=== PATIENT | female | born 1960 | race Caucasian/White ===

== ENCOUNTER 2020-01-28 08:38 | Outpatient (REF) | payer OTHER, SELFPAY ==
[2020-01-28 11:34] LABS: Estimated Average Glucose 163 mg/dL; Hemoglobin A1c % 7.3 %
[2020-01-28 11:58] LABS: Alanine Aminotransferase 36 U/L (0-31); Albumin Level 4.3 g/dL (3.5-5.0); Alkaline Phosphatase 91 U/L (39-117); Anion Gap 15 (12-20); Aspartate Amino Transferase 21 U/L (5-31); Bilirubin Total 0.4 mg/dL (0.0-1.0); Blood Urea Nitrogen 13 mg/dL (9-16); Calcium 8.7 mg/dL (8.4-10.2); Carbon Dioxide 21 mmol/L (22-29); Chloride 105 mmol/L (96-108); Cholesterol 203 mg/dL; Estimated Glomerular Filt Rate > 60; Glucose Fasting 163 mg/dL (60-99); HDL Cholesterol 50 mg/dL; LDL Cholesterol Calculated 116 mg/dl; Potassium 4.2 mmol/l (3.3-5.1); Sodium 137 mmol/L (135-145); Total Protein 6.8 g/dL (6.5-8.0); Triglycerides 187 mg/dL
== END 2020-01-28 08:39 | disposition home or self-care (01) ==
LOC: HO.MANLR 08:38
PROVIDERS: PCP Physician Assistant; Visit Provider Physician Assistant
DX: E78.00 Pure hypercholesterolemia, unspecified (principal); E11.9 Type 2 diabetes mellitus without complications
CPT/HCPCS: 80053; 80061; 83036

== ENCOUNTER 2020-07-23 07:30 | Outpatient (REF) | payer OTHER, SELFPAY ==
[2020-07-23 11:51] LABS: Estimated Average Glucose 192 mg/dL; Hemoglobin A1c % 8.3 %
[2020-07-23 12:05] LABS: Alanine Aminotransferase 55 U/L (0-31); Albumin Level 4.6 g/dL (3.5-5.0); Alkaline Phosphatase 97 U/L (39-117); Anion Gap 16 (12-20); Aspartate Amino Transferase 36 U/L (5-31); Bilirubin Total 0.7 mg/dL (0.0-1.0); Blood Urea Nitrogen 13 mg/dL (9-16); Calcium 9.3 mg/dL (8.4-10.2); Carbon Dioxide 23 mmol/L (22-29); Chloride 101 mmol/L (96-108); Cholesterol 212 mg/dL; Estimated Glomerular Filt Rate > 60; Glucose Fasting 165 mg/dL (60-99); HDL Cholesterol 53 mg/dL; LDL Cholesterol Calculated 111 mg/dl; Potassium 4.4 mmol/L (3.3-5.1); Sodium 136 mmol/L (135-145); Total Protein 7.3 g/dL (6.5-8.0); Triglycerides 241 mg/dL
[2020-07-23 13:31] LABS: Creatinine Urine 42.06 mg/dL; Microalbum/Creatinine Ratio Ur 11.8 ug/mg cr
== END 2020-07-23 07:31 | disposition home or self-care (01) ==
LOC: HO.MANLDS 07:30
PROVIDERS: PCP Internal Medicine; Visit Provider Physician Assistant
DX: E78.00 Pure hypercholesterolemia, unspecified (principal); E11.9 Type 2 diabetes mellitus without complications
CPT/HCPCS: 36415; 80053; 80061; 82043; 83036

== ENCOUNTER 2020-11-02 08:29 | Outpatient (REF) | payer OTHER, SELFPAY ==
[2020-11-02 11:53] LABS: Estimated Average Glucose 177 mg/dL; Hemoglobin A1c % 7.8 %
== END 2020-11-02 08:30 | disposition home or self-care (01) ==
LOC: HO.MANLDS 08:29
PROVIDERS: PCP Physician Assistant; Visit Provider Physician Assistant
DX: E78.00 Pure hypercholesterolemia, unspecified (principal); E11.9 Type 2 diabetes mellitus without complications
CPT/HCPCS: 36415; 83036

== ENCOUNTER 2020-11-29 10:47 | Outpatient (REF) | payer OTHER, SELFPAY ==
--- NOTE | ~2020-11-29 | MM_ITS ---
EXAMINATION: MM SCREENING DIGITAL BREAST TOMOSYNTHESIS, BILATERAL CLINICAL INFORMATION: Screening. Asymptomatic. The lifetime risk of breast cancer based on the Tyrer-Cuzick Model is 7%. COMPARISON: Mammography: 09/04/2019, 08/23/2018, 08/09/2017. TECHNIQUE: Digital breast tomosynthesis is performed in both the craniocaudal and mediolateral oblique views along with computer-aided detection (CAD). Synthesized 2D images are generated from the tomosynthesis. FINDINGS: The breasts are almost entirely fatty (ACR BI-RADS breast composition Category a). Background stromal densities are similar to prior exams. No developing density. There are no significant masses, abnormal calcifications, or other abnormalities. The axilla and skin contours are unremarkable. MM/MM tomosynthesis screening BI IMPRESSION: No mammographic evidence of malignancy. ASSESSMENT: BI-RADS 1: Negative RECOMMENDATION: Routine annual mammography screening. This patient's information was entered into a reminder system with a target due date for their next mammogram.
== END 2020-11-29 10:48 | disposition home or self-care (01) ==
LOC: HO.MAMMO 10:47
PROVIDERS: Visit Provider Internal Medicine
DX: Z12.31 Encounter for screening mammogram for malignant neoplasm of breast (principal)
CPT/HCPCS: 77063; 77067

== ENCOUNTER 2021-01-26 08:28 | Outpatient (REF) | payer OTHER, SELFPAY ==
[2021-01-26 11:13] LABS: Estimated Average Glucose 154 mg/dL
[2021-01-26 11:51] LABS: Creatinine Urine 117.81 mg/dL; Microalbum/Creatinine Ratio Ur 7.6 ug/mg cr
[2021-01-26 11:58] LABS: Alanine Aminotransferase 24 U/L (0-31); Albumin Level 4.5 g/dL (3.5-5.0); Alkaline Phosphatase 83 U/L (39-117); Anion Gap 13 (12-20); Aspartate Amino Transferase 19 U/L (5-31); Bilirubin Total 0.8 mg/dL (0.0-1.0); Blood Urea Nitrogen 11 mg/dL (9-16); Calcium 9.7 mg/dL (8.4-10.2); Carbon Dioxide 24 mmol/L (22-29); Chloride 105 mmol/L (96-108); Cholesterol 179 mg/dL; Estimated Glomerular Filt Rate > 60; Glucose Fasting 146 mg/dL (60-99); HDL Cholesterol 48 mg/dL; LDL Cholesterol Calculated 101 mg/dl; Potassium 4.2 mmol/L (3.3-5.1); Sodium 138 mmol/L (135-145); Triglycerides 151 mg/dL
== END 2021-01-26 08:29 | disposition home or self-care (01) ==
LOC: HO.MANLDS 08:28
PROVIDERS: PCP Physician Assistant; Visit Provider Physician Assistant
DX: E78.00 Pure hypercholesterolemia, unspecified (principal); E11.9 Type 2 diabetes mellitus without complications
CPT/HCPCS: 36415; 80053; 80061; 82043; 83036

== ENCOUNTER 2021-04-22 11:05 | Outpatient (REF) | payer OTHER, SELFPAY ==
[2021-04-22 13:54] LABS: Estimated Average Glucose 160 mg/dL; Hemoglobin A1c % 7.2 %
== END 2021-04-22 11:06 | disposition home or self-care (01) ==
LOC: HO.MANLDS 11:05
PROVIDERS: PCP Physician Assistant; Visit Provider Physician Assistant
DX: E11.9 Type 2 diabetes mellitus without complications (principal)
CPT/HCPCS: 36415; 83036

== ENCOUNTER 2021-07-29 09:03 | Outpatient (REF) | payer OTHER, SELFPAY ==
[2021-07-29 11:41] LABS: Creatinine Urine 114.74 mg/dL; Microalbum/Creatinine Ratio Ur 17.4 ug/mg cr
[2021-07-29 11:42] LABS: Estimated Average Glucose 157 mg/dL; Hemoglobin A1c % 7.1 %
[2021-07-29 12:30] LABS: Alanine Aminotransferase 18 U/L (0-31); Albumin Level 4.2 g/dL (3.5-5.0); Alkaline Phosphatase 80 U/L (39-117); Anion Gap 14 (12-20); Aspartate Amino Transferase 14 U/L (5-31); Bilirubin Total 0.4 mg/dL (0.0-1.0); Blood Urea Nitrogen 13 mg/dL (9-16); Carbon Dioxide 23 mmol/L (22-29); Chloride 103 mmol/L (96-108); Cholesterol 191 mg/dL; Estimated Glomerular Filt Rate > 60; Glucose Random 146 mg/dL (60-115); HDL Cholesterol 47 mg/dL; LDL Cholesterol Calculated 114 mg/dl; Potassium 4.4 mmol/L (3.3-5.1); Sodium 136 mmol/L (135-145); Total Protein 6.7 g/dL (6.5-8.0); Triglycerides 152 mg/dL
== END 2021-07-29 09:04 | disposition home or self-care (01) ==
LOC: HO.MANLDS 09:03
PROVIDERS: Visit Provider Physician Assistant
DX: E11.9 Type 2 diabetes mellitus without complications (principal)
CPT/HCPCS: 36415; 80053; 80061; 82043; 83036

== ENCOUNTER 2021-10-25 13:36 | Outpatient (REF) | payer OTHER, SELFPAY ==
[2021-10-25 19:00] LABS: Estimated Average Glucose 154 mg/dL
== END 2021-10-25 13:37 | disposition home or self-care (01) ==
LOC: HO.MANLDS 13:36
PROVIDERS: Visit Provider Physician Assistant
DX: E11.9 Type 2 diabetes mellitus without complications (principal)
CPT/HCPCS: 36415; 83036

== ENCOUNTER 2021-11-11 09:59 | Emergency (ER) | payer OTHER, SELFPAY ==
--- NOTE | ~2021-11-11 | CT_ITS ---
EXAMINATION: CT ABDOMEN AND PELVIS WITH CONTRAST CLINICAL INFORMATION: Lower abdominal pain COMPARISON: CT abdomen and pelvis 08/11/2011 TECHNIQUE: Multidetector volumetric images were obtained from the superior aspect of the liver through the pubic symphysis following administration 85 mL of Omnipaque 350 intravenous contrast. Sagittal and coronal reformatted images were obtained on the technologist's workstation. Oral contrast: No This CT examination was performed using dose optimization techniques as appropriate, variously including the following: *Automated exposure control *Adjustment of mA and/or kV according to patient size (this includes techniques or standardized protocols for targeted exams where dose is matched to indication/reason for exam; i.e. extremities or head) *Use of iterative reconstruction technique DLP: 606 mGy-cm FINDINGS: LUNG BASES: The visualized lung bases are unremarkable. LIVER, GALLBLADDER, AND BILIARY TREE: Slight hepatic hypoattenuation suggesting mild steatosis. No liver lesion. No biliary ductal dilation. Status post cholecystectomy. PANCREAS: Unremarkable. SPLEEN: Unremarkable. ADRENAL GLANDS: Unremarkable. KIDNEYS AND URETERS: The kidneys are normal in size, shape, and attenuation. No hydronephrosis, hydroureter, or calculi seen. No perinephric stranding. BLADDER: Unremarkable. GASTROINTESTINAL TRACT: Sigmoid diverticulosis with segmental mural thickening of the sigmoid colon with extensive pericolonic inflammatory change consistent with acute diverticulitis. No intramural or pericolonic abscess. No extraluminal gas to suggest perforation. No additional bowel wall thickening. No dilated bowel loops. Appendix is not discretely visualized. No inflammatory change the base of the cecum. No ascites or free air. ABDOMINAL WALL: Small fat-containing umbilical hernia. LYMPH NODES: No lymphadenopathy. VASCULAR: Normal caliber abdominal aorta. Moderate atherosclerotic vascular calcifications and noncalcified plaque. PELVIC VISCERA: Unremarkable. OSSEOUS STRUCTURES: No acute fracture or suspicious osseous lesion. CT/CT abdomen pelvis w IV con IMPRESSION: 1. Findings compatible with acute sigmoid diverticulosis. No abscess or perforation identified. 2. Mild hepatic steatosis.
[2021-11-11 10:32] VITALS: BP 163/77; PULSE 100; RESP 18; TEMP 36.8; O2SAT 97; BMI 28.1
[2021-11-11 11:47] LABS: MANUAL DIFF FLAG NO
[2021-11-11 11:50] LABS: Basophils Percent Auto 0.3 % (0-2); Eosinophils Absolute Auto 0.1 X10*3/uL (0.0-0.4); Eosinophils Percent Auto 0.9 % (0-4); Hematocrit 40.7 % (37.0-47.0); Hemoglobin 13.4 g/dl (12.0-16.0); Imm Gran Abs Auto 0.03 X10*3/uL (0.00-0.03); Imm Gran Pct Auto 0.2 % (0.0-0.4); Lymphocytes Absolute Auto 1.9 X10*3/uL (1.2-4.9); Lymphocytes Percent Auto 14.8 % (20-40); Mean Corpuscular HGB Conc 32.9 g/dl (31.0-35.0); Mean Corpuscular Hemoglobin 30.8 pg (27.0-33.0); Mean Corpuscular Volume 93.6 fL (80.0-98.0); Mean Platelet Volume 8.8 fL (9.4-12.3); Monocytes Absolute Auto 0.9 X10*3/uL (0.1-1.2); Monocytes Percent Auto 7.2 % (2-11); Neutrophils Absolute Auto 9.8 x10*3/uL (2.0-8.3); Neutrophils Percent Auto 76.6 % (45-73); Platelet Count 392 X10*3/uL (160-400); Red Blood Count 4.35 X10*6/uL (4.20-5.50); Red Cell Distribution Width 12.2 % (11.0-16.0); White Blood Count 12.8 X10*3/uL (4.8-10.8)
[2021-11-11 12:10] LABS: Alanine Aminotransferase 24 U/L (0-31); Albumin Level 4.6 g/dL (3.5-5.0); Alkaline Phosphatase 115 U/L (39-117); Anion Gap 19 (12-20); Aspartate Amino Transferase 17 U/L (5-31); Bilirubin Direct 0.3 mg/dL (0.0-0.5); Bilirubin Total 0.8 mg/dL (0.0-1.0); Blood Urea Nitrogen 9 mg/dL (9-16); Calcium 9.8 mg/dL (8.4-10.2); Carbon Dioxide 23 mmol/L (22-29); Chloride 103 mmol/L (96-108); Creatinine Clr Calc Pharmacy 71.1; Estimated Glomerular Filt Rate > 60; Glucose Random 186 mg/dL (60-115); Lipase 14 U/L (8-78); Potassium 4.4 mmol/L (3.3-5.1); Sodium 141 mmol/L (135-145); Total Protein 7.5 g/dL (6.5-8.0)
[2021-11-11 15:11] VITALS: BP 153/78; PULSE 93; RESP 18; TEMP 36.7; O2SAT 98
[2021-11-11 16:24] LABS: Appearance Urine Clear; Color Urine Yellow; Glucose Urine UA Negative (Negative); Leukocyte Esterase Urine Trace (Negative); Nitrite Urine Negative (Negative); Specific Gravity - Urine <= 1.005 (1.005-1.025); UMIC TRIGGER UACC YES; Urine Blood Negative (Negative); Urine Ketones Trace mg/dL (Negative); Urine Protein Negative (Neg-Trace)
[2021-11-11 16:51] VITALS: BP 148/70; PULSE 85; RESP 18; TEMP 36.9; O2SAT 98
--- NOTE | 2021-11-11 16:56 | ED_ITS ---
HPI - Abdominal Pain General Chief Complaint: Abdominal Pain Stated Complaint: lower abd pain Time Seen by Provider: 11/11/21 16:47 Source: patient Mode of arrival: ambulatory Limitations: no limitations History of Present Illness HPI narrative: 60-year-old female with no pertinent PMHx presenting to the ED for evaluation of lower abdominal pain x 5 days. The patient tells me that since last Sunday she has been having intermittent lower abdominal pain, worse on the right side, that comes in waves. She tells me that the pain feels somewhat similar to a past incident when she had an abscess on her appendix. She was treated conservatively at that time with antibiotics and still has her appendix. She also reports associated nausea and states that she has been eating but somewhat less than usual. She has been sure to stay hydrated. She denies any changes in bowel habits including diarrhea or constipation. She has had a cholecystectomy in the past. Patient has been able to tollerate PO at home. Has had a normal colonoscopy a few years ago. Denies any vomiting, chest pain, shortness of breath, headache, dizziness, dysuria, vaginal discharge, vaginal bleeding. Related Data Previous Rx's Medication Instructions Recorded levofloxacin 750 mg tablet 750 mg PO DAILY 7 days #7 tabs 11/11/21 metronidazole 500 mg tablet 500 mg PO BID 7 days #14 tabs 11/11/21 ondansetron 4 mg disintegrating 4 mg PO Q6H PRN nausea and 11/11/21 tablet vomiting #14 tabs Allergies Allergy/AdvReac Type Severity Reaction Status Date / Time No Known Allergies Allergy Unverified 11/06/19 14:44 Review of Systems Review of Systems Constitutional : No Weight loss, No Fever, No Chills, + Fatigue, No Malaise ENT/Mouth : No sore throat, No Rhinorrhea Eyes: No Eye Pain, No Swelling, No Redness Cardiovascular : No Chest Pain, No SOB, No Dyspnea on Exertion, No Orthopnea, No Edema, No Palpitations Respiratory : No Cough, No Sputum, No Wheezing Gastrointestinal : + Nausea, No Vomiting, No Diarrhea, No Constipation, + abdominal Pain, No Hematochezia, No Melena Genitourinary : No Dysuria, No Urinary Frequency, No Hematuria, Musculoskeletal : No joint pain, No Myalgias, No Joint Swelling Skin : No Skin Lesions, No rash Neuro : No Weakness, No Numbness, No Dizziness, No Headache All other systems reviewed and are negative Yes all other systems are reviewed and are negative [facility] Past Medical History Attestation statement: The following information was validated with the patient. Source: old records reviewed and nursing notes reviewed Social History Social History Alcohol intake: former Patient Tobacco Use Status: Former Tobacco user Smoked in Last 30 Days: No Use of substances other than those prescribed or required for medical reasons: No Advance Directives: No Advance Directives Information Provided: Yes Physical Exam ED Vital Signs: Vital Signs - 24 hr 11/11/21 10:32 11/11/21 15:11 11/11/21 16:51 Temperature 98.3 F 98.0 F 98.5 F Pulse Rate 100 93 85 Respiratory Rate 18 18 18 Blood Pressure 163/77 H 153/78 H 148/70 H Pulse Oximetry 97 98 98 Oxygen Delivery Method Room Air Room Air Room Air 11/11/21 18:18 Temperature 98.2 F Pulse Rate 77 Respiratory Rate 16 Blood Pressure 140/55 H Pulse Oximetry 98 Oxygen Delivery Method Room Air BMI result Body Mass Index 28.1 vss Appearance: Alert.? Oriented X3.? No acute distress.? Head: Normocephalic, atraumatic, no step-offs or deformities Eyes: Pupils equal, round and reactive to light.? Neck: Normal inspection.? Neck supple.? CVS: Normal heart rate and rhythm.? Pulses normal.? Respiratory: No respiratory distress.? Breath sounds normal.? Abdomen: Soft. Non-distended. Mild tenderness to the lower abdomen, worse on the right side. +BS. No CVA tenderness. Negative [place], [place], [place] sign. Skin: Skin warm and dry.? Normal skin color.? Normal skin turgor.? Extremities: No lower extremity edema.? No calf ttp. 5/5 strength to bilateral upper and lower extremities Neuro: Oriented X 3.? No motor deficit.? No sensory deficit. CN 2-12 intact Course Reevaluation(s) Reevaluation #1: CBC with leukocytosis to 12.8. Chemistry within normal limits. Urine with trace leukcoyte esterase, remainder negative. CT abd/pelvis pending. Time: 17:14 Reevaluation #2: Patient's CT scan concerning for diverticulitis, patient will be given Levaquin and metronidazole. Patient complaining of some nausea after eating. Will continue to monitor. Disposition pending re-evaluation. No need for blood cu ltures and a lactic as this time as patient is not meeting criteria for sepsis, patient appears well, and there is very low suspicion. Time: 18:55 Reevaluation #3: Upon re-evaluation patient is tolerating p.o. well, able to tolerate food and liquids, I did have a discussion with patient about staying in the hospital for observation and antibiotics however patient tells me she would prefer to go home, I educated her on worrisome signs and symptoms and when to return. Will discharge patient home on Levaquin and metronidazole. This time I feel comfortable discharge home with prompt PCP and GI follow-up and patient is to return with any new or worsening symptoms. Time: 19:36 MDM - Abdominal Pain MDM Narrative Medical decision making narrative: [id number] 60 year old female presents with coplaints of right lower abdominal pain and nausea x 1 week. History of appendiceal abscess, similar pain at that time. No fevers, chills. PE remarkable for mild lower abdominal tenderness, worse on the right. No peritoneal signs. Possibly recurrent appendiceal abscess vs. appendicits, viral gastroenteritis. Other differentials include diverticulitis, gastritis. Unlikely ovarian torsion. No signs of acute abdomen. Plan labs, urine, imaging, Zofran. Medical Records Attestation: I reviewed the patient's medical records. Lab Data Attestation: I reviewed the patient's lab results. Result diagrams: 11/11/21 11:43 11/11/21 11:43 Labs: Lab Results 11/11/21 11/11/21 11/11/21 Range/Units 11:43 11:43 16:18 WBC 12.8 H (4.8-10.8) X10*3/uL RBC 4.35 (4.20-5.50) X10*6/uL Hgb 13.4 (12.0-16.0) g/dl Hct 40.7 (37.0-47.0) % MCV 93.6 (80.0-98.0) fL MCH 30.8 (27.0-33.0) pg MCHC 32.9 (31.0-35.0) g/dl RDW 12.2 (11.0-16.0) % Plt Count 392 (160-400) X10*3/uL MPV 8.8 L (9.4-12.3) fL Immature Gran % (Auto) 0.2 (0.0-0.4) % Neut % (Auto) 76.6 H (45-73) % Lymph % (Auto) 14.8 L (20-40) % [place] % (Auto) 7.2 (2-11) % Eos % (Auto) 0.9 (0-4) % Baso % (Auto) 0.3 (0-2) % Lymph # (Auto) 1.9 (1.2-4.9) X10*3/uL [place] # (Auto) 0.9 (0.1-1.2) X10*3/uL Eos # (Auto) 0.1 (0.0-0.4) X10*3/uL Baso # (Auto) 0.0 (0.0-0.2) X10*3/uL Abs Immat Gran (auto) 0.03 (0.00-0.03) X10*3/uL Absolute Neuts (auto) 9.8 H (2.0-8.3) x10*3/uL Absolute Nucleated RBC 0.000 (0.0-0.012) X10*3/uL Nucleated RBC % (auto) 0.0 (0.0-0.2) /100WBC Sodium 141 (135-145) mmol/L Potassium 4.4 (3.3-5.1) mmol/L Chloride 103 (96-108) mmol/L Carbon Dioxide 23 (22-29) mmol/L Anion Gap 19 (12-20) BUN 9 (9-16) mg/dL Creatinine 0.81 (0.5-1.4) mg/dL Estim Creat Clear Calc 71.1 Estimated GFR > 60 Random Glucose 186 H (60-115) mg/dL Calcium 9.8 D (8.4-10.2) mg/dL Total Bilirubin 0.8 (0.0-1.0) mg/dL Direct Bilirubin 0.3 (0.0-0.5) mg/dL AST 17 (5-31) U/L ALT 24 (0-31) U/L Alkaline Phosphatase 115 D (39-117) U/L Total Protein 7.5 (6.5-8.0) g/dL Albumin 4.6 (3.5-5.0) g/dL Lipase 14 (8-78) U/L Urine Color Yellow Urine Appearance Clear Urine pH 6.0 (5.0-9.0) Ur Specific Catherine <= 1.005 (1.005-1.025) Urine Protein Negative (Neg-Trace) mg/dL Urine Glucose (UA) Negative (Negative) mg/dL Urine Ketones Trace (Negative) mg/dL Urine Blood Negative (Negative) Urine Nitrite Negative (Negative) Ur Leukocyte Esterase Trace H (Negative) Urine RBC 0-2 (0-2) /HPF Urine WBC 0-5 (0-5) /HPF Ur Squamous Epith Cells 0-2 (0-2) /HPF Urine Bacteria None Seen (None Seen) Hyaline Casts 0-2 (0-2) /LPF Critical Care Time Critical Care Time Critical Care Time: No Discharge Plan Discharge Clinical Impression: Diverticulitis, Nausea Patient Disposition: Home, Self-Care Instructions: Diverticulitis (ED), Acute Nausea and Vomiting (ED), Diverticulitis Diet (ED), Acute Abdominal Pain (ED) Additional Instructions: Take your medications as prescribed. If you were prescribed antibiotics today, it is important that you take your medication to their entirety, do not skip any doses, do not finish them early. Follow-up with your primary care provider this week. Follow-up with GI Return to the emergency department with new or worsening symptoms. Such as fevers, chills, chest pain, shortness of breath, nausea, vomiting, dizziness, headache, vision changes, lethargy, worsening pain In case of emergency call 911 Zofran is medication that has been sent to your pharmacy for nausea and vomiting, please take this as prescribed, taking more than the prescribed dose can lead to adverse cardiac events. Antibiotics have been sent to your pharmacy, Levaquin is an antibiotic that but lungs to the fluoroquinolone drug class, this class has a black box warning or warning of tendon rupture, of you experience any pain to joints, it is important that you seek medical attention immediately. Return with new or worsening symptoms. Prescriptions: New metronidazole 500 mg tablet 500 mg PO BID 7 Days Qty: 14 0RF levofloxacin 750 mg tablet 750 mg PO DAILY 7 Days Qty: 7 0RF ondansetron 4 mg tablet,disintegrating 4 mg PO Q6H PRN (Reason: nausea and vomiting) Qty: 14 0RF Referrals: [facility] [place] [facility] [Provider Group] - 3 days Diego Alex MD [Primary Care Provider] - 2 days Stand Alone Forms: Work/School Release
[2021-11-11] MEDS: ondansetron HCL 4 MG/2 ML VIAL IVPUSH (17:21)
[2021-11-11] MEDS: iohexoL 350 MG/ML 100 ML INFUS..BTL IV (17:54)
[2021-11-11 18:18] VITALS: BP 140/55; PULSE 77; RESP 16; TEMP 36.8; O2SAT 98
[2021-11-11 18:50] LABS: Bacteria Urine None Seen (None Seen); Hyaline Casts Urine 0-2 /LPF (0-2); RBC Urine 0-2 /HPF (0-2); Squamous Epithelial Cell Urine 0-2 /HPF (0-2); WBC Urine 0-5 /HPF (0-5)
--- NOTE | 2021-11-11 19:05 | PC.NURSE ---
Spoke to [place], provider-no lactic acid, blood cultures draw needed.
[2021-11-11] MEDS: Ketorolac Tromethamine 15 MG/ML VIAL IVPUSH (19:09)
[2021-11-11] MEDS: levoFLOXacin/D5W 750 MG/150 ML PIGGYBACK 100 MG IV (19:10)
--- NOTE | 2021-11-11 19:20 | PC.NURSE ---
Patient is alert and oriented x5, pleasant and cooperative. VSS. Patient reports pain is right lower quadrant 2/10 at present, patient describes pain as achy, cramping. Patient assisted to the restroom. Patient ambulates independently. Gait is steady. Meds administered per APR.
[2021-11-11] MEDS: metroNIDAZOLE/NS 500 MG/100 ML PIGGYBACK 100 MG IV (20:52)
--- NOTE | 2021-11-11 22:14 | PC.NURSE ---
Patient denies nausea at this time. Patient tolerated eating peanut butter sandwich with jean shari well.
[2021-11-11 22:15] VITALS: BP 128/74; PULSE 68; RESP 18; TEMP 36.8; O2SAT 99
== END 2021-11-11 22:17 | disposition home or self-care (01) ==
PROVIDERS: Emergency Provider Student in an Organized Health Care Education/Training Program; PCP Internal Medicine
DX: K57.32 Diverticulitis of large intestine without perforation or abscess without bleeding (principal); R11.0 Nausea
CPT/HCPCS: 36415; 74177; 80053; 81001; 82248; 83690; 85025; 96365; 96375; 99284; 99285; J1885; J1956; J2405; Q9967

== ENCOUNTER 2021-11-14 11:22 | Outpatient (REF) | payer OTHER, SELFPAY ==
[2021-11-14 14:19] LABS: Anion Gap 18 (12-20); Blood Urea Nitrogen 9 mg/dL (9-16); Calcium 9.8 mg/dL (8.4-10.2); Carbon Dioxide 24 mmol/L (22-29); Chloride 102 mmol/L (96-108); Estimated Glomerular Filt Rate > 60; Glucose Random 160 mg/dL (60-115); Potassium 4.8 mmol/L (3.3-5.1); Sodium 139 mmol/L (135-145)
== END 2021-11-14 11:23 | disposition home or self-care (01) ==
LOC: HO.MANLDS 11:22
PROVIDERS: Visit Provider Physician Assistant
DX: K57.92 Diverticulitis of intestine, part unspecified, without perforation or abscess without bleeding (principal)
CPT/HCPCS: 36415; 80048

== ENCOUNTER 2021-12-05 11:19 | Outpatient (REF) | payer OTHER, SELFPAY ==
--- NOTE | ~2021-12-05 | MM_ITS ---
EXAMINATION: MM SCREENING DIGITAL BREAST TOMOSYNTHESIS, BILATERAL CLINICAL INFORMATION: Screening. Asymptomatic. The lifetime risk of breast cancer based on the Tyrer-Cuzick Model is 8%. COMPARISON: Mammography: 11/29/2020, 09/04/2019, 08/23/2018 TECHNIQUE: Digital breast tomosynthesis is performed in both the craniocaudal and mediolateral oblique views along with computer-aided detection (CAD). Synthesized 2D images are generated from the tomosynthesis. FINDINGS: The breasts are almost entirely fatty (ACR BI-RADS breast composition Category a). Stromal markings are normal. No architectural abnormality. There are no significant masses, abnormal calcifications, or other abnormalities. The axilla and skin contours are unremarkable. No significant changes. MM/MM tomosynthesis screening BI IMPRESSION: No mammographic evidence of malignancy. ASSESSMENT: BI-RADS 1: Negative RECOMMENDATION: Routine annual mammography screening. This patient's information was entered into a reminder system with a target due date for their next mammogram.
== END 2021-12-05 11:20 | disposition home or self-care (01) ==
LOC: HO.MAMMO 11:19
PROVIDERS: Visit Provider Physician Assistant
DX: Z12.31 Encounter for screening mammogram for malignant neoplasm of breast (principal)
CPT/HCPCS: 77063; 77067

== ENCOUNTER 2022-01-24 08:59 | Outpatient (REF) | payer OTHER, SELFPAY ==
[2022-01-24 12:11] LABS: Estimated Average Glucose 174 mg/dL; Hemoglobin A1c % 7.7 %
[2022-01-24 12:43] LABS: Alanine Aminotransferase 19 U/L (0-31); Albumin Level 4.3 g/dL (3.5-5.0); Alkaline Phosphatase 91 U/L (39-117); Anion Gap 15 (12-20); Aspartate Amino Transferase 17 U/L (5-31); Bilirubin Total 0.4 mg/dL (0.0-1.0); Blood Urea Nitrogen 13 mg/dL (9-16); Calcium 9.4 mg/dL (8.4-10.2); Carbon Dioxide 23 mmol/L (22-29); Chloride 106 mmol/L (96-108); Cholesterol 210 mg/dL; Estimated Glomerular Filt Rate > 60; Glucose Random 157 mg/dL (60-115); HDL Cholesterol 49 mg/dL; LDL Cholesterol Calculated 121 mg/dl; Potassium 4.5 mmol/L (3.3-5.1); Sodium 139 mmol/L (135-145); Total Protein 6.8 g/dL (6.5-8.0); Triglycerides 201 mg/dL
== END 2022-01-24 09:00 | disposition home or self-care (01) ==
LOC: HO.MANLDS 08:59
PROVIDERS: Visit Provider Physician Assistant
DX: E11.9 Type 2 diabetes mellitus without complications (principal)
CPT/HCPCS: 36415; 80053; 80061; 83036

== ENCOUNTER 2022-02-06 08:54 | Day surgery (SDC) | payer OTHER, SELFPAY ==
[2022-02-01 12:30] VITALS: BMI 28.7
--- NOTE | 2022-02-03 10:28 | HO.ANESPROP2 ---
Documented by User: Josy Dukes NP 02/03/22 10:29 HPI - Anesthesia Eval Consult details Narrative: 61yo F for Colonoscopy [facility] Past Medical History Medical History (Updated 02/06/22 @ 09:05 by Pam Aviles RN) Diabetes History of gallbladder disease Social History Social History Alcohol intake: former Patient Tobacco Use Status: Former Tobacco user Meds Allergies Allergy/AdvReac Type Severity Reaction Status Date / Time amoxicillin Allergy Rash Verified 02/06/22 09:02 levofloxacin Allergy Rash Verified 02/06/22 09:03 metronidazole [From Flagyl] Allergy Rash Verified 02/06/22 09:02 Exam Exam Date and Time: February 03, 2022 1028 Height,Weight and Vital Signs: Height 5 ft 2 in Weight 71.214 kg Pertinent Lab Results Pertinent Lab Results: Laboratory Tests 11/11/21 01/24/22 11:43 09:07 WBC 12.8 H Hgb 13.4 Hct 40.7 Plt Count 392 Sodium 139 Potassium 4.5 Chloride 106 Carbon Dioxide 23 BUN 13 Creatinine 0.77 Assessment and Plan Assessment Anesthesia Assessment: Chart Reviewed Documented by User: Mazin Sexton MD 02/06/22 12:53 HPI - Anesthesia Eval Consult details Narrative: 61yo F for Colonoscopy subclavian steal syndrome . [facility] Past Medical History Medical History (Updated 02/06/22 @ 09:05 by Pam Aviles RN) Diabetes History of gallbladder disease Functional capacity: independent ambulation Family History Family history of problems with anesthesia: No Surgical History History of Problems with Anesthesia: No Social History Social History Alcohol intake: former Patient Tobacco Use Status: Former Tobacco user Meds Allergies Allergy/AdvReac Type Severity Reaction Status Date / Time amoxicillin Allergy Rash Verified 02/06/22 09:02 levofloxacin Allergy Rash Verified 02/06/22 09:03 metronidazole [From Flagyl] Allergy Rash Verified 02/06/22 09:02 Exam Airway Mallampati Class: III TM Dist: >3cm Neck ROM: Full Loose/Missing/Broken Teeth: Yes Heart: S1,S2 Lungs: b/l breath sounds Assessment and Plan Assessment Anesthesia Assessment: Anesthesia Plan Discussed Final Anesthetic Review Family History of Problems with Anesthesia: No History of Problems with Anesthesia: No NPO: Yes ASA Class: II Patient Risk: Intermediate Procedure Risk: Intermediate Anesthetic Plan Anesthetic Plan: MAC: Disposition: Standard PACU
--- NOTE | 2022-02-06 09:05 | MHC.SHP ---
Pre-Procedural Eval Section A Date of Service: 02/06/22 Section B Chief Complaint: History of diverticulitis Details of Present Illness: 61 y.o F with hx of uncomplicated sigmoid diverticulitis Oct 2021. Previous colo 2016 (Dr. Hayes) normal mucosa to terminal ileum. Two rectal polyps-hyperplastic. Good prep. Here for follow up colonoscopy. Relevant Family History (Specify if Yes): No Relevant Social History: None Present Medications: see Short Stay Collaborative assessment Medical History: No relevant PMH History of Previous Operations: No relevant previous surgery Allergies: Allergies Allergy/AdvReac Type Severity Reaction Status Date / Time amoxicillin Allergy Rash Verified 02/06/22 09:02 levofloxacin Allergy Rash Verified 02/06/22 09:03 metronidazole [From Flagyl] Allergy Rash Verified 02/06/22 09:02 Review of Systems Review of Systems Comment: 10 point ROS negative except as above Exam Exam Comment: Gen appear: No acute distress, well nourished HEENT: no icterus Chest: No overt resp distress Abd: soft, nontender, nondistended Psych: Stable affect, answering questions appropriately Neuro: A/Ox3 noted to move all extremities spontaneously Plan Diagnosis/Plan: Unchanged I have reviewed the history and physical and performed a pertinent physical examination on my patient. No changes have occurred unless specified. Time Spent With Patient Time: Total time managing care of this patient today ____ minutes.
--- NOTE | 2022-02-06 09:10 | P.OP_ITS ---
Operative Note Operative Note Date of Service: 02/06/22 Narrative: Procedure: Colonoscopy Indication: Diverticulitis Endoscopist: Rima Beal MD Anesthesia Provider: Robyn Fry CRNA Anesthesia type: MAC Instrument: Olympus [id number]-H190L Consent: Indication, risks vs benefits, and alternatives were discussed with the patient who gave written informed consent to proceed. EKG, pulse, pulse oximetry and blood pressure were monitored throughout the procedure. Please see anesthesia flowsheet. Procedure: The patient was brought to the procedure room and placed in the left lateral decubitus position. IV medications were administered by the anesthesia provider in attendance. A digital rectal exam was performed which was abnormal due to finding of hemorrhoids. The colonoscope was then inserted through the anus and advanced through the colon to the cecum at 90 cm,and terminal ileum. A wide open appendiceal orifice and ileocecal valve were identified. Mucosa was carefully examined under high definition white light as the instrument was slowly withdrawn in a retrograde panoramic fashion. Retroflexion was performed in rectum. The procedure was not difficult. There were no immediate obvious complications. The quality of the prep was BBPS: 3+3+2 = adequate Withdrawal time 16 minutes. Limitations: No limitations. Findings: Mucosa: Normal to cecum and terminal ileum. Protruding lesions: * 4 pearlescent appearing sessile polyp of size 2-8 mm in sigmoid colon. Cold snare polypectomy was performed. The polyps were completely removed and retrieved. * Medium internal hemorrhoids without stigmata of recent bleeding. Excavated lesions: * Small and large mouthed diverticula in sigmoid colon. Impression: 1. Normal colon and terminal ileum mucosa 2. Total of 4 polyps removed from sigmoid colon. 3. Internal hemorrhoids Recommendations: - Follow path results. - Repeat colonoscopy in 7-10 years if polyps are hyperplastic, otherwise 5 years if adenomas.
[2022-02-06 09:15] VITALS: BP 125/85; PULSE 81; RESP 16; TEMP 36.2; O2SAT 95; BMI 29.2
[2022-02-06 09:29] LABS: Glucose, Whole Blood 155 mg/dL (60-115)
[2022-02-06 10:23] VITALS: BP 102/65; PULSE 86; RESP 16; TEMP 36.1; O2SAT 96
[2022-02-06 10:38] VITALS: BP 107/57; PULSE 64; RESP 14; TEMP 36.4; O2SAT 95
== END 2022-02-06 11:21 ==
PROVIDERS: PCP Internal Medicine; Visit Provider Internal Medicine
PROC: 0DJD8ZZ Inspection of Lower Intestinal Tract, Via Natural or Artificial Opening Endoscopic (ICD-10-PCS; CPT 45378; principal; 2022-02-06 10:00)
DX: Z12.11 Encounter for screening for malignant neoplasm of colon (principal); Z87.19 Personal history of other diseases of the digestive system; K63.5 Polyp of colon; K57.30 Diverticulosis of large intestine without perforation or abscess without bleeding; K64.8 Other hemorrhoids; E11.9 Type 2 diabetes mellitus without complications; Z90.49 Acquired absence of other specified parts of digestive tract; Z87.891 Personal history of nicotine dependence; Z88.0 Allergy status to penicillin; Z88.1 Allergy status to other antibiotic agents
CPT/HCPCS: 45385; 82947; 88305

== ENCOUNTER 2022-04-26 08:52 | Outpatient (REF) | payer OTHER, SELFPAY ==
[2022-04-26 11:57] LABS: Creatinine Urine 120.33 mg/dL; Microalbum/Creatinine Ratio Ur 7.4 ug/mg cr
[2022-04-26 13:20] LABS: Estimated Average Glucose 180 mg/dL; Hemoglobin A1c % 7.9 %
[2022-04-26 13:34] LABS: Alanine Aminotransferase 29 U/L (0-31); Albumin Level 4.3 g/dL (3.5-5.0); Alkaline Phosphatase 83 U/L (39-117); Anion Gap 14 (12-20); Aspartate Amino Transferase 21 U/L (5-31); Bilirubin Total 0.5 mg/dL (0.0-1.0); Blood Urea Nitrogen 10 mg/dL (9-16); Calcium 9.4 mg/dL (8.4-10.2); Carbon Dioxide 26 mmol/L (22-29); Chloride 104 mmol/L (96-108); Cholesterol 195 mg/dL; Estimated Glomerular Filt Rate > 60; Glucose Random 160 mg/dL (60-115); HDL Cholesterol 49 mg/dL; LDL Cholesterol Calculated 111 mg/dl; Potassium 4.7 mmol/L (3.3-5.1); Sodium 139 mmol/L (135-145); Total Protein 6.6 g/dL (6.5-8.0); Triglycerides 175 mg/dL
== END 2022-04-26 08:53 | disposition home or self-care (01) ==
LOC: HO.MANLDS 08:52
PROVIDERS: Visit Provider Physician Assistant
DX: E11.9 Type 2 diabetes mellitus without complications (principal)
CPT/HCPCS: 36415; 80053; 80061; 82043; 83036

== ENCOUNTER 2022-05-08 09:51 | Outpatient (REF) | payer OTHER, SELFPAY ==
[2022-05-08 11:54] LABS: Iron 66 mcg/dL (30-160); Percent Iron Saturation 22 % (15-50); Total Iron Binding Capacity 302 mcg/dL (228-428); Unsaturated Iron Binding 236 ug/dL
[2022-05-08 12:03] LABS: Erythrocyte Sedimentation Rate 16 MM/HR (0-20)
[2022-05-08 12:21] LABS: Free T4 (Free Thyroxine) 1.01 ng/dL (0.71-1.85); Thyroid Stimulating Hormone 0.99 uIU/mL (0.32-4.0); Vitamin B12 458 pg/mL (200-900); Vitamin D 25-OH Total 35.6 ng/mL (>30)
== END 2022-05-08 09:52 | disposition home or self-care (01) ==
LOC: HO.MANLDS 09:51
PROVIDERS: Visit Provider Physician Assistant
DX: R53.83 Other fatigue (principal); G93.32 Myalgic encephalomyelitis/chronic fatigue syndrome
CPT/HCPCS: 36415; 82306; 82607; 83540; 84439; 84443; 85652; 86140

== ENCOUNTER 2022-08-07 10:36 | Outpatient (REF) | payer OTHER, SELFPAY ==
[2022-08-07 14:10] LABS: Estimated Average Glucose 163 mg/dL; Hemoglobin A1c % 7.3 %
== END 2022-08-07 10:37 | disposition home or self-care (01) ==
LOC: HO.MANLDS 10:36
PROVIDERS: Visit Provider Physician Assistant
DX: E11.9 Type 2 diabetes mellitus without complications (principal)
CPT/HCPCS: 36415; 83036

== ENCOUNTER 2022-12-01 08:38 | Outpatient (REF) | payer OTHER, SELFPAY ==
[2022-12-01 14:21] LABS: Alanine Aminotransferase 26 U/L (0-31); Albumin Level 4.3 g/dL (3.5-5.0); Alkaline Phosphatase 86 U/L (39-117); Anion Gap 12 (12-20); Aspartate Amino Transferase 23 U/L (5-31); Bilirubin Total 0.5 mg/dL (0.0-1.0); Blood Urea Nitrogen 9 mg/dL (9-16); Calcium 9.3 mg/dL (8.4-10.2); Carbon Dioxide 23 mmol/L (22-29); Chloride 107 mmol/L (96-108); Cholesterol 156 mg/dL (<200); Estimated Glomerular Filt Rate > 60; Glucose Random 161 mg/dL (60-115); HDL Cholesterol 47 mg/dL (>40); LDL Cholesterol Calculated 82 mg/dL (<100); Potassium 4.4 mmol/L (3.3-5.1); Sodium 138 mmol/L (135-145); Total Protein 7.1 g/dL (6.5-8.0); Triglycerides 136 mg/dL (<150)
[2022-12-01 14:28] LABS: Estimated Average Glucose 174 mg/dL; Hemoglobin A1c % 7.7 % (<6.0)
[2022-12-01 14:48] LABS: Creatinine Urine 15.48 mg/dL; Microalbumin Urine < 5.0 mg/L
== END 2022-12-01 08:39 | disposition home or self-care (01) ==
LOC: HO.MANLDS 08:38
PROVIDERS: Visit Provider Physician Assistant
DX: E11.9 Type 2 diabetes mellitus without complications (principal)
CPT/HCPCS: 36415; 80053; 80061; 82043; 82570; 83036

== ENCOUNTER 2022-12-12 10:43 | Outpatient (REF) | payer OTHER, SELFPAY | END 2022-12-12 10:44 | disposition home or self-care (01) | LOC: HO.MAMMO 10:43 | PROVIDERS: Visit Provider Internal Medicine | DX: Z12.31 Encounter for screening mammogram for malignant neoplasm of breast (principal) | CPT/HCPCS: 77063; 77067 ==

== ENCOUNTER → 2022-12-12 11:00 | Outpatient (BNV) | payer OTHER, SELFPAY | PROVIDERS: Visit Provider Radiology Diagnostic Radiology | DX: Z12.31 Encounter for screening mammogram for malignant neoplasm of breast (principal) | CPT/HCPCS: 77063; 77067 ==

== ENCOUNTER 2023-03-06 10:06 | Outpatient (REF) | payer OTHER, SELFPAY ==
[2023-03-06 13:43] LABS: Estimated Average Glucose 174 mg/dL; Hemoglobin A1c % 7.7 % (<6.0)
[2023-03-06 14:11] LABS: Alanine Aminotransferase 25 U/L (0-31); Albumin Level 4.3 g/dL (3.5-5.0); Alkaline Phosphatase 91 U/L (39-117); Anion Gap 14 (12-20); Aspartate Amino Transferase 20 U/L (5-31); Bilirubin Total 0.4 mg/dL (0.0-1.0); Blood Urea Nitrogen 12 mg/dL (9-16); Calcium 9.6 mg/dL (8.4-10.2); Carbon Dioxide 22 mmol/L (22-29); Chloride 104 mmol/L (96-108); Estimated Glomerular Filt Rate > 60; Glucose Random 202 mg/dL (60-115); Potassium 3.9 mmol/L (3.3-5.1); Sodium 136 mmol/L (135-145); Total Protein 7.2 g/dL (6.5-8.0)
[2023-03-06 14:12] LABS: Creatinine Urine 23.55 mg/dL; Microalbumin Urine < 5.0 mg/L
== END 2023-03-06 10:07 | disposition home or self-care (01) ==
LOC: HO.MANLDS 10:06
PROVIDERS: Visit Provider Physician Assistant
DX: E11.9 Type 2 diabetes mellitus without complications (principal)
CPT/HCPCS: 36415; 80053; 82043; 82570; 83036

== ENCOUNTER 2023-03-16 11:14 | Outpatient (REF) | payer OTHER, SELFPAY ==
--- NOTE | ~2023-03-16 | XR_ITS ---
EXAMINATION: XR LUMBOSACRAL SPINE CLINICAL INFORMATION: Lumbar back pain COMPARISON: None available. TECHNIQUE: Three views of the lumbosacral spine. FINDINGS: The visualized lumbar vertebrae are intact with mild L2-L3 dextroscoliosis. Intervertebral disc spaces are markedly reduced at L4-L5 and L5-S1 level. Surgical clips are seen in medial right upper abdomen. XR/XR lumbar spine 2-3V IMPRESSION: 1. Advanced degenerative lumbar disc disease at L4-L5 and L5-S1 level. 2. Mild L2-L3 dextroscoliosis.
== END 2023-03-16 11:15 | disposition home or self-care (01) ==
LOC: HO.XRAY 11:14
PROVIDERS: PCP Internal Medicine; Visit Provider Physician Assistant
DX: M51.36 Other intervertebral disc degeneration, lumbar region (principal)
CPT/HCPCS: 72100

== ENCOUNTER 2023-04-04 18:08 | Outpatient (REF) | payer OTHER, SELFPAY ==
--- NOTE | ~2023-04-04 | MR_ITS ---
EXAMINATION: MR LUMBAR SPINE WITHOUT CONTRAST CLINICAL INFORMATION: Low back pain for one month, pain radiating to left hip COMPARISON: None available. TECHNIQUE: MRI of the lumbar spine was obtained using routine sequences without contrast. FINDINGS: The visualized lumbar vertebrae are intact with normal alignment. No focal bone lesion with abnormal signal can be seen. Evaluation of the intervertebral discs show: T12/L1: Intervertebral disc height is normal, with normal T2 signal. No focal disc herniation is seen. Bilateral T12/L1 neuroforamina are patent. Bilateral apophyseal joints are intact with normal alignment. L-1/L-2: Intervertebral disc height is normal, with normal T2 signal. No focal disc herniation is seen. Bilateral L1-L2 neuroforamina are patent. Bilateral apophyseal joints are intact with normal alignment. L2/L3: Intervertebral disc height is markedly decreased, with mild loss of T2 signal. Moderate asymmetric left posterior and left foraminal disc protrusion is seen. There are resulting marked effacement of left lateral recess and asymmetric marked left L2-L3 neuroforaminal stenosis. There is mild spinal stenosis due to additional impingement by hypertrophic ligamentum flavum. Bilateral apophyseal joints are intact with normal alignment. L3/L4: Intervertebral disc height is normal, with mild loss of T2 signal. Mild posterior disc protrusion is seen. Bilateral L3-L4 neuroforamina are patent. Bilateral apophyseal joints are intact with normal alignment. L4/L5: Intervertebral disc height is markedly decreased, with mild loss of T2 signal. Moderate asymmetric right posterior disc protrusion is seen. There is moderate spinal stenosis due to additional impingement by hypertrophic ligamentum flavum. Bilateral L4-L5 neuroforamina are patent. Bilateral apophyseal joints are intact with normal alignment. Bilateral apophyseal joints show loss of joint space, sclerosis, facet hypertrophy and osteophytosis. L5/S1: Intervertebral disc height is markedly decreased, with moderate loss of T2 signal. Mild posterior disc protrusion is seen. Bilateral L5-S1 neuroforamina are patent. Bilateral apophyseal joints are intact with normal alignment. Bilateral apophyseal joints show loss of joint space, sclerosis, facet hypertrophy and osteophytosis. Conus medullaris is seen normally at L1 level. MR/MR lumbar spine wo con IMPRESSION: 1. Moderate asymmetric left posterior L2-L3 disc protrusion effacing the left lateral recess, causing marked left L2-L3 neural foramen stenosis. 2. Mild L2-L3 and moderate L4-L5 spinal stenosis are seen due to combination of posterior disc protrusion and impingement by hypertrophic ligamentum flavum. 3. Multilevel degenerative lumbar disc disease, most severe at L4-L5 and L5-S1 level. 4. Marked bilateral L4-L5 apophyseal joint osteoarthritis.
== END 2023-04-04 18:09 | disposition home or self-care (01) ==
LOC: HO.MRI 18:08
PROVIDERS: PCP Internal Medicine; Visit Provider Physician Assistant
DX: M51.36 Other intervertebral disc degeneration, lumbar region (principal)
CPT/HCPCS: 72148

== ENCOUNTER 2023-06-06 09:31 | Outpatient (REF) | payer OTHER, SELFPAY ==
[2023-06-06 13:42] LABS: Estimated Average Glucose 148 mg/dL; Hemoglobin A1c % 6.8 % (<6.0)
[2023-06-06 14:12] LABS: Alanine Aminotransferase 18 U/L (0-31); Albumin Level 4.3 g/dL (3.5-5.0); Alkaline Phosphatase 96 U/L (39-117); Anion Gap 13 (12-20); Aspartate Amino Transferase 18 U/L (5-31); Bilirubin Total 0.5 mg/dL (0.0-1.0); Blood Urea Nitrogen 14 mg/dL (9-16); Calcium 9.7 mg/dL (8.4-10.2); Carbon Dioxide 24 mmol/L (22-29); Chloride 105 mmol/L (96-108); Cholesterol 171 mg/dL (<200); Estimated Glomerular Filt Rate > 60; Glucose Random 134 mg/dL (60-115); HDL Cholesterol 50 mg/dL (>40); LDL Cholesterol Calculated 98 mg/dL (<100); Sodium 138 mmol/L (135-145); Total Protein 7.1 g/dL (6.5-8.0); Triglycerides 116 mg/dL (<150)
== END 2023-06-06 09:32 | disposition home or self-care (01) ==
LOC: HO.MANLDS 09:31
PROVIDERS: Visit Provider Physician Assistant
DX: E11.9 Type 2 diabetes mellitus without complications (principal)
CPT/HCPCS: 36415; 80053; 80061; 83036

== ENCOUNTER 2023-09-04 09:53 | Outpatient (REF) | payer OTHER, SELFPAY ==
[2023-09-04 13:30] LABS: Estimated Average Glucose 137 mg/dL; Hemoglobin A1c % 6.4 % (<6.0)
[2023-09-04 14:02] LABS: Alanine Aminotransferase 16 U/L (0-31); Albumin Level 4.3 g/dL (3.5-5.0); Alkaline Phosphatase 98 U/L (39-117); Anion Gap 18 (12-20); Aspartate Amino Transferase 19 U/L (5-31); Bilirubin Total 0.4 mg/dL (0.0-1.0); Blood Urea Nitrogen 11 mg/dL (9-16); Calcium 9.8 mg/dL (8.4-10.2); Carbon Dioxide 21 mmol/L (22-29); Chloride 105 mmol/L (96-108); Estimated Glomerular Filt Rate > 60; Glucose Random 141 mg/dL (60-115); Potassium 4.7 mmol/L (3.3-5.1); Sodium 139 mmol/L (135-145); Total Protein 7.4 g/dL (6.5-8.0)
== END 2023-09-04 09:54 | disposition home or self-care (01) ==
LOC: HO.MANLDS 09:53
PROVIDERS: Visit Provider Physician Assistant
DX: E11.9 Type 2 diabetes mellitus without complications (principal)
CPT/HCPCS: 36415; 80053; 83036

== ENCOUNTER 2023-12-12 09:14 | Outpatient (REF) | payer OTHER, SELFPAY ==
[2023-12-12 13:45] LABS: Estimated Average Glucose 140 mg/dL; Hemoglobin A1C 158.9924 umol/L; Hemoglobin A1c % 6.5 % (<6.0); Total Hemoglobin (HGBA1C) 3337.3951 umol/L
[2023-12-12 13:50] LABS: Alanine Aminotransferase 19 U/L (0-31); Albumin Level 4.1 g/dL (3.5-5.0); Alkaline Phosphatase 101 U/L (39-117); Anion Gap 14 (12-20); Aspartate Amino Transferase 24 U/L (5-31); Bilirubin Total 0.4 mg/dL (0.0-1.0); Blood Urea Nitrogen 13 mg/dL (9-16); Calcium 9.5 mg/dL (8.4-10.2); Carbon Dioxide 24 mmol/L (22-29); Chloride 106 mmol/L (96-108); Cholesterol 166 mg/dL (<200); Estimated Glomerular Filt Rate > 60; Glucose Random 118 mg/dL (60-115); HDL Cholesterol 53 mg/dL (>40); LDL Cholesterol Calculated 91 mg/dL (<100); Potassium 3.9 mmol/L (3.3-5.1); Sodium 140 mmol/L (135-145); Triglycerides 111 mg/dL (<150)
[2023-12-12 14:13] LABS: Creatinine Urine 53.42 mg/dL; Microalbum/Creatinine Ratio Ur 9.3 ug/mg cr (<30)
== END 2023-12-12 09:15 | disposition home or self-care (01) ==
LOC: HO.MANLDS 09:14
PROVIDERS: Visit Provider Physician Assistant
DX: E11.9 Type 2 diabetes mellitus without complications (principal)
CPT/HCPCS: 36415; 80053; 80061; 82043; 82570; 83036

== ENCOUNTER 2023-12-17 10:47 | Outpatient (REF) | payer OTHER, SELFPAY ==
--- NOTE | ~2023-12-17 | MM_ITS ---
EXAMINATION: MM SCREENING DIGITAL BREAST TOMOSYNTHESIS, BILATERAL CLINICAL INFORMATION: Screening. Asymptomatic. COMPARISON: Mammography: Comparison is made with available priors TECHNIQUE: Digital breast mammography with tomosynthesis is performed in both the craniocaudal and mediolateral oblique views along with computer-aided detection (CAD). FINDINGS: There are scattered areas of fibroglandular density (ACR BI-RADS breast composition Category b). There are no significant masses, abnormal calcifications, or other abnormalities. MM/MM tomosynthesis screening BI IMPRESSION: No mammographic evidence of malignancy. ASSESSMENT: BI-RADS BI-RADS 1 - Negative RECOMMENDATION: Routine annual mammography screening. 1 year F/U This examination should not preclude the clinical evaluation of a suspicious palpable abnormality. This patient's information was entered into a reminder system with a target due date for their next mammogram. Electronically signed by: Cass Chapa DO 12/25/2023 11:23 AM MICHELINE
== END 2023-12-17 10:48 | disposition home or self-care (01) ==
LOC: HO.MAMMO 10:47
PROVIDERS: PCP Internal Medicine; Visit Provider Internal Medicine
DX: Z12.31 Encounter for screening mammogram for malignant neoplasm of breast (principal)
CPT/HCPCS: 77063; 77067

== ENCOUNTER → 2023-12-17 11:00 | Outpatient (BNV) | payer OTHER, SELFPAY | PROVIDERS: PCP Internal Medicine; Visit Provider Internal Medicine | DX: Z12.31 Encounter for screening mammogram for malignant neoplasm of breast (principal) | CPT/HCPCS: 77063; 77067 ==

== ENCOUNTER 2024-03-14 11:55 | Outpatient (REF) | payer OTHER, SELFPAY ==
[2024-03-14 13:40] LABS: Estimated Average Glucose 143 mg/dL; Hemoglobin A1C 183.8009 umol/L; Hemoglobin A1c % 6.6 % (<6.0); Total Hemoglobin (HGBA1C) 3745.1191 umol/L
--- OUTSIDE RECORDS SUMMARY | 2024-03-14 14:06 | XMS_ITS | Data Portability ---
Author Organization [facility] (formerly [facility])[3][facility] Home Service Address [address] [place] [address] Assessment Encounter Date Assessment Date Assessment LastModified by Organization Details LastModified Time 03/13/2023 03/13/2023 Patient agreed and verbally consents to this audio and video Telehealth appt via a secure platform The patient denies little pleasure in activities they find enjoyable, feeling depressed, difficulties sleeping, feeling tired or having little energy, change in appetite, feeling guilty, overwhelmed or unmotivated. The patient denies suicidal ideation, thoughts of hurting themselves or others. Their mood is appropriate, they show good judgement and clear understanding of the conversation. They are orientated to time, place and person. They are not expressing any concerning thoughts or actions that would need further investigation and treatment for mental health. [email or web address] Not available 03/13/2023 14:31:24 Plan of Treatment Reminders Order Date Submit Date Provider Last Modified By Organization Details Last Modified Time Details Appointments FOLLOW UP 15 2024 01:30P DESHAUN BOYCE Not available Not available Not available Lab CMP, serum or plasma 2023 024 [facility], [address] [place] [address], [place], [address], 06/07/2023 11:26:38 lipid panel, blood 2023 024 [facility], [address] [place] [address], [place], [address], 03/13/2023 14:31:15 hemoglobi n A1c, QN, blood 2023 024 [facility], [address] [place] [address], [address], 03/13/2023 14:31:14 microalbu min, urine 2023 [facility], [address] [place] [address], [address], 03/13/2023 14:31:14 CBC w/ auto diff 2023 024 [facility], [address] [place] [address], [address], 03/13/2023 14:31:15 CMP, serum or plasma 2023 024 [facility], [address] [place] [address], [address], 06/07/2023 11:26:38 HbA1c (hemoglob in A1c), blood 2023 024 [facility], [address] [place] [address], [address], 09/05/2023 11:22:32 CMP, serum or plasma 2023 024 [facility], [address] [place] [address], [address], 09/05/2023 11:22:33 lipid panel, blood 2023 024 [facility], [address] [place] [address], [address], 06/15/2023 14:54:59 CBC w/ auto diff 2023 024 [facility], [address] [place] [address], [address], 06/15/2023 14:54:59 HbA1c (hemoglob in A1c), blood 2023 024 [facility], [address] [place] [address], [address], 12/13/2023 11:32:17 CMP, serum or plasma 2023 024 [facility], [address] [place] [address], [address], 12/13/2023 11:32:17 CMP, serum or plasma 2023 024 [facility], [address] [place] [address], [address], 12/13/2023 11:32:17 HbA1c (hemoglob in A1c), blood 2023 024 [facility], [address] [place] [address], [address], 12/13/2023 11:32:17 Referral None recorded. Procedures None recorded. Surgeries None recorded. Imaging XR, lumbosacr al spine, 2 or 3 view 2023 024 [facility], [address] [place] [address], [address], 03/19/2023 17:04:12 Medication Orders tramadol 50 mg tablet 2022 023 [facility]/Pharmacy #2024, [address] [place], [address], 03/13/2023 14:25:47 tizanidin e 4 mg tablet 2022 023 [facility]armacy #2024, [address] [place], [address], 03/13/2023 14:25:50 clonazepa m 0.25 mg disintegr ating tablet 2022 023 [facility]/Pharmacy #5, [address] [place], [address], 12/12/2022 14:45:12 glipizide ER 5 mg tablet, extended release 24 hr 2023 024 [facility]/Pharmacy #2024, [address] [place], [address], 03/13/2023 14:25:41 clonazepa m 0.25 mg disintegr ating tablet 2023 024 [facility] [address] [place], [address], 09/12/2023 13:31:20 varenicli ne tartrate 1 mg tablet 2023 024 [facility], [address] [place], [address], 12/24/2023 10:57:52 varenicli ne tartrate 0.5 mg (11)-1 mg (42) tablets in a dose pack 2023 024 [facility], [address] [place], [address], 12/18/2023 14:35:17 Patient TargetsNo targets recorded. Patient InstructionsNo instructions recorded. Reason for Referral None Reported. Results Created Date Observation Date Name Description Value Unit Range Abnormal Flag Note LastModifiedBy Organization Detail LastModifiedTime 12/31/1912/12/2022 MAMMO , scree cassy, digit al, bilat eral No observ ation record ed. [facility] [address] [place] [address] [place], [address], 01/01/2023 08:44:14 03/19/1903/16/2023 XR, lumbo sacra l spine , 2 or 3 view No observ ation record ed. [facility] (Medical Records) [address], [place], [address], 03/20/2023 09:51:34 04/05/19 24 04/04/2023 MRI, lumba r spine , w/o contr ast No observ ation record ed. [email or web address] [facility] (Medical Records) [address], [place], [address], 04/23/2023 11:29:06 12/25/19 24 12/17/2023 MAMMO , scree cassy, digit al, bilat eral No observ ation record ed. [email or web address] Not Available 2023 14:37:55 Result Notes None recorded. Problems Name Problem SNOMED Code Status Onset Date Resolution Date Notes Provider Name and Address Organization Details Recorded Time Constipa tion 25477975 Active 2021 Not Available [facility] 3 03:04:48 Divertic ulitis of colon 513142128 Active 2021 clindamyc in works the best bactrim is not effective DESHAUN MONGE [address] [place], [address], [facility] 3 16:50:19 Fatigue 29313765 Active 2022 Not Available [facility] 3 03:04:48 Low back pain 288182416 Active 2022 DESHAUN MONGE [address] [place], [address], [facility] 3 14:43:37 Degenera tion of lumbar interver tebral disc 79858826 Active 2023 DESHAUN MONGE [address] [place], [address], [facility] 4 14:22:08 Smoker 73814418 Active 2023 DESHAUN MONGE [address] [place], [address], [facility] 4 14:30:50 Type 2 diabetes mellitus 15130135 Active 2017 [facility] 11:55:58 Anxiety 87322879 Active 2017 Anjelica garnett [facility] 4 11:55:58 Hypercho lesterol emia 36878310 Active 2017 Anjelica Jos garnett [facility] ([facility]3][facility] 4 11:55:58 Subclavi an steal syndrome 09945752 Active 2017 2017 Not Available [facility] 01:17:34 Problem Notes None recorded. Procedures Surgical History None recorded. Imaging Results Imaging Date Name Status LastModified by Organiz ation Details LastModified Time 12/12/2022 MAMMO, screening, digital, bilateral completed [email or web address] [facility] [address] [place] [address] [place], [address], 01/01/2023 08:44:14 03/16/2023 XR, lumbosacral spine, 2 or 3 view completed [email or web address] [facility] (Medical Records) [address] [place], [address], 03/20/2023 09:51:34 04/04/2023 MRI, lumbar spine, w/o contrast completed [email or web address] [facility] (Medical Records) [address] [place], [address], 04/23/2023 11:29:06 12/17/2023 MAMMO, screening, digital, bilateral completed [email or web address] Information not available 12/25/2023 14:37:55 Procedure Notes None recorded. Medical Equipment None Reported. Allergies Allergen ID Allergen Name Allergen Category Reaction Reaction Severity Criticality Documentation Date Start Date Code Code System Note Provider Name and Address Organization Details Recorded Time 135 amoxicill in medicatio n Not available Not available Not available 04/20/2017 723 RxNorm ANÍBAL [facility] 8 14:51:12 6230 levofloxa carlo medicatio n Not available Not available Not available 02/03/2022 07215 RxNorm DESHAUN MONGE [address] [place], [address], [facility] 14:23:49 6231 metronida zole medicatio n Not available Not available Not available 02/03/2022 6922 RxNorm DESHAUN MONGE [address] [place], [address], [facility] 2 14:24:03 Medications Name Sig Start Date Stop Date Status Note LastModified by Organization Details LastModified Time freestyle lyla lite 12/14 completed Not Available Not Available Not Available cyclobenzap rine 10 mg tablet 09/26 completed Not Available Not Available Not Available metformin 500 mg tablet TAKE 1 TABLET TWICE A DAY BY ORAL ROUTE FOR 90 DAYS. active Not Available Not Available No t Available clindamycin HCl 300 mg capsule TAKE 1 CAPSULE BY MOUTH THREE TIMES A DAY 09/04 completed Not Available Not Available Not Available azithromyci n 250 mg tablet TAKE 2 TABLETS (500 MG) BY ORAL ROUTE ONCE DAILY FOR 1 DAY THEN 1 TABLET (250 MG) BY ORAL ROUTE ONCE DAILY FOR 4 DAYS 12/21 completed Not Available Not Available Not Available tizanidine 4 mg tablet TAKE 1 TABLET BY MOUTH EVERY 6 HOURS NEEDED FOR 10 DAYS 03/13 completed Not Available Not Available Not Available meloxicam 15 mg tablet TAKE 1 TABLET BY MOUTH DAILY FOR PAIN active Not Available Not Available No t Available prednisone 20 mg tablet TAKE 1 TABLET BY MOUTH EVERY DAY FOR 4 DAYS 02/03 completed Not Available Not Available Not Available glipizide ER 5 mg tablet, extended release 24 hr TAKE 1 TABLET EVERY DAY BY ORAL ROUTE DIRECTED FOR 90 DAYS, FOR T2DM. active Not Available Not Available No t Available metronidazo le 500 mg tablet 02/03 completed Not Available Not Available Not Available sulfamethox azole 800 mg-trimetho prim 160 mg tablet TAKE 1 TABLET BY MOUTH EVERY 12 HOURS FOR 10 DAYS 09/04 completed Not Available Not Available Not Available tramadol 50 mg tablet TAKE 1 TABLET BY MOUTH EVERY 6 HOURS NEEDED FOR 7 DAYS 03/13 completed Not Available Not Available Not Available aspirin 325 mg tablet,yehuda yed release TAKE 1 TABLET BY MOUTH EVERY DAY STARTING THE DAY AFTER SURGERY 11/01 completed Not Available Not Available Not Available simvastatin 20 mg tablet TAKE 1 TABLET BY MOUTH EVERY DAY active Not Available Not Available No t Available codeine 10 mg-guaifene sin 100 mg/5 mL oral liquid 05/29 completed Not Available Not Available Not Available lorazepam 1 mg tablet TAKE 1-2 TABLETS BY MOUTH FOR PROCEDURE active Not Available Not Available No t Available levofloxaci n 750 mg tablet 02/03 completed Not Available Not Available Not Available ondansetron 4 mg disintegrat ing tablet 02/03 completed Not Available Not Available Not Available metformin ER 500 mg tablet,exte nded release 24 hr TAKE 1 TABLET BY MOUTH EVERY DAY 09/04 completed Not Available Not Available Not Available naproxen 500 mg tablet 1 po BID prn with food 09/26 completed Not Available Not Available Not Available magnesium 250 mg (as magnesium oxide) tablet Take 1 tablet every day by oral route. 09/04 completed OTC Not Available Not Available Not Available oxycodone 5 mg tablet TAKE 1 TABLET BY MOUTH EVERY 4 TO 6 HOURS NEEDED FOR PAIN; (DO NOT DRIVE WHILE ON THIS MEDICATIO N) 11/01 completed Not Available Not Available Not Available neomycin-po lymyxin-hyd rocort 3.5 mg-10,000 unit/mL-1 % ear drops,susp INSTILL 4 DROPS INTO AFFECTED EAR(S) BY OTIC ROUTE 3 TIMES PER DAY 02/03 completed Not Available Not Available Not Available clonazepam 0.25 mg disintegrat ing tablet DISSOLVE 1 TABLET BY MOUTH TWICE A DAY NEEDED active Not Available Not Available No t Available lactulose 10 gram/15 mL oral solution TAKE 15 ML EVERY DAY BY ORAL ROUTE NEEDED FOR 7 DAYS. 02/03 completed Not Available Not Available Not Available magnesium 09/11 completed Not Available Not Available Not Available sodium fluoride 1.1 % dental paste BRUSH YOUR TEETH 4 TIMES A DAY USING TOOTHPAST E 09/11 completed Not Available Not Available Not Available varenicline tartrate 0.5 mg (11)-1 mg (42) tablets in a dose pack TAKE DIRECTED PER PACKAGE active Not Available Not Available No t Available FreeStyle Lite Strips TEST GLUCOSE LEVEL BID 09/04 completed Not Available Not Available Not Available cholecalcif nomi (vitamin D3) 1,250 mcg (50,000 unit) capsule TAKE ONE CAPSULE BY MOUTH ONE TIME PER WEEK active Not Available Not Available No t Available GaviLyte-G 236 gram-22.74 gram-6.74 gram-5.86 gram oral solution PLEASE SEE ATTACHED FOR DETAILED DIRECTION S 09/04 completed Not Available Not Available Not Available Vitamin D3 50 mcg (2,000 unit) capsule Take 1 capsule every day by oral route. active Not Available Not Available No t Available Chantix Continuing Month Box 1 mg tablet TAKE 1 TABLET BY MOUTH TWICE A DAY 02/03 completed Not Available Not Available Not Available Vicodin ES 7.5 mg-300 mg tablet Take 1 tablet 3 times a day by oral route as needed. 09/26 completed Not Available Not Available Not Available Fluarix Quad (PF) 60 mcg (15 mcg x 4)/0.5 mL IM syringe 05/29 completed Not Available Not Available Not Available Flucelvax Quad (PF) 60 mcg (15 mcg x 4)/0.5 mL IM syringe 12/14 completed Not Available Not Available Not Available Afluria Qd 2018- (36 mos up)(PF)60 mcg (15 mcg x4)/0.5 mL IM syringe 12/14 completed Not Available Not Available Not Available Fluarix Quad (PF) 60 mcg (15 mcg x 4)/0.5 mL IM syringe 12/14 completed Not Available Not Available Not Available BinaxNOW COVID-19 Ag Self Test kit TEST DIRECTED TODAY 05/05 completed Not Available Not Available Not Available Vitals Date Recorded Body height Body mass index (BMI) Body weight Heart rate Oxygen saturation Oxygen saturation in Arterial blood by Pulse oximetry Systolic blood pressure Diastolic blood pressure Provider Name and Address Organization Details Last Updated DateTime 3 158.75 cm 29.5 kg/m2 57634.0 7 g 73 /min 96 % 96 % 138 mm[Hg] 78 mm[Hg] Ritika [facility] 3 14:41:29 Date Recorded Body height Body mass index (BMI) Body weight Heart rate Respiratory rate Oxygen saturation Oxygen saturation in Arterial blood by Pulse oximetry Systolic blood pressure Diastolic blood pressure Provider Name and Address Organization Details Last Updated DateTime 4 158.75 cm 27.3 kg/m2 07618.2 4 g 74 /min 16 /min 98 % 98 % 130 mm[Hg] 72 mm[Hg] Cecilio Richards [facility] 4 14:30:53 Date Recorded Body height Body mass index (BMI) Body weight Heart rate Oxygen saturation Oxygen saturation in Arterial blood by Pulse oximetry Systolic blood pressure Diastolic blood pressure Provider Name and Address Organization Details Last Updated DateTime 4 158.75 cm 27 kg/m2 67732.8 6 g 102 /min 97 % 97 % 126 mm[Hg] 70 mm[Hg] Cecilio Richards [facility] 4 13:26:38 Date Recorded Body height Body mass index (BMI) Body weight Heart rate Oxygen saturation Oxygen saturation in Arterial blood by Pulse oximetry Systolic blood pressure Diastolic blood pressure Provider Name and Address Organization Details Last Updated DateTime 4 158.75 cm 28.7 kg/m2 43804.2 6 g 101 /min 97 % 97 % 156 mm[Hg] 80 mm[Hg] Anjelica Jos [facility] 4 14:11:05 Social History Question Answer Notes LastModified by Terranova ion Details LastModified Time Tobacco Smoking Status Former Smoker Quite a year and a half ago as of 05/02/2021 1 Pack Around 09/03/23 Cecilio garnett [facility] 09/12/2023 13:25:37 What Was The Date Of Your Most Recent Tobacco Screening? 12/18/2023 [email or web address] Information not available 12/18/2023 Sex: Unknown Functional Status None recorded. Mental Status None recorded. Family History Relationship Description Onset Age of this Age Resolved Age Notes LastModified by Organization Details LastModified Time Father No current problems or disability [email or web address] Not available 09/04 16:42:07 Mother No current problems or disability [email or web address] Not available 09/04 16:42:07 Medical History Condition Response Coronary Artery Disease N Gout N Other N Kidney Stones N Blood Diseases N Blood Transfusion N Breast Cancer N COPD N Depression N Lung Disease N Defects or Inherited Disease N Anxiety Disorder N Muscle, Joint, or Bone Problems N Obesity N Vision or Eye Problems N Arthritis N Infertility N Polyps N Mental Disorder N Cancer N Stroke N Varicosities N Endometriosis N Bladder or Kidney Problems N High Cholesterol N Liver Disease N Fibromyalgia N Headaches N Kidney Disease N Allergies/Hayfever N Heart Problems N Hospitalizations N Thyroid Problems N GI Problems N Eating Disorder N Skin Problems N Anemia N MRSA exposure N Constipation N Mental Illness N Diabetes N Ovarian Cancer N Seizures/Epilepsy N Tuberculosis N Congestive Heart Failure (CHF) N Eczema N Abuse/Domestic Violence N Diverticulitis N Asthma N Reflux/GERD N Hepatitis N Heart Disease N Pulmonary Embolism N Hypertension N Chicken Pox N Autism Spectrum Disorder (ASD) N Osteoporosis N Gynecological HistoryNo gynecological history recorded. Obstetrics History GPAL:G 0 P 0 0 0 0 Immunizations Vaccine Type Date Status Note Provider Nam e and Address Organization Details Recorded Time COVID-19, mRNA, LNP-S, PF, 30 mcg/0.3 mL dose 1 completed Jessica garnett [facility] 03/13/2023 08:16:13 Influenza, split virus, quadrivalent, preservative 8 completed Jessica garnett [facility] 03/13/2023 08:16:13 COVID-19, mRNA, LNP-S, PF, 30 mcg/0.3 mL dose 2 completed Jessica garnett [facility] 03/13/2023 08:16:13 influenza nasal, unspecified formulation 2 completed Jessica garnett [facility] 03/13/2023 08:16:13 Influenza, split virus, quadrivalent, preservative 0 completed Jessica garnett [facility] 03/13/2023 08:16:13 Tdap 5 completed Not Available [facility] 06/17/2022 03:04:48 COVID-19, mRNA, LNP-S, PF, 30 mcg/0.3 mL dose 1 completed Jessica garnett [facility] 03/13/2023 08:16:13 COVID-19, mRNA, LNP-S, PF, 30 mcg/0.3 mL dose 1 completed Jessica garnett [facility] 03/13/2023 08:16:13 Past Encounters Encounter ID Performer Location Encounter Start Date Encounter Closed Date Diagnosis/Indication Diagnosis SNOMED-CT Code Diagnosis ICD10 Code Diagnosis Note [id number] Anna Morales NP, [facility] [address] [facility],[place] [address] 05/29/2017 13:34:22 05/30/2017 08:08:08 Type 2 diabetes mellitus 14553397 E11.9 follow Subclavian steal syndrome 47099805 G45.8 up to date with vascular, Dr. Wayne murphy anxiety disorder 54677255 F41.1 stable, rare lorazepam Hypercholesterolemia 136 76349 E78.00 check profile prior to next visit Low back pain 077834625 M54.5 discuss core strengthen ing exercises [id number] Anna Morales NP, [facility] [address],[place] [address] 08/20/2017 10:55:37 08/20/2017 11:57:05 Acute low back pain 505436668 M54.5 Hypercholesterolemia 136 13038 E78.00 check profile prior to next visit [id number] Anna Morales NP, [facility] [address],[place] [address] 09/26/2017 13:28:05 09/28/2017 11:32:36 Hypercholesterolemia 89134723 E78.00 Type 2 serge betes mellitus 18687196 E11.9 follow Screening procedure 2012 5006 Z13.9 Anxiety 10887310 F41.9 Tobacco de pendence syndrome 35924343 F17.200 Body mass index 25-29 - overweight 322851440 Z68.27 [id number] Anna Morales NP, [facility] [address] [place] [address] 05/31/2018 13:24:04 05/31/2018 15:45:43 Hypercholesterolemia 47983652 E78.00 Type 2 serge betes mellitus 23730542 E11.9 follow A1C 6.8 Subclavian steal syndrome 63154945 G45.8 schedule appt w/ vascular, Dr. Black Pain in left knee 249781 7306 93972 M25.562 has f/u NEOS 6 weeks [id number] Anna Morales NP, [facility] [address] [facility],[place] [address] 01/28/2018 13:47:20 01/28/2018 16:59:02 Vitamin D deficiency 39082230 E55.9 Hypercholesterolemia 136 68561 E78.00 stable Subclavian steal syndrome 41891412 G45.8 up to date with vascular, Dr. Black Type 2 serge betes mellitus 79437713 E11.9 follow A1C remains 6.6 Tobacco de pendence syndrome 70077655 F17.200 using chantix, continue with 100% cessation [id number] Anna Morales NP, [facility] [address], [facility] [place] [address] 05/21/2018 15:41:46 05/21/2018 16:27:00 Sprain of medial collateral ligament of knee 15707895 S83.412A On examina tion - cardiac murmur 593771091 R01.1 Hypercholesterolemia 136 05946 E78.00 stable Type 2 serge betes mellitus 07208337 E11.9 follow A1C remains 6.[id number] [facility] [address] [facility],[place] [address] 10/01/2018 13:25:32 10/01/2018 13:57:09 Type 2 diabetes mellitus 53424760 E11.9 Anxiety 35471172 F41.9 Hypercholesterolemia 136 55027 E78.00 Pain in right foot 58513 77690 35290 M79.671 unclear etiology [id number] [facility] [address],[place] [address] 11/12/2018 14:02:26 11/12/2018 14:42:29 Type 2 diabetes mellitus 21409828 E11.9 well controlled with just diet/exerc ise Anxiety 98014647 F41.9 clonazepam for anxiety, goes through about 30 in a year Hypercholesterolemia 136 58750 E78.00 well controlled with simvastati n Pain in right foot 51471 02297 52719 M79.671 unclear etiology Old tear o f meniscus of knee 034115958 M23.209 Chronic ankle pain 56354 99658 9109 M25.579 [id number] DESHAUN MONGE [facility] [address] [facility],[place] [address] 08/01/2019 13:58:27 08/01/2019 14:37:09 Subclavian steal syndrome 56005366 G45.8 if it has progressed , will need to schedule her with vascular surgeon/ca rdiologist Adult heal th examination 516337555 Z00.00 no other concerns today will watch BP > was told her BP is true in her left arm but can never get a read will disregard for now Tobacco de pendence syndrome 83023153 F17.200 will try chantix again when she feels ready did offer wellbutrin as an option but the patient declined [id number] DESHAUN MONGE [facility] [address] [place] [address],[place] [address] 12/15/2019 11:27:45 12/15/2019 11:57:31 Acute otitis media 5963364 H65.02 will treat with abx as well as OTC antihistam ine for the fluid build up in her ear will call on sunday to see if improvemen t, if no improvemen t will do fu Anxiety 65658465 F41.9 stable [id number] DESHAUN MONGE [facility] [address] [place] [address],[place] [address] 12/22/2019 16:08:00 12/22/2019 16:31:59 Serous otitis media 67838395 H65.02 will give the abx/sterio d drop the patient for patient would like her to use for the steriod component of the drop and continue to use the antihistam ine as well call with update Anxiety 48856245 F41.9 stable [id number] DESHAUN MONGE [facility] [address] [facility],[place] [address] 02/04/2020 08:16:55 02/04/2020 16:08:32 Anxiety 62067510 F41.9 stable Type 2 serge betes mellitus 34034610 E11.9 waiting on the to come in will call her when it comes it to go over with the patient [id number] DESHAUN MONGE [facility] [address] [facility] [address],[place] [address] 08/04/2020 13:24:04 08/04/2020 16:04:14 Type 2 diabetes mellitus 33146976 E11.9 will start on medication and fu with recheck lab and appt in 3 mo Hypercholesterolemia 136 58445 E78.2 stable Tear of me niscus of knee 820786973 S83.207D will refer out [id number] DESHAUN MONGE [facility] [address] [place] [address], [place] [place] [address] 11/08/2020 08:27:57 11/09/2020 11:53:28 Anxiety [id number] F41.1 stableneed s refill Type 2 serge betes mellitus 20121742 E11.9 A1c is down with medication and diet changeswil l continue at same dosagefu check 3 mo [id number] DESHAUN MONGE [facility] [address] [place] [address], [place] [address] 02/04/2021 08:35:12 02/04/2021 16:24:06 Anxiety 76686387 F41.1 stable Hypercholesterolemia 136 91078 E78.2 stable Type 2 serge betes mellitus 87372902 E11.9 A1c is down with medication and diet changeswil l continue at same dosagefu check 3 mo Subclavian steal syndrome 09997527 G45.8 stable [id number] DESHAUN MONGE [facility] [address] [facility] [address] 05/02/2021 09:23:24 05/03/2021 11:09:15 Type 2 diabetes mellitus 16364876 E11.9 stable Hypercholesterolemia 136 41295 E78.2 stable Anxiety 17869145 F41.1 stable Ganglion c yst of left foot [id number] 831717 M67.472 will set up with NEOS [id number] DESHAUN MONGE [facility] [address] [place] [address],[place] [address] 08/09/2021 08:46:02 08/12/2021 09:26:15 Pre-surgery evaluation [id number] Z01.818 The patient was seen in the office today for pre-op evaluation . All medical conditions on patient's problem list were addressed and are currently stable, no interventi on needed at this time. Based on history and physical performed, the patient is cleared for surgery. Type 2 serge betes mellitus 19593737 E11.9 stable, last recheck 07/29/21 Subclavian steal syndrome 26566678 G45.8 stable, no change since initial diagnosis in 2016 [id number] DESHAUN MONGE [facility] [address] [facility] [address] [address] 11/01/2021 13:37:14 11/01/2021 15:56:38 Type 2 diabetes mellitus 09591729 E11.9 stable, last recheck 07/29/21 Hypercholesterolemia 136 21260 E78.2 stable Anxiety 64370422 F41.1 stable [id number] DESHAUN MONGE [facility] [address] [facility], [facility] [facility] [place] [address] 11/16/2021 09:08:36 11/16/2021 09:34:36 Constipation 67508215 K59.00 will continue stool softener and lactulose Diverticul itis of colon 304748692 K57.32 the patient will be seeing gastroente rology [id number] DESHAUN MONGE [facility] [address] [facility], [place] [facility] [place] [address] 02/03/2022 14:08:55 02/03/2022 16:12:57 Type 2 diabetes mellitus 74361987 E11.9 stable, last recheck 07/29/21 Active or passive immunization 464478973 Z23 patient advised she is due for flu shot, pneu 23 & shingles Hypercholesterolemia 136 15367 E78.2 [facility] period Anxiety 69766071 F41.1 stableuses klonapin sparingly [id number] DESHAUN MONGE [facility] [address] [facility] [address],[place] [address] 05/05/2022 14:05:49 05/05/2022 16:29:37 Type 2 diabetes mellitus 04880445 E11.9 increase her metformin to BID; [facility] for a recheck Fatigue 78820080 R53.83 will set up lab-work [id number] DESHAUN MONGE [facility] [address] [facility] [address],[place] [address] 09/04/2022 15:47:50 09/05/2022 08:40:05 Active or passive immunization 620559457 Z23 patient advised she is due for flu shot, pneu 23 & shingles Adult heal th examination 934693884 Z00.00 no other concerns today will watch BP > was told her BP is true in her left arm but can never get a read will disregard for now Hypercholesterolemia 136 08800 E78.2 bw is stable Type 2 serge betes mellitus 39251984 E11.9 increase her metformin to BID; her A1c is up to 7.9% fromwill fu with patient in three months for a recheck Anxiety 90092597 F41.1 stableuses klonapin sparingly [id number] DESHAUN MONGE [facility] [address] [facility] [address],[place] [address] 12/12/2022 14:24:29 12/12/2022 15:14:57 Hypercholesterolemia 02470775 E78.2 stable Type 2 serge betes mellitus 74976092 E11.9 A1c is up to 7.7% Low back pain 969057768 M54.59 will start her on tramadol and tizanidine Anxiety 78169324 F41.1 stableuses klonapin sparingly [id number] DESHAUN MONGE [facility] [address] [facility],[place] [address] 03/13/2023 08:15:56 03/13/2023 14:35:04 Type 2 diabetes mellitus 76753178 E11.9 start glipizide Degenerati on of lumbar intervertebral disc 50622419 M51.36 will set up with XR lumbar spinewill need MRI for continous pain and no improvemen t with conservati ve therapy [id number] DESHAUN MONGE [facility] [address] [facility] [address] [facility],[place] [address] 06/15/2023 14:21:00 06/15/2023 15:03:58 Type 2 diabetes mellitus 24700652 E11.9 doing much better Hypercholesterolemia 136 88484 E78.2 stable Low back pain 167560297 M54.59 stable [id number] DESHAUN MONGE [facility] [address] [facility] [address] [facility],[place] [address] 09/12/2023 13:22:13 09/14/2023 12:15:39 Depression screening 587721378 Z13.31 negative Anxiety 23725489 F41.1 stableuses Klonapin sparingly Type 2 serge betes mellitus 50467947 E11.9 doing much better Hypercholesterolemia 136 92517 E78.2 stable [id number] DESHAUN MONGE [facility] [address] [facility] [address],[place] [address] 12/18/2023 14:04:56 12/18/2023 16:38:40 Smoker 53747070 F17.200 starting on the vareniclin e starter arcenio for patient with instructio ns Type 2 serge betes mellitus 51618844 E11.9 still good despite dietary changesshiva mayen work on getting her quitting smoking and following her diet Health Concerns Section Related Observation LastModified by Organization Detai ls LastModified Time None Recorded Concern Status LastModified by Organization Details LastModified Time None Recorded Advance Directives Directive None Recorded Payers Encounter Date Sequence Insurance Name Policy Number Policy Severino Covered Member ID Severino Member ID Guarantor Name 12/12/2022 1 [facility] [id number] Dashawn Jimenez [id number] Bryant Jimenez 03/13/[address] [place] [address] [id number] Dashawn Jimenez [id number] Loraamatthew Jimenez 06/15/2023 1 [facility] [id number] Dashawn Jimenez [id number] Loraajane Jimenez 09/12/2023 [facility] [id number] Dashawn Jimenez [id number] Loraajane Jimenez 12/18/2023 [facility] [id number] Dashawn Jimenez [id number] Bryant Jimenez Notes Date Note Type Note Provider Name a nd Address Organization Details Recorded Time 3 text/html 3 mos fu HLD: stablerecent BW good T2DM: agreed to try dietary changes firstknows her A1c is up will work on thatno adjustments today anxiety: stableneeds yearly refill of klonaDESHAUN Rivera [address] [place], [address], [facility] 12/12/2022 14:51:24 4 text/html 3 mos f/u The patient is participating in this appointment via telemedicine communication with a phone call/video calling service (Smeet)The patient consents to use of these platforms in place of an in-person appointment due to either sick symptoms the patient is presenting with or current office closure due to COVID exposure in order to keep our office staff and patients safe the patient is getting low back pain again, lower left sidecauses leg weaknesspatient reports it radiates into the hipthe patient reports it that the pain is 6-7/10 at worse and at rest it is constant 3/10 without flare updenies numbness or tingling in the footdenies drop foot sensationdoes get some weakness in her left legworse with picking up/bending overworse with getting up from prolonged sitting or standingpain with laying on the left side at night will fu after XR lumbar spine A1c is still staying at 7.7will add glipizide to current medications since she is fine with the dose of metformin now but it has caused her gastro distress in the past pt agreesstanding orders filed for the year DESHAUN MONGE [address] [place], [address], [facility] 03/13/2023 14:31:44 4 text/html f/u T2DM T2DM: Patient is a well-appearing 62 year old male/female who presents for followup on well controlled type 2 diabetesher A1c is 6.8% which is well controlledfeels good as well Low back pain: stable; has resolved on its owndoes have PT in a f/u with ortho in August HLD: excellent stable DESHAUN MONGE [address] [place], [address], [facility] 06/15/2023 14:55:59 4 text/html f/u medication anxiety: the patient is a little more anxious due to the circumstances with her sister who has dementia T2DM: the patient's A1c 6.0% which is excellentthe patient is down from the 6.9% they are all doing well low back pain: seeing PT and PSS, may be getting an injectionthe patient will discuss with them about treatment going forward fatigue: stable, more stress related her sister DESHAUN MONGE [address] [place], [address], [facility] 09/12/2023 13:42:51 4 text/html 3 mos f/u Patient presents today for follow-up for Type 2 Diabetes Recent lab showed an A1c of 6.5% which is still gooddoes admit to starting smoking again and eating poorly due to the stress relatedher sister had severe dementia but has been placed in a home to take care which has helped The patient has been compliant with medications as prescribedThe complications patient is experiencing are general fatigue, working on diet againThe patient has current concerns about related to their diabetes diagnosisThe patient has been compliant with lifestyle changes including dietary changes, exercise and healthy habits Discussion about feet reveals normal examDiscussion about eyes reveal exam Treatment plan going forward is will is to continue medswork on diet and exercise plan smoking again after 3 years due to stresswill try the varenicline again DESHAUN MONGE [address] [place], [address], [facility] 12/18/2023 14:45:51 OBGyn Episode No OBEpisode recorded.
== END 2024-03-14 11:56 | disposition home or self-care (01) ==
LOC: HO.10HDL 11:55
PROVIDERS: Visit Provider Physician Assistant
DX: E11.9 Type 2 diabetes mellitus without complications (principal)
CPT/HCPCS: 36415; 83036

== ENCOUNTER 2024-06-10 09:29 | Outpatient (REF) | payer OTHER, SELFPAY ==
--- OUTSIDE RECORDS SUMMARY | 2024-06-10 10:24 | XMS_ITS | Data Portability ---
Author Organization [facility] Home Service Address [address] [place] [address] Assessment Encounter Date Assessment Date Assessment LastModified [...] Time Details Appointments FOLLOW UP 15 2024 02:15P DESHAUN BOYCE Not available Not available Not available Lab CMP, serum or plasma 2024 025 [facility], [address] [place] [address], [place], [address], 03/21/2024 13:54:31 hemoglobi n A1c, QN, blood 2024 025 [facility], [address] [place] [address], [place], [address], 03/21/2024 13:54:31 CBC w/ auto diff 2024 025 [facility], [address] [place] [address], [id number], 03/21/2024 13:54:31 lipid panel, blood 2024 025 [facility], [address] [place] [address], [id number], 03/21/2024 13:54:31 HbA1c (hemoglob in A1c), blood 2023 024 [facility], [address] [place] [address], [address], 09/05/2023 11:22:32 CMP, serum or plasma 2023 024 [facility], [address] [place] [address], [id number], 09/05/2023 11:22:33 lipid panel, blood 2023 024 [facility], [address] [place] [address], [address], 06/15/2023 14:54:59 CBC w/ auto diff 2023 024 [facility], [address] [place] [address], [id number], 06/15/2023 14:54:59 HbA1c (hemoglob in A1c), blood 2023 024 [facility], [address] [place] [address], [address], 12/13/2023 11:32:17 CMP, serum or plasma 2023 024 [facility], [address] [place] [address], [address], 12/13/2023 11:32:17 CMP, serum or plasma 2023 024 [facility], [address] [place] [address], [address], 12/13/2023 11:32:17 HbA1c (hemoglob in A1c), blood 2023 024 [facility], [address] [place] [address], [id number], 03/17/2024 12:42:41 HbA1c (hemoglob in A1c), blood 2024 025 [facility], [address] [place] [address], [address], 03/17/2024 12:42:41 CMP, serum or plasma 2023 024 [facility], [address] [place] [address], [address], 06/07/2023 11:26:38 lipid panel, blood 2023 024 [facility], [address] [place] [address], [address], 03/13/2023 14:31:15 hemoglobi n A1c, QN, blood 2023 024 [facility], [address] [place] [address], [address], 03/13/2023 14:31:14 microalbu min, urine 2023 024 [facility], [address] [place] [address], [address], 03/13/2023 14:31:14 CBC w/ auto diff 2023 024 [facility], [address] [place] [address], [address], 03/13/2023 14:31:15 CMP, serum or plasma 2023 024 [facility], [address] [place] [address], [place], [address], 06/07/2023 11:26:38 Referral None recorded. Procedures None recorded. Surgeries None recorded. Imaging XR, lumbosacr al spine, 2 or 3 view 2023 024 [facility] Central Scheduling, [address] [place] [address], [id number], 03/19/2023 17:04:12 Medication Orders varenicli ne tartrate 1 mg tablet 2024 025 [facility] [address] [place] [address], [id number], 03/21/2024 13:46:35 varenicli ne tartrate 1 mg tablet 2023 024 [facility], [address] [place] [address], [address], 12/24/2023 10:57:52 varenicli ne tartrate 0.5 mg (11)-1 mg (42) tablets in a dose pack 2023 024 [facility] [address] [place] [address], [address], 12/18/2023 14:35:17 clonazepa m 0.25 mg disintegr ating tablet 2023 024 [facility] [address] [place] [address], [address], 09/12/2023 13:31:20 glipizide ER 5 mg tablet, extended release 24 hr 2023 024 [facility] [address] [place] [address], [address], 03/13/2023 14:25:41 Patient TargetsNo targets recorded. Patient InstructionsNo instructions recorded. Reason for Referral None Reported. Results Created Date Observation Date Name Description Value Unit Range Abnormal Flag Note LastModifiedBy Organization Detail LastModifiedTime 03/19/19 24 03/16/2023 XR, lumbo sacra l spine , 2 or 3 view No observ ation record ed. [email or web address] [facility]) [address] [place], [address], 03/20/2023 09:51:34 04/05/19 24 04/04/2023 MRI, lumba r spine , w/o contr ast No observ ation record ed. [email or web address] [facility] ([facility] Records) [address] [place], [address], 04/23/2023 11:29:06 12/25/1912/17/2023 MAMMO , scree cassy, digit al, bilat eral No observ ation record ed. [email or web address] Not Available 2023 14:37:55 Result Notes None recorded. Problems Name Problem SNOMED Code Status Onset Date Resolution Date Notes Provider Name and Address Organization Details Recorded Time Constipa tion 19345645 Active 2021 Not Available [facility] 3 03:04:48 Divertic ulitis of colon 109149366 Active 2021 clindamyc in works the best bactrim is not effective DESHAUN MONGE [address] [place], [address], [facility] 3 16:50:19 Fatigue 03426189 Active 2022 Not Available [facility] 3 03:04:48 Low back pain 402719133 Active 2022 DESHAUN MONGE [address] [place], [address], [facility] 3 14:43:37 Degenera tion of lumbar interver tebral disc 03073511 Active 2023 DESHAUN MONGE [address] [place], [address], [facility] 4 14:22:08 Smoker 86497762 Active 2023 DESHAUN MONGE [address] [place], [address], [facility] 4 14:30:50 Type 2 diabetes mellitus 90490022 Active 2017 Anjelica garnett [facility] Internal [facility] 4 11:55:58 Anxiety 14862363 Active 2017 Anjelica garnett [facility] 4 11:55:58 Hypercho lesterol emia 79644064 Active 2017 Anjelica garnett [facility] 4 11:55:58 Subclavi an steal syndrome 18027490 Active 2017 2017 Not Available [facility] 01:17:34 Problem Notes None recorded. Procedures Surgical History None recorded. Imaging Results Imaging Date Name Status LastModified by Organiz ation Details LastModified Time 03/16/2023 XR, lumbosacral spine, 2 or 3 view completed [email or web address] [facility] ([facility]) [address] [place] [address], [address], 03/20/2023 09:51:34 04/04/2023 MRI, lumbar spine, w/o contrast completed [email or web address] [facility] (Medical Records) [address] [place] [address], [address], 04/23/2023 11:29:06 12/17/2023 MAMMO, screening, digital, bilateral completed [email or web address] Information not available 12/25/2023 14:37:55 Procedure Notes None recorded. Medical Equipment None Reported. Allergies Allergen ID Allergen Name Allergen Category Reaction Reaction Severity Criticality Documentation Date Start Date Code Code System Note Provider Name and Address Organization Details Recorded Time 135 amoxicill in medicatio n Not available Not available Not available 04/20/2017 723 RxNorm Cathy garnett [facility] 8 14:51:12 6230 levofloxa carlo medicatio n Not available Not available Not available 02/03/2022 89917 RxNorm DESHAUN MONGE [address] [place], [address], [facility] 2 14:23:49 6231 metronida zole medicatio n Not available Not available Not available 02/03/2022 6922 RxNorm DESHAUN MONGE [address] [place], [address], [facility] 2 14:24:03 Medications Name Sig Start Date Stop Date Status Note LastModified by Organization Details LastModified Time freestyle lyla lite 12/14 completed Not Available Not Available Not Available cyclobenzap rine 10 mg tablet 09/26 completed Not Available Not Available Not Available metformin 500 mg tablet TAKE 1 TABLET TWICE A DAY BY ORAL ROUTE FOR 90 DAYS. 2024 active Not Available Not Available Not Avai lable clindamycin HCl 300 mg capsule TAKE 1 [...] Available Not Available Not Available varenicline tartrate 1 mg tablet TAKE 1 TABLET BY MOUTH TWICE A DAY 2024 active Not Available Not Available Not Avai lable varenicline tartrate 0.5 mg (11)-1 mg (42) [...] Not Available Not Available No t Available Vicodin ES 7.5 mg-300 mg tablet Take 1 tablet 3 times a day by oral route as needed. 09/26 completed Not Available Not Available Not Available Fluarix Quad 9234-9649 (PF) 60 mcg (15 mcg x 4)/0.5 mL IM syringe 05/29 completed Not Available Not Available Not Available Flucelvax Quad (PF) 60 mcg (15 mcg x 4)/0.5 mL IM syringe 12/14 completed Not Available Not Available Not Available Afluria Qd (36 mos up)(PF)60 mcg (15 mcg x4)/0.5 [...] Updated DateTime 4 158.75 cm 27.3 kg/m2 63548.2 4 g 74 /min 16 /min 98 % 98 % 130 mm[Hg] 72 mm[Hg] [facility] 4 14:30:53 Date Recorded Body height Body mass index (BMI) Body weight Heart rate Oxygen saturation Oxygen saturation in Arterial blood by Pulse oximetry Systolic blood pressure Diastolic blood pressure Provider Name and Address Organization Details Last Updated DateTime 4 158.75 cm 27 kg/m2 52583.8 6 g 102 /min 97 % 97 % 126 mm[Hg] 70 mm[Hg] Cecilio Richards [facility] Internal [facility] 4 13:26:38 Date Recorded Body height Body mass index (BMI) Body weight Heart rate Oxygen saturation Oxygen saturation in Arterial blood by Pulse oximetry Systolic blood pressure Diastolic blood pressure Provider Name and Address Organization Details Last Updated DateTime 4 158.75 cm 28.7 kg/m2 23185.2 6 g 101 /min 97 % 97 % 156 mm[Hg] 80 mm[Hg] Anjelica Arguello [facility] Internal [facility] 4 14:11:05 Date Recorded Body height Body mass index (BMI) Body weight Heart rate Oxygen saturation Oxygen saturation in Arterial blood by Pulse oximetry Systolic blood pressure Diastolic blood pressure Provider Name and Address Organization Details Last Updated DateTime 5 158.75 cm 30.4 kg/m2 49413.3 9 g 106 /min 95 % 95 % 162 mm[Hg] 78 mm[Hg] Anjelica Arguello [facility] 5 13:37:05 Social History Question Answer Notes LastModified by Organizat ion Details LastModified Time Tobacco Smoking Status Former Smoker Quite a year and a half ago as of 05/02/2021 1 Pack Around 09/03/23 Cecilio Richards [facility] 09/12/2023 13:25:37 What Was The Date Of Your Most Recent Tobacco Screening? 03/21/2024 [email or web address] Information not available 03/21/2024 Sex: Unknown Functional Status None recorded. Mental [...] N Blood Transfusion N Breast Cancer N Lung Disease N Depression N COPD N Defects or Inherited Disease N Anxiety [...] mcg/0.3 mL dose 1 completed Jessica garnett [facility] 03/13/2023 08:16:13 Influenza, split virus, quadrivalent, preservative 8 [facility] 08:16:13 COVID-19, mRNA, LNP-S, PF, 30 mcg/0.3 mL dose 2 [facility] 03/13/2023 08:16:13 influenza nasal, unspecified formulation 2 completed Jessica garnett [facility] 03/13/2023 08:16:13 Influenza, split virus, quadrivalent, preservative 0 completed [facility] 03/13/2023 08:16:13 Tdap 5 completed Not Available [facility] 06/17/2022 03:04:48 COVID-19, mRNA, LNP-S, PF, 30 mcg/0.3 mL dose 1 completed Jessica garnett [facility] 03/13/2023 08:16:13 COVID-19, mRNA, LNP-S, PF, 30 mcg/0.3 mL dose 1 completed Jessica Maldonado [facility] 03/13/2023 08:16:13 Past Encounters Encounter ID Performer Location Encounter Start Date Encounter Closed Date Diagnosis/Indication Diagnosis SNOMED-CT Code Diagnosis ICD10 Code Diagnosis Note [id number] Anna Morales NP, [facility] Internal [facility] [address] [place] [address] 05/29/2017 13:34:22 05/30/2017 08:08:08 Type 2 diabetes mellitus 35576167 E11.9 follow Subclavian steal syndrome 21976631 G45.8 up to date with vascular, Dr. Wayne mcnamara anxiety disorder 94945623 F41.1 stable, rare lorazepam Hypercholesterolemia 136 87361 E78.00 check profile prior to next visit Low back pain 690898676 M54.5 discuss core strengthen ing exercises [id number] Anna Morales NP, [facility] [address] [place] [address] 08/20/2017 10:55:37 08/20/2017 11:57:05 Acute low back pain 988166955 M54.5 Hypercholesterolemia 136 76267 E78.00 check profile prior to next visit [id number] Anna Morales NP, [facility] [address] [facility] [address] [employer] [facility] [employer],[place] [address] 09/26/2017 13:28:05 09/28/2017 11:32:36 Hypercholesterolemia 70190317 E78.00 Type 2 serge betes mellitus 14675531 E11.9 follow Screening procedure 2012 5006 Z13.9 Anxiety 30587780 F41.9 Tobacco de pendence syndrome 59736736 F17.200 Body mass index 25-29 - overweight 635178497 Z68.27 [id number] Anna Morales NP, [address] [address] 05/31/2018 13:24:04 05/31/2018 15:45:43 Hypercholesterolemia 45708171 E78.00 Type 2 serge betes mellitus 65667668 E11.9 follow A1C 6.8 Subclavian steal syndrome 24918379 G45.8 schedule appt w/ vascular, Dr. Black Pain in left knee 864427 2765 26351 M25.562 has f/u NEOS 6 weeks [id number] Anna Morales NP, [facility] [address] [employer] [address] [employer] [address] 01/28/2018 13:47:20 01/28/2018 16:59:02 Vitamin D deficiency 20030236 E55.9 Hypercholesterolemia 136 88715 E78.00 stable Subclavian steal syndrome 45007138 G45.8 up to date with vascular, Dr. Black Type 2 serge betes mellitus 54529395 E11.9 follow A1C remains 6.6 Tobacco de pendence syndrome 72631027 F17.200 using chantix, continue with 100% cessation [id number] Anna Morales NP, [facility] [address] [employer] [address] [employer], [place] [address] 05/21/2018 15:41:46 05/21/2018 16:27:00 Sprain of medial collateral ligament of knee 07031764 S83.412A On examina tion - cardiac murmur 869237014 R01.1 Hypercholesterolemia 136 93263 E78.00 stable Type 2 serge betes mellitus 94219961 E11.9 follow A1C remains 6.6 [id number] [facility] [address] [employer] [address] [employer] [address] 10/01/2018 13:25:32 10/01/2018 13:57:09 Type 2 diabetes mellitus 78166190 E11.9 Anxiety 56636860 F41.9 Hypercholesterolemia 136 98535 E78.00 Pain in right foot 11590 30260 76526 M79.671 unclear etiology [id number] [facility] [address] [employer] [address] [employer], [place] [address] 11/12/2018 14:02:26 11/12/2018 14:42:29 Type 2 diabetes mellitus 66807503 E11.9 well controlled with just diet/exerc ise Anxiety 45680784 F41.9 clonazepam for anxiety, goes through about 30 in a year Hypercholesterolemia 136 55332 E78.00 well controlled with simvastati n Pain in right foot 29749 67161 25905 M79.671 unclear etiology Old tear o f meniscus of knee 704635024 M23.209 Chronic ankle pain 03129 10978 9109 M25.579 [id number] DESHAUN MONGE [facility] [address] [employer] [address] [employer],[place] [address] 08/01/2019 13:58:27 08/01/2019 14:37:09 Subclavian steal syndrome 24911013 G45.8 if it has progressed , will need to schedule her with vascular surgeon/ca rdiologist Adult [facility] th examination 986797341 Z00.00 no other concerns today will watch BP > was told her BP is true in her left arm but can never get a read will disregard for now Tobacco de pendence syndrome 18145834 F17.200 will try chantix again when she feels ready did offer wellbutrin as an option but the patient declined [id number] DESHAUN MONGE [facility] [address] [employer] [facility] [employer],[place] [address] 12/15/2019 11:27:45 12/15/2019 11:57:31 Acute otitis media 0817654 H65.02 will treat with abx as well as OTC antihistam ine for the fluid build up in her ear will call on sunday to see if improvemen t, if no improvemen t will do fu Anxiety 93646196 F41.9 stable [id number] DESHAUN MONGE [facility] [address] [employer] [facility] [employer],[place] [address] 12/22/2019 16:08:00 12/22/2019 16:31:59 Serous otitis media 07167803 H65.02 will give the abx/sterio d drop the patient for patient would like her to use for the steriod component of the drop and continue to use the antihistam ine as well call with update Anxiety 68646703 F41.9 stable [id number] DESHAUN MONGE [facility] [address] [employer] [facility] [employer],[place] [address] 02/04/2020 08:16:55 02/04/2020 16:08:32 Anxiety 00383849 F41.9 stable Type 2 serge betes mellitus 32687054 E11.9 waiting on the BW to come in will call her when it comes it to go over with the patient [id number] DESHAUN MONGE [facility] [address] [facility] [address],[place] [address] 08/04/2020 13:24:04 08/04/2020 16:04:14 Type 2 diabetes mellitus 71361947 E11.9 will start on medication and fu with recheck lab and appt in 3 mo Hypercholesterolemia 136 00827 E78.2 stable Tear of me niscus of knee 165115781 S83.207[place] [id number] DESHAUN MONGE [facility] [address] [facility] [address],[place] [address] 11/08/2020 08:27:57 11/09/2020 11:53:28 Anxiety 28806968 F41.1 stableneed s refill Type 2 serge betes mellitus 33510608 E11.9 A1c is down with medication and diet changeswil l continue at same dosagefu check 3 mo [id number] DESHAUN MONGE [facility] [address] [facility] [address],[place] [address] 02/04/2021 08:35:12 02/04/2021 16:24:06 Anxiety 37660421 F41.1 stable Hypercholesterolemia 136 82057 E78.2 stable Type 2 serge betes mellitus 35191218 E11.9 A1c is down with medication and diet changeswil l continue at same dosagefu check 3 mo Subclavian steal syndrome 63260359 G45.8 stable [id number] DESHAUN MONGE [facility] [address] [facility] [address],[place] [address] 05/02/2021 09:23:24 05/03/2021 11:09:15 Type 2 diabetes mellitus 03391025 E11.9 stable Hypercholesterolemia 136 28487 E78.2 stable Anxiety 67486419 F41.1 stable Ganglion c yst of left foot 5986195209 380608 M67.472 will set up with NEOS [id number] DESHAUN MONGE [facility] [address] [facility] [address],[place] [address] 08/09/2021 08:46:02 08/12/2021 09:26:15 Pre-surgery evaluation 541814348 Z01.818 The patient was seen in the office today for pre-op evaluation . All medical conditions on patient's problem list were addressed and are currently stable, no interventi on needed at this time. Based on history and physical performed, the patient is cleared for surgery. Type 2 serge betes mellitus 51916211 E11.9 stable, last recheck 07/29/21 Subclavian steal syndrome 15070188 G45.8 stable, no change since initial diagnosis in 2017 [id number] DESHAUN MONGE [facility] [address] [facility] [employer] [facility] [employer] [facility] [place] [address] 11/01/2021 13:37:14 11/01/2021 15:56:38 Type 2 diabetes mellitus 76713017 E11.9 stable, last recheck 07/29/21 Hypercholesterolemia 136 83904 E78.2 stable Anxiety 47131881 F41.1 stable [id number] DESHAUN MONGE [facility] [address] [facility] [employer] [facility] [employer] [facility] [place] [address] 11/16/2021 09:08:36 11/16/2021 09:34:36 Constipation 38676880 K59.00 will continue stool softener and lactulose Diverticul itis of colon 329185261 K57.32 the patient will be seeing gastroente rology [id number] DESHAUN MONGE [facility] [address] [employer] [place] [address] [facility] [place] [address] 02/03/2022 14:08:55 02/03/2022 16:12:57 Type 2 diabetes mellitus 23288834 E11.9 stable, last recheck 07/29/21 Active or passive immunization 383511585 Z23 patient advised she is due for flu shot, pneu 23 & shingles Hypercholesterolemia 136 70639 E78.2 will need to recheckmix up at last apptwill recheck at 3 mos period Anxiety 99559428 F41.1 stableuses klonapin sparingly [id number] DESHAUN MONGE [facility] [address] [place] [address] 05/05/2022 14:05:49 05/05/2022 16:29:37 Type 2 diabetes mellitus 71624049 E11.9 increase her metformin to BID; her A1c is up to 7.9% fromwill fu with patient in three months for a recheck Fatigue 25207487 R53.83 will set up lab-work [id number] DESHAUN MONEG [facility] [address] [facility] ti[address] [facility] [place] [address] 09/04/2022 15:47:50 09/05/2022 08:40:05 Active or passive immunization 064140947 Z23 patient advised she is due for flu shot, pneu 23 & shingles Adult heal th examination 607770461 Z00.00 no other concerns today will watch BP > was told her BP is true in her left arm but can never get a read will disregard for now Hypercholesterolemia 136 40163 E78.2 bw is stable Type 2 serge betes mellitus 12555847 E11.9 increase her metformin to BID; her A1c is up to 7.9% fromwill fu with patient in three months for a recheck Anxiety 35195600 F41.1 stableuses klonapin sparingly [id number] DESHAUN MONEG [facility] [address] [facility] [place] [address] 12/12/2022 14:24:29 12/12/2022 15:14:57 Hypercholesterolemia 80555854 E78.2 stable Type 2 serge betes mellitus 27868810 E11.9 A1c is up to 7.7% Low back pain 635395161 M54.59 will start her on tramadol and tizanidine Anxiety 32673454 F41.1 stableuses klonapin sparingly [id number] DESHAUN MONGE [facility] [address] [place] [address] 03/13/2023 08:15:56 03/13/2023 14:35:04 Type 2 diabetes mellitus 61949804 E11.9 start glipizide Degenerati on of lumbar intervertebral disc 01918419 M51.36 will set up with XR lumbar spinewill need MRI for continous pain and no improvemen t with conservati ve therapy [id number] DESHAUN MONGE [facility] [address] [facility] [address],[place] [address] 06/15/2023 14:21:00 06/15/2023 15:03:58 Type 2 diabetes mellitus 68727172 E11.9 doing much better Hypercholesterolemia 136 16472 E78.2 stable Low back pain 455633074 M54.59 stable [id number] DESHAUN MONGE [facility] [address] [facility] [address],[place] [address] 09/12/2023 13:22:13 09/14/2023 12:15:39 Depression screening 087019750 Z13.31 negative Anxiety 57609702 F41.1 stableuses Klonapin sparingly Type 2 serge betes mellitus 31621161 E11.9 doing much better Hypercholesterolemia 136 91817 E78.2 stable [id number] DESHAUN MONGE [facility] [address] [facility] [address],[place] [address] 12/18/2023 14:04:56 12/18/2023 16:38:40 Smoker 13573002 F17.200 starting on the vareniclin e starter arcenio for patient with instructio ns Type 2 serge betes mellitus 25944814 E11.9 still good despite dietary changesshiva mayen work on getting her quitting smoking and following her diet [id number] DESHAUN MONGE [facility] [address] [facility] [address],[place] [address] 03/21/2024 13:27:45 03/21/2024 14:09:38 Degeneration of lumbar intervertebral disc 41773757 M51.369 will hold on second opinion Smoker 64714349 F17.200 starting on the vareniclin e starter arcenio for patient with instructio ns Type 2 serge betes mellitus 33015076 E11.9 stablework ing on smoking cessation Health Concerns Section Related Observation LastModified by Organization Detai ls LastModified Time None Recorded Concern Status LastModified by Organization Details LastModified Time None Recorded Advance Directives Directive None Recorded Payers Encounter Date Sequence Insurance Name Policy Number Policy Severino Covered Member ID Severino Member ID Guarantor Name 03/13/2023 1 [facility] [id number] Dashawn Jimenez [id number] Bryant Jimenez 06/15/2023 1 [facility] [id number] Dashawn Jimenez [id number] Bryant Joineras 09/12/2023 1 [facility] [id number] Dashawn Joineras [id number] Bryant Jimenez 12/18/2023 1 [facility] [id number] Dashawn Joineras [id number] Bryant Jimenez 03/21/2024 1 [facility] [id number] Dashawn Jimenez [id number] Bryant Jimenez Notes Date Note Type Note Provider Name a nd Address Organization Details Recorded Time 4 text/html 3 mos f/u The patient is participating in this appointment via telemedicine communication with a phone call/video calling service ([email or web address])The patient consents to use of these platforms [...] orders filed for the year DESHAUN MONGE [address] [place] [address], [place], [phone], [facility] 03/13/2023 14:31:44 4 text/html f/u T2DM T2DM: Patient is a well-appearing 62 year old male/female who presents for followup on well controlled type 2 diabetesher A1c is 6.8% which is well controlledfeels good as well Low back pain: stable; has resolved on its owndoes have PT in a f/u with ortho in August HLD: excellent stable DESHAUN MONGE [address] [place], [id number], [facility] 06/15/2023 14:55:59 4 text/html f/u [...] stress related her sister DESHAUN MONGE [address] [place], [phone], [facility] 09/12/2023 13:42:51 4 text/html 3 [...] try the varenicline again DESHAUN MONGE [address] [place], [phone], [facility] 12/18/2023 14:45:51 5 text/html T2DM: Patient presents today for follow-up for Type 2 Diabetes Recent lab showed an A1c of 6.6% The patient has been compliant with medicationsThe complications patient is experiencing are noneThe patient has current concerns about related to their diabetes diagnosis weight gainThe patient has been compliant with lifestyle changes including dietary changes, exercise and healthy habits Discussion about feet reveals WNLDiscussion about eyes reveals WNL Treatment plan going forward is continue on current medications BP elevated, stable at home and recheck DESHAUN MONGE [address] [place] [address], [place], [phone], [facility] 03/21/2024 13:51:05 OBGyn Episode No OBEpisode recorded.
[2024-06-10 13:25] LABS: MANUAL DIFF FLAG NO
[2024-06-10 13:33] LABS: Basophils Absolute Auto 0.1 X10*3/uL (0.0-0.2); Basophils Percent Auto 0.5 % (0-2); Eosinophils Absolute Auto 0.6 X10*3/uL (0.0-0.4); Hematocrit 42.4 % (37.0-47.0); Hemoglobin 13.9 g/dl (12.0-16.0); Imm Gran Abs Auto 0.02 X10*3/uL (0.00-0.03); Imm Gran Pct Auto 0.2 % (0.0-0.4); Lymphocytes Absolute Auto 3.5 X10*3/uL (1.2-4.9); Lymphocytes Percent Auto 38.1 % (20-40); Mean Corpuscular HGB Conc 32.8 g/dl (31.0-35.0); Mean Corpuscular Hemoglobin 31.1 pg (27.0-33.0); Mean Corpuscular Volume 94.9 fL (80.0-98.0); Mean Platelet Volume 10.3 fL (9.4-12.3); Monocytes Absolute Auto 0.7 X10*3/uL (0.1-1.2); Monocytes Percent Auto 7.3 % (2-11); Neutrophils Absolute Auto 4.4 x10*3/uL (2.0-8.3); Neutrophils Percent Auto 47.9 % (45-73); Platelet Count 338 X10*3/uL (160-400); Red Blood Count 4.47 X10*6/uL (4.20-5.50); Red Cell Distribution Width 12.8 % (11.0-16.0); White Blood Count 9.2 X10*3/uL (4.8-10.8)
[2024-06-10 13:43] LABS: Estimated Average Glucose 151 mg/dL; Hemoglobin A1c % 6.9 % (<6.0); Total Hemoglobin (HGBA1C) 3700.4696 umol/L
[2024-06-10 13:53] LABS: Alanine Aminotransferase 25 U/L (0-31); Albumin Level 4.1 g/dL (3.5-5.0); Alkaline Phosphatase 105 U/L (39-117); Anion Gap 13 (12-20); Aspartate Amino Transferase 25 U/L (5-31); Bilirubin Total 0.4 mg/dL (0.0-1.0); Blood Urea Nitrogen 12 mg/dL (9-16); Carbon Dioxide 23 mmol/L (22-29); Chloride 105 mmol/L (96-108); Cholesterol 188 mg/dL (<200); Estimated Glomerular Filt Rate > 60; Glucose Fasting 144 mg/dL (60-99); HDL Cholesterol 46 mg/dL (>40); LDL Cholesterol Calculated 98 mg/dL (<100); Potassium 4.5 mmol/L (3.3-5.1); Sodium 136 mmol/L (135-145); Total Protein 6.9 g/dL (6.5-8.0); Triglycerides 221 mg/dL (<150)
== END 2024-06-10 09:30 | disposition home or self-care (01) ==
LOC: HO.MANLDS 09:29
PROVIDERS: Visit Provider Physician Assistant
DX: E11.9 Type 2 diabetes mellitus without complications (principal)
CPT/HCPCS: 36415; 80053; 80061; 83036; 85025

== ENCOUNTER 2024-08-27 10:04 | Outpatient (REF) | payer OTHER, SELFPAY ==
--- OUTSIDE RECORDS SUMMARY | 2024-08-27 10:50 | XMS_ITS | Data Portability ---
Author Organization [facility] Telehealth Patient Home Address [address] [place] [address] Assessment No assessment recorded. Plan of Treatment Reminders Order Date Submit Date Provider Last Modified By Organization Details Last Modified Time Details Appointments FOLLOW UP 15 2024 02:15P DESHAUN BOYCE Not available Not available Not available Lab CMP, serum or plasma 2024 025 [facility], [address] [place] [address], [id number], 06/17/2024 14:33:54 hemoglobi n A1c, QN, blood 2024 025 [facility], [address] [place] [address], [id number], 06/17/2024 14:33:55 CBC w/ auto diff 2024 025 [facility], [address] [place] [address], [id number], 06/17/2024 14:33:54 CMP, serum or plasma 2024 025 [facility], [address] [place] [address], [id number], 03/21/2024 13:54:31 hemoglobi n A1c, QN, blood 2024 025 [facility], [address] [place] [address], [id number], 03/21/2024 13:54:31 CBC w/ auto diff 2024 025 [facility], [address] [place] [address], [id number], 03/21/2024 13:54:31 lipid panel, blood 2024 025 [facility], [address] [place] [address], [id number], 03/21/2024 13:54:31 HbA1c (hemoglob in A1c), blood 2023 024 [facility], [address] [place] [address], [id number], 09/05/2023 11:22:32 CMP, serum or plasma 2023 024 [facility], [address] [place] [address], [id number], 09/05/2023 11:22:33 lipid panel, blood 2023 024 [facility], [address] [place] [address], [id number], 06/15/2023 14:54:59 CBC w/ auto diff 2023 024 [facility], [address] [place] [address], [address], 06/15/2023 14:54:59 HbA1c (hemoglob in A1c), blood 2023 024 [facility], [address] [place] [address], [address], 12/13/2023 11:32:17 CMP, serum or plasma 2023 024 [facility], [address] [place] [address], [id number], 12/13/2023 11:32:17 CMP, serum or plasma 2023 024 [facility], [address] [place] [address], [place], [address], 12/13/2023 11:32:17 HbA1c (hemoglob in A1c), blood 2023 024 [facility], [address] [place] [address], [place], [address], 03/17/2024 12:42:41 HbA1c (hemoglob in A1c), blood 2024 025 [facility], [address] [place] [address], [place], [address], 03/17/2024 12:42:41 Referral None recorded. Procedures None recorded. Surgeries None recorded. Imaging None recorded. Medication Orders varenicli ne tartrate [address] [facility] ([place] [place]Pharmacy #2024, [address] [place], [address], 03/21/2024 13:46:35 varenicli ne tartrate 1 mg tablet [address] [facility] ([place] [place]Pharmacy #2024, [address] [place], [address], 12/24/2023 10:57:52 varenicli ne tartrate 0.5 mg (11)-1 mg (42) tablets in a dose pack [address] [facility] ([place] [place]Pharmacy #5, [address] [place], [address], 12/18/2023 14:35:17 clonazepa m 0.25 mg disintegr ating tablet [address] [facility] ([place] [place]Pharmacy #2025, [address] [place], [address], 09/12/2023 13:31:20 Patient TargetsNo targets recorded. Patient InstructionsNo instructions recorded. Reason for Referral None Reported. Results Created Date Observation Date Name Description Value Unit Range Abnormal Flag Note LastModifiedBy Organization Detail LastModifiedTime 12/25/1912/17/2023 MAMMO , zane madera, digit al, bilat marlonl No observ ation record ed. [email or web address] Not Available 2023 14:37:55 Result Notes None recorded. Problems Name Problem SNOMED Code Status Onset Date Resolution Date Notes Provider Name and Address Organization Details Recorded Time Constipa tion 56963011 Active 2021 Not Available [facility] 3 03:04:48 Divertic ulitis of colon 152488343 Active 2021 clindamyc in works the best bactrim is not effective DESHAUN MONGE [address] [place] [address], [address], [facility] 3 16:50:19 Fatigue 15310057 Active 2022 Not Available [facility] 3 03:04:48 Low back pain 599472363 Active 2022 DESHAUN MONGE [address] [place] [address], [address], [facility] 3 14:43:37 Degenera tion of lumbar interver tebral disc 53087439 Active 2023 DESHAUN MONGE [address] [place] [address], [address], [facility] 4 14:22:08 Smoker 19619645 Active 2023 DESHAUN MONGE [address] [place] [address], [address], [facility] 4 14:30:50 [facility] hyperten peggy 37233789 Active 2024 DESHAUN MONGE [address] [place] [address], [address], [facility] 5 14:33:02 Type 2 diabetes mellitus 27666758 Active 2017 [facility] 4 11:55:58 Anxiety 07802014 Active 2017 [facility] [place] 4 11:55:58 Hypercho lesterol emia 97379377 Active 2017 [facility] [place] 4 11:55:58 Subclavi an steal syndrome 95507187 Active 2017 2017 Not Available [facility] 2 01:17:34 Problem Notes None recorded. Medical Equipment None Reported. Allergies Allergen ID Allergen Name Allergen Category Reaction Reaction Severity Criticality Documentation Date Start Date Code Code System Note Provider Name and Address Organization Details Recorded Time 135 amoxicill in medicatio n Not available Not available Not available 04/20/2017 723 RxNorm [facility]athy [facility] [place] 8 14:51:12 6230 levofloxa carlo medicatio n Not available Not available Not available 02/03/2022 21518 RxNorm DESHAUN MONGE [address] [place], [address], [facility] 2 14:23:49 6231 metronida zole medicatio n Not available Not available Not available 02/03/2022 6922 RxNorm DESHAUN MONGE [address] [place], [address], [facility] 2 14:24:03 Medications Name Sig Start Date [...] Not Available Not Available No t Available lisinopril 10 mg tablet TAKE 1 TABLET EVERY DAY BY ORAL ROUTE FOR 30 DAYS, FOR HYPERTENS ION. 2024 active Not Available Not Available Not Avai lable codeine 10 mg-guaifene sin 100 mg/5 mL [...] 1 TABLET BY MOUTH TWICE A DAY active Not Available Not Available No t Available varenicline tartrate 0.5 mg (11)-1 mg (42) tablets in a dose pack TAKE DIRECTED PER PACKAGE active Not Available Not Available No t Available metformin ER 500 mg 24 hr tablet,exte nded release (gastric retention) TAKE 1 TABLET BY MOUTH EVERY DAY 02/03 completed Not Available Not Available Not Available FreeStyle Lite Strips TEST GLUCOSE LEVEL [...] in Arterial blood by Pulse oximetry Systolic And Diastolic Provider Name and Address Organization Details Last Updated DateTime 5 158.75 cm 30.4 kg/m2 69914.3 9 g 106 /min 95 % 95 % 162/78 mm[Hg] Anjelica Arguello [facility] 5 13:37:05 Date Recorded Body height Body mass index (BMI) Body weight Heart rate Respiratory rate Oxygen saturation Oxygen saturation in Arterial blood by Pulse oximetry Systolic And Diastolic Provider Name and Address Organization Details Last Updated DateTime 4 158.75 cm 27.3 kg/m2 22868.2 4 g 74 /min 16 /min 98 % 98 % 130/72 mm[Hg] Cecilio Richards [facility] 4 14:30:53 Date Recorded Body height Body mass index (BMI) Body weight Heart rate Oxygen saturation Oxygen saturation in Arterial blood by Pulse oximetry Systolic And Diastolic Provider Name and Address Organization Details Last Updated DateTime 5 158.75 cm 30.7 kg/m2 70302.5 8 g 111 /min 93 % 93 % 170/66 mm[Hg] Anjelica Arguello [facility] 5 14:13:56 Date Recorded Body height Body mass index (BMI) Body weight Heart rate Oxygen saturation Oxygen saturation in Arterial blood by Pulse oximetry Systolic And Diastolic Provider Name and Address Organization Details Last Updated DateTime 4 158.75 cm 27 kg/m2 87953.8 6 g 102 /min 97 % 97 % 126/70 mm[Hg] Cecilio Richards [facility] 13:26:38 Date Recorded Body height Body mass index (BMI) Body weight Heart rate Oxygen saturation Oxygen saturation in Arterial blood by Pulse oximetry Systolic And Diastolic Provider Name and Address Organization Details Last Updated DateTime 4 158.75 cm 28.7 kg/m2 01269.2 6 g 101 /min 97 % 97 % 156/80 mm[Hg] Anjelica Arguello [facility] 4 14:11:05 Social History Question Answer Notes LastModified by [email or web address] ion Details LastModified Time Tobacco Smoking Status Former Smoker Quite a year and a half ago as of 05/02/2021 1 Pack Around 09/03/23 [facility] 09/12/2023 13:25:37 What Was The Date Of Your Most Recent Tobacco Screening? 06/17/2024 [email or web address] Information not available 06/17/2024 Sex: Unknown Functional Status None recorded. Mental [...] mcg/0.3 mL dose 1 completed Jessica garnett [facility] 03/13/2023 08:16:13 Influenza, split virus, quadrivalent, preservative 8 completed Jessica garnett [facility] 03/13/2023 08:16:13 COVID-19, mRNA, LNP-S, PF, 30 mcg/0.3 mL dose 2 completed Jessica garnett [facility] 03/13/2023 08:16:13 influenza nasal, unspecified formulation 2 completed Jessica garnett [facility] 03/13/2023 08:16:13 Influenza, split virus, quadrivalent, preservative 0 completed Jessica garnett [facility] 03/13/2023 08:16:13 Tdap 5 completed Not Available [facility] 06/17/2022 03:04:48 COVID-19, mRNA, LNP-S, PF, 30 mcg/0.3 mL dose 1 completed Jessica garnett [facility] 03/13/2023 08:16:13 COVID-19, mRNA, LNP-S, PF, 30 mcg/0.3 mL dose 1 completed Jessica garnett [facility] 03/13/2023 08:16:13 Past Encounters Encounter ID Performer Location Encounter Start Date Encounter Closed Date Diagnosis/Indication Diagnosis SNOMED-CT Code Diagnosis ICD10 Code Diagnosis Note [id number] Diego Alex DO [facility] [address] [facility],[place] [address] 05/29/2017 13:34:22 05/30/2017 08:08:08 Type 2 diabetes mellitus 20053972 E11.9 follow Subclavian steal syndrome 60019452 G45.8 up to date with vascular, Dr. Black Generalize jeffrey anxiety disorder 56408217 F41.1 stable, rare lorazepam Hypercholesterolemia 136 16211 E78.00 check profile prior to next visit Low back pain 027682843 M54.5 discuss core strengthen ing exercises [id number] [facility] [address] [facility],[place] [address] 08/20/2017 10:55:37 08/20/2017 11:57:05 Acute low back pain 771287659 M54.5 Hypercholesterolemia 136 64077 E78.00 check profile prior to next visit [id number] Diego Alex [facility] [address] [facility],[place] [address] 09/26/2017 13:28:05 09/28/2017 11:32:36 Hypercholesterolemia 90903792 E78.00 Type 2 serge betes mellitus 17312414 E11.9 follow Screening procedure 2012 5006 Z13.9 Anxiety 90649149 F41.9 Tobacco de pendence syndrome 94669513 F17.200 Body mass index 25-29 - overweight 027772049 Z68.27 [id number] [facility] [address] [facility],[place] [address] 05/31/2018 13:24:04 05/31/2018 15:45:43 Hypercholesterolemia 41109282 E78.00 Type 2 serge betes mellitus 02150845 E11.9 follow A1C 6.8 Subclavian steal syndrome 41961166 G45.8 schedule appt w/ vascular, Dr. Black Pain in left knee 478679 0061 35741 M25.562 has f/u [facility] [id number] [facility] [address] [facility],[place] [address] 01/28/2018 13:47:20 01/28/2018 16:59:02 Vitamin D deficiency 97668960 E55.9 Hypercholesterolemia 136 88856 E78.00 stable Subclavian steal syndrome 47680830 G45.8 up to date with vascular, Dr. Black Type 2 serge betes mellitus 51377833 E11.9 follow A1C remains 6.6 Tobacco de pendence syndrome 19505006 F17.200 using chantix, continue with 100% cessation [id number] [facility] [address] [facility],[place] [address] 05/21/2018 15:41:46 05/21/2018 16:27:00 Sprain of medial collateral ligament of knee 02109060 S83.412A On examina tion - cardiac murmur 447033615 R01.1 Hypercholesterolemia 136 49160 E78.00 stable Type 2 serge betes mellitus 22335843 E11.9 follow A1C remains 6.[id number] [facility] [address] [facility],[place] [address] 10/01/2018 13:25:32 10/01/2018 13:57:09 Type 2 diabetes mellitus 05441099 E11.9 Anxiety 56018151 F41.9 Hypercholesterolemia 136 12936 E78.00 Pain in right foot 32572 98825 89465 M79.671 unclear etiology [id number] [facility] [address] [facility],[place] [address] 11/12/2018 14:02:26 11/12/2018 14:42:29 Type 2 diabetes mellitus 14866080 E11.9 well controlled with just diet/exerc ise Anxiety 07220985 F41.9 clonazepam for anxiety, goes through about 30 in a year Hypercholesterolemia 136 72787 E78.00 well controlled with simvastati n Pain in right foot 96642 96247 38232 M79.671 unclear etiology Old tear o f meniscus of knee 402941998 M23.209 Chronic ankle pain 20473 36519 [address]25.[id number] [facility] [address] [facility],[place] [address] 08/01/2019 13:58:27 08/01/2019 14:37:09 Subclavian steal syndrome 61157369 G45.8 if it has progressed , will need to schedule her with vascular surgeon/ca rdiologist Adult heal th examination 630030850 Z00.00 no other concerns today will watch BP > was told her BP is true in her left arm but can never get a read will disregard for now Tobacco de pendence syndrome 35458515 F17.200 will try chantix again when she feels ready did offer wellbutrin as an option but the patient declined [id number] [facility] [address] [place] [address],[place] [address] 12/15/2019 11:27:45 12/15/2019 11:57:31 Acute otitis media 5841508 H65.02 will treat with abx as well as OTC antihistam ine for the fluid build up in her ear will call on sunday to see if improvemen t, if no improvemen t will do fu Anxiety 08050511 F41.9 stable [id number] Diego Alex [address],[place] [facility] [place] [address] 12/22/2019 16:08:00 12/22/2019 16:31:59 Serous otitis media 60871504 H65.02 will give the abx/sterio d drop the patient for patient would like her to use for the steriod component of the drop and continue to use the antihistam ine as well call with update Anxiety 78299869 F41.[id number] [facility] [address],[place] [facility] [address] 02/04/2020 08:16:55 02/04/2020 16:08:32 Anxiety 84979712 F41.9 stable Type 2 serge betes mellitus 28594613 E11.9 waiting on the to come in will call her when it comes it to go over with the patient [id number] [facility] [address] [place] [address],[place] [address] 08/04/2020 13:24:04 08/04/2020 16:04:14 Type 2 diabetes mellitus 79888137 E11.9 will start on medication and fu with recheck lab and appt in 3 mo Hypercholesterolemia 136 37763 E78.2 stable Tear of me niscus of knee 554486207 S83.207[place] [id number] [facility] [address] [facility],[place] [address] 11/08/2020 08:27:57 11/09/2020 11:53:28 Anxiety 80785672 F41.1 stableneed s refill Type 2 serge betes mellitus 93674439 E11.9 A1c is down with medication and diet changeswil l continue at same dosagefu check 3 mo [id number] [facility] [address] [facility],[place] [address] 02/04/2021 08:35:12 02/04/2021 16:24:06 Anxiety 14916340 F41.1 stable Hypercholesterolemia 136 10117 E78.2 stable Type 2 serge betes mellitus 21118871 E11.9 A1c is down with medication and diet changeswil l continue at same dosagefu check 3 mo Subclavian steal syndrome 14167163 G45.8 stable [id number] [facility] [address] [facility],[place] [address] 05/02/2021 09:23:24 05/03/2021 11:09:15 Type 2 diabetes mellitus 83701442 E11.9 stable Hypercholesterolemia 136 15921 E78.2 stable Anxiety 28447325 F41.1 stable Ganglion c yst of left foot 9916901172 437306 M67.472 will set up with [facility] [id number] [facility] [address] [facility],[place] [address] 08/09/2021 08:46:02 08/12/2021 09:26:15 Pre-surgery evaluation 081593846 Z01.818 The patient was seen in the office today for pre-op evaluation . All medical conditions on patient's problem list were addressed and are currently stable, no interventi on needed at this time. Based on history and physical performed, the patient is cleared for surgery. Type 2 serge betes mellitus 56045105 E11.9 stable, last recheck 6/10/22 Subclavian steal syndrome 19543252 G45.8 stable, no change since initial diagnosis in [id number] [facility] [address] [facility],[place] [address] 11/01/2021 13:37:14 11/01/2021 15:56:38 Type 2 diabetes mellitus 90893037 E11.9 stable, last recheck 07/29/21 Hypercholesterolemia 136 37118 E78.2 stable Anxiety 77037168 F41.1 stable [id number] [facility] [address] [facility],[place] [address] 11/16/2021 09:08:36 11/16/2021 09:34:36 Constipation 31782135 K59.00 will continue stool softener and lactulose Diverticul itis of colon 484618118 K57.32 the patient will be seeing gastroente rology [id number] [facility] [address] [facility],[place] [address] 02/03/2022 14:08:55 02/03/2022 16:12:57 Type 2 diabetes mellitus 01324476 E11.9 stable, last recheck 07/29/21 Active or passive immunization 233534632 Z23 patient advised she is due for flu shot, pneu 23 & shingles Hypercholesterolemia 136 49347 E78.2 will need to recheckmix up at last apptwill recheck at 3 mos period Anxiety 51370856 F41.1 stableuses klonapin sparingly [id number] [facility] [address] [facility],[place] [address] 05/05/2022 14:05:49 05/05/2022 16:29:37 Type 2 diabetes mellitus 10514210 E11.9 increase her metformin to BID; her A1c is up to 7.9% fromidll fu with patient in three months for a recheck Fatigue 42794098 R53.83 will set up lab-work [id number] [facility] [address] [facility],[place] [address] 09/04/2022 15:47:50 09/05/2022 08:40:05 Active or passive immunization 343089722 Z23 patient advised she is due for flu shot, pneu 23 & shingles Adult heal th examination 226250629 Z00.00 no other concerns today will watch BP > was told her BP is true in her left arm but can never get a read will disregard for now Hypercholesterolemia 136 36021 E78.2 bw is stable Type 2 serge betes mellitus 25365172 E11.9 increase her metformin to BID; her A1c is [facility] to 7.[facility] patient in three months for a recheck Anxiety 60640306 F41.1 stableuses klonapin sparingly [id number] [facility] [address] [facility], [place] [address] 12/12/2022 14:24:29 12/12/2022 15:14:57 Hypercholesterolemia 10204134 E78.2 stable Type 2 serge betes mellitus 87761234 E11.9 A1c is up to 7.7% Low back pain 235391639 M54.59 will start her on tramadol and tizanidine Anxiety 48126463 F41.1 stableuses klonapin sparingly [id number] Diego Alex [facility] [address] [facility],[place] [address] 03/13/2023 08:15:56 03/13/2023 14:35:04 Type 2 diabetes mellitus 01897143 E11.9 start glipizide Degenerati on of lumbar intervertebral disc 76788182 M51.36 will set up with XR lumbar spinewill need MRI for continous pain and no improvemen t with conservati ve therapy [id number] Diego Alex [facility] [address] [facility],[place] [address] 06/15/2023 14:21:00 06/15/2023 15:03:58 Type 2 diabetes mellitus 77027374 E11.9 doing much better Hypercholesterolemia 136 33530 E78.2 stable Low back pain 516580690 M54.[id number] [facility] [address] [facility],[place] [address] 09/12/2023 13:22:13 09/14/2023 12:15:39 Depression screening 023924772 Z13.31 negative Anxiety 40017832 F41.1 stableuses Klonapin sparingly Type 2 serge betes mellitus 68352062 E11.9 doing much better Hypercholesterolemia 136 36729 E78.2 stable [id number] Diego Alex, [facility] [address] [facility],[place] [address] 12/18/2023 14:04:56 12/18/2023 16:38:40 Smoker 63946706 F17.200 starting on the vareniclin e starter arcenio for patient with instructio ns Type 2 serge betes mellitus 99505447 E11.9 still good despite dietary changesshiva mayen work on getting her quitting smoking and following her diet [id number] Diego Alex [facility] [address] [facility],[place] [address] 03/21/2024 13:27:45 03/21/2024 14:09:38 Degeneration of lumbar intervertebral disc 17466219 M51.369 will hold on second opinion Smoker 96776151 F17.200 starting on the vareniclin e starter arcenio for patient with instructio ns Type 2 sereg betes mellitus 08696369 E11.9 stablework ing on smoking cessation [id number] Diego Alex, [facility] [address] [facility],[place] [address] 06/17/2024 14:07:46 06/17/2024 16:07:05 Depression screening 675853977 Z13.31 negative Type 2 serge betes mellitus 87784547 E11.9 stable Subclavian steal syndrome 43965850 G45.8 stable, no change since initial diagnosis in 2017 Essential hypertension 99333947 I10 will get me BP readings from home and report back in a week Health Concerns Section Related Observation LastModified by Organization Detai ls LastModified Time None Recorded Concern Status LastModified by Organization Details LastModified Time None Recorded Advance Directives Directive None Recorded Payers Insurance Date Sequence Insurance Name Policy Number Policy Severino Covered Member ID Severino Member ID Guarantor Name 03/05/2024 1 [facility] [id number] Dashawn Jimenez [id number] Brynat Jimenez 06/17/2024 1 [facility] [id number] Dashawn Jimenez [id number] Bryant Jimenez Notes Date Note Type Note Provider Name a nd Address Organization Details Recorded Time 4 text/html f/u T2DM T2DM: Patient is a well-appearing 62 year old male/female who presents for followup on well controlled type 2 diabetesher A1c is 6.8% which is well controlledfeels good as well Low back pain: stable; has resolved on its owndoes have PT in a f/u with ortho in August HLD: excellent stable DESHAUN MONGE [address] [place], [address], [facility] Medicine 06/15/2023 14:55:59 4 text/html [...] stress related her sister DESHAUN MONGE [address] [place], [address], [facility] Internal Medicine 09/12/2023 13:42:51 4 text/html [...] try the varenicline again DESHAUN MONGE [address] [place], [address], [facility] 12/18/2023 14:45:51 5 text/html [...] stable at home and recheck DESHAUN MONGE [address] [place], [address], [facility] 03/21/2024 13:51:05 5 text/html 3 mos f/u the patient is doing well overall Patient presents today for follow-up for Type 2 Diabetes Recent lab showed an A1c of 6.5% The patient has been compliant with medicationsThe patient has no complications at this timeThe patient has current concerns about related to their diabetes diagnosis weight gain and general health, working on increasing her activityThe patient has been compliant with lifestyle changes including dietary changes, exercise and healthy habits Discussion about feet reveals normal examDiscussion about eyes reveal normal exam Treatment plan going forward is cont meds, will have her take BP readings and call back in 7 days DESHAUN MONGE [address] [place], [address], [facility] Medicine 06/17/2024 14:36:04 OBGyn Episode No OBEpisode recorded.
--- OUTSIDE RECORDS SUMMARY | 2024-08-27 10:50 | XMS_ITS | Patient Health Record ---
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 Name Role Phone Ariel Bautista MD Primary Care Provider Balta Fitch Jr Unavailable Allergies Allergen (clinical drug ingredient) Drug/Non Drug Allergy documented on EMR Reaction Allergy Type Onset Date Status amoxicillin Amoxicillin Unknown Drug Allergy Act evelyne Reason For Referral No Information Medications Medication SIG (Take, Route, Fr equency, Duration) Notes Start Date End Date Status Chantix 1 MG 1 tablet Orally Once a day Active clonazePAM 0.25 MG 1 tablet Orally prn Active Simvastatin 20 MG 1 tablet in the even ing Orally Once a day Active Suprep Bowel Prep 1 as directed Orally 1 for 1 dose 01/28/2015 Active Problems Problem Type SNOMED Code ICD Code Onset Dates Problem Status W/U Status Risk Notes Problem 065136520 Colon cancer screening (Z12.11) Active confirmed Problem [id number] Encounter for other preprocedural examination (Z01.818) Active confirmed Plan Of Treatment Future Test Test Name Order Date COLONOSCOPY 01/28/2015 Insurance Providers Payer Name Payer Address Payer Phone Subscriber Number Group Number Insured Name Patient Relationship to Insured Coverage Start Date Coverage End Date [facility] [address] [place] [phone] [id number] VITO FLORIAN Self - patient is the insured Medical (General) History Medical History History ICD Code diabetes mellitus(diet controlled) anxiety Surgical History Surgery Date(Month/Year) cervical cauterization 1983 cholecystectomy sigmoidoscopy for fecal impaction
[2024-08-27 13:17] LABS: MANUAL DIFF FLAG NO
[2024-08-27 13:22] LABS: Hematocrit 40.5 % (37.0-47.0); Hemoglobin 13.6 g/dl (12.0-16.0); Imm Gran Abs Auto 0.05 X10*3/uL (0.00-0.03); Imm Gran Pct Auto 0.4 % (0.0-0.4); Lymphocytes Absolute Auto 2.5 X10*3/uL (1.2-4.9); Mean Corpuscular HGB Conc 33.6 g/dl (31.0-35.0); Mean Corpuscular Hemoglobin 31.3 pg (27.0-33.0); Mean Corpuscular Volume 93.3 fL (80.0-98.0); NRBC Abs Auto 0.000 X10*3/uL (0.0-0.012); NRBC Pct Auto 0.0 /100WBC (0.0-0.2); Platelet Count 411 X10*3/uL (160-400); Red Blood Count 4.34 X10*6/uL (4.20-5.50); White Blood Count 11.3 X10*3/uL (4.8-10.8)
[2024-08-27 13:28] LABS: Hemoglobin A1C 183.7119 umol/L; Total Hemoglobin (HGBA1C) 3546.5496 umol/L
[2024-08-27 13:38] LABS: Alanine Aminotransferase 28 U/L (0-31); Albumin Level 4.5 g/dL (3.5-5.0); Alkaline Phosphatase 99 U/L (39-117); Anion Gap 14 (12-20); Aspartate Amino Transferase 26 U/L (5-31); Blood Urea Nitrogen 14 mg/dL (9-16); Calcium 9.4 mg/dL (8.4-10.2); Carbon Dioxide 21 mmol/L (22-29); Chloride 106 mmol/L (96-108); Estimated Glomerular Filt Rate > 60; Potassium 4.1 mmol/L (3.3-5.1); Sodium 137 mmol/L (135-145); Total Protein 7.2 g/dL (6.5-8.0)
== END 2024-08-27 10:05 | disposition home or self-care (01) ==
LOC: HO.10HDL 10:04
PROVIDERS: Visit Provider Physician Assistant
DX: E11.9 Type 2 diabetes mellitus without complications (principal)
CPT/HCPCS: 36415; 80053; 83036; 85025

== ENCOUNTER 2024-12-02 09:00 | Outpatient (REF) | payer OTHER, SELFPAY ==
--- OUTSIDE RECORDS SUMMARY | 2024-12-02 09:37 | XMS_ITS | Encounter Summary ---
Author Organization [facility] Address [address] [address] Phone Care Team Providers Care Grout Worker Name Role Phone Diego Alex DO Primary Care Provider [phone] Reason for Referral * Physical Therapy (Routine) - Closed Specialty Diagnoses / Procedures Referred By Contac t Referred To Contact Physical Therapy Diagnoses Encounter for rehabilitation System, Provider Not In, PhD [address] [place] [address] Phone: tel: Referral ID Status Reason Start Date Expiration Date Visits Re quested Visits Authorized [id number] Closed 06/25/2018 02/18/2019 25 25 Encounter Details Date Type Department Care Team (Late st Contact Info) Description 06/03/2018 Transcribe Orders [facility] [address] [place] [id number] Diego Alex DO [address] [place] [address] Encounter for rehabilitation (Primary Dx) Social History Tobacco Use Types Packs/Day Years Used Date Smoking Tobacco: Never Assessed Comments Unknown Sex and Gender Information Value Date Recorded Sex Assigned at Female 06/16/2022 2:14 PM EDT Legal Sex Female 9:45 PM EDT Gender Identity Female 06/16/2022 2:14 PM EDT Sexual Orientation Straight 06/16/2022 4: 37 PM EDT documented as of this encounter Plan of Treatment Scheduled Referrals Name Type Priority Associated Diagnoses Orde r Schedule Ambulatory referral to [facility] Physical Therapy Outpatient Referral Routine Encounter for rehabilitation Ordered: 06/03/2018 documented as of this encounter Visit Diagnoses Diagnosis Encounter for rehabilitation- Primary documented in this encounter Care Teams Grout Worker Relationship Specialty Start Date End Date Diego Alex DO [email or web address] PCP - General Internal Medicine 05/31/18 documented as of this encounter Additional Source Comments The information contained in this document represents components of the legal health record. It is not the complete legal health record.[facility]
--- OUTSIDE RECORDS SUMMARY | 2024-12-02 09:37 | XMS_ITS | Clinical Summary ---
Author Organization [facility] Address [address] [address] Phone Care Team Providers Care Supervisory Lifeguard Name Role Phone Diego Alex Primary Care Provider [phone] Allergies Active Allergy Reactions Criticality Noted Date Comments Amoxicillin 12/07/2019 Levofloxacin 06/16/2022 Metronidazole 06/16/2022 Medications varenicline (CHANTIX STARTING MONTH BOX) 0.5 mg (11)- 1 mg (42) tablet Chantix Starting Month Box 0.5 mg (11)-1 mg (42) tablets in dose pack TAKE DIRECTED PER PACKAGE Active cholecalciferol (VITAMIN D3) 2,000 unit capsule daily. Active clonazePAM (KLONOPIN) 0.25 MG disintegrating tablet clonazepam 0.25 mg disintegrating tablet Active simvastatin (ZOCOR) 20 MG tablet simvastatin 20 mg tablet Active metFORMIN (GLUCOPHAGE) 500 MG tablet Take 500 mg by mouth 2 (two) times a day with meals. Active magnesium oxide 250 mg (150 mg elemental) Tab Take 250 mg by mouth daily. Active sulfamethoxazole-t rimethoprim (BACTRIM,SEPTRA) 400-80 mg per tablet Take 1 tablet by mouth. Active clindamycin (CLEOCIN) 300 MG capsule Take 1 capsule (300 mg total) by mouth 3 (three) times a day. 30 capsule 06/17/19 Active ondansetron (ZOFRAN-ODT) 4 MG disintegrating tablet Take 1 tablet (4 mg total) by mouth every 8 (eight) hours as needed for nausea. 12 tablet 06/17/19 Active Active Problems Problem Noted Date Diagnosed Date Anxiety 04/20/2017 Hypercholesterolemia 04/20/2017 Subclavian steal syndrome 04/20/2017 Type 2 diabetes mellitus 04/20/2017 Social History Tobacco Use Types Packs/Day Years Used Date Smoking Tobacco: Former Smokeless Tobacco: Never Education Answer Date Recorded Are you interested in more education? Not on sathish e 06/16/2022 Are you concerned about learning? Not on file 06/16/2022 No 06/16/2022 No 06/16/2022 Digital Access Answer Date Recorded No 07/15/2022 No 07/15/2022 No 07/15/2022 Reliable internet access at home? Not on file 07/15/2022 Device with a working camera? Not on file Intimate Partner Violence Answer Date R ecorded Are you denied basic needs s uch as food, clothing, or medical care? No 06/16/2022 In the past 12 months have y ou been in a relationship with a person who hurts, threatens, or tries to control you? No 06/16/2022 Are you denied basic needs s uch as food, clothing, or medical care? No 06/16/2022 In the past 12 months have y ou been in a relationship with a person who hurts, threatens, or tries to control you? No 06/16/2022 Comments Unknown Sex and Gender Information Value Date Recorded Sex Assigned at Female 06/16/2022 2:14 PM EDT Legal Sex Female 9:45 PM EDT Gender Identity Female 06/16/2022 2:14 PM EDT Sexual Orientation Straight 06/16/2022 4: 37 PM EDT Last Filed Vital Signs Vital Sign Reading Time Taken Comments Blood Pressure 96/72 06/16/2022 8:55 PM EDT Pulse 80 06/16/2022 2:55 PM EDT Temperature 37 C (98.6 F) 06/16/2022 6:15 PM EDT Respiratory Rate 16 06/16/2022 6:15 PM EDT Oxygen Saturation 98% 06/16/2022 6:20 PM EDT Inhaled Oxygen Concentration - - Weight 74.3 kg (163 lb 12.8 oz) 020 10:44 AM EDT Height 158.8 cm (5' 2.5 ) 12/07/2019 10 :44 AM EDT Body Mass Index 29.48 12/07/2019 10:44 AM EDT Plan of Treatment Health Maintenance Due Date Last Done Comments BLOOD PRESSURE 1961 HEMOGLOBIN A1C 1961 DEPRESSION SCREENING 1973 SMOKING Hx and SMOKELESS TOBACCO SCREENING 1974 HEPATITIS C SCREENING 12/10/1979 HIV ONE-TIME SCREENING (18-65 YEARS) 12/10/1979 PNEUMOCOCCAL VACCINES (50+ years) (1 of 2 - PCV) 1980 PAP SMEAR 1982 MAMMOGRAM 2001 COLOGUARD 2006 COLONOSCOPY 2006 COLORECTAL CANCER SCREENING 2006 FIT TEST 2006 FOBT 2006 SIGMOIDOSCOPY 2006 VIRTUAL COLONOSCOPY 2006 ZOSTER VACCINES (1 of 2) 12/10/2011 DIABETIC EYE EXAM 12/07/2019 URINE MICROALBUMIN/CREATININE RATIO 12/07/2019 CREATININE LEVEL 06/17/2023 06/16/2022 Adult Td,Tdap Booster 06/18/2024 06/18/2014 INFLUENZA VACCINE (#1) 2024 0, 12/05/2018, 11/25/2017, Additional history exists COVID-19 VACCINE ( season) 2024 07/09/2021, 12/27/2020, 06/01/2020, Additional history exists RSV VACCINE (1 - 1-dose 75+ series) 2036 HEPATITIS A VACCINES Aged Out No long er eligible based on patient's age to complete this topic HIB VACCINES Aged Out No longer eligi ble based on patient's age to complete this topic MENINGOCOCCAL VACCINES (ACWY) Aged Out No longer eligible based on patient's age to complete this topic MENINGOCOCCAL VACCINES (B) Aged Out N o longer eligible based on patient's age to complete this topic Medical Devices Not on file Procedures Procedure Name Priority Date/Time Associated Diagnosis Comments BASIC METABOLIC PANEL STAT 06/16/2022 2:39 PM EDT from Last 3 Months or Most Recently Relevant to Health Maintenance Results * (ABNORMAL) Basic metabolic panel (06/16/2022 2:39 PM EDT) SODIUM 137 133 - 146 mmol/L [facility] CHLORIDE 100 96 - 108 mmol/L [facility] POTASSIUM 4.5 3.3 - 5.1 mmol/L [facility] Comment:Specimen slightly he molyzed, result may be falsely elevated. CO2 24 21 - 35 mmol/L [facility] BUN 9 6 - 19 mg/dL [facility] CREATININE 0.90 0.5 - 1.5 mg/dL [facility] GLUCOSE 146(H) 70 - 99 mg/dL [facility] CALCIUM 10.0 8.4 - 10.3 mg/dL [facility] EGFR 73 >59 mL/min/1.7 3m2 [facility] Comment:Estimated glomerular filtration rate calculated using the CKD-EPI refit equation. ANION GAP 18 10 - 20 mmol/L [facility] Blood 06/16/2022 2:39 PM EDT 06/16/2022 3:01 PM EDT Obey Deal MD LAB BLOOD ORDERABLES Fin al Result [facility] [address] [place] [address] from Last 3 Months or Most Recently Relevant to Health Maintenance Insurance [place] [address] [place] [address] HMO O O O O Member Subscriber Plan / Payer (Ef fective 2018-Present) Name:Bryant Florian Relation to Subscriber:Spouse Name:SUNI FLORIAN Date of :1963 (Home) Address: [address] [place] [address] Payer ID:Not on file Type:HMO Address: [place] [id number] Care Teams Supervisory Lifeguard Relationship Specialty Start Date End Date Diego Alex DO [email or web address] PCP - General Internal Medicine 05/31/18 Additional Source Comments The information contained in this document represents components of the legal health record. It is not the complete legal health record.[facility]
--- OUTSIDE RECORDS SUMMARY | 2024-12-02 09:37 | XMS_ITS | Patient Health Record ---
Author Organization [facility] Address [address] [place] [address] Care Team Providers Care Behavioral Consultant Name Role Phone Lily (RETIRED) Ariel REN Primary Care Provide Balta Ortiz Jr Unavailable [phone] Allergies Allergen (clinical drug ingredient) Drug/Non Drug [...] Bowel Prep 1 as directed Orally 1 ; Duration: 1 dose 01/28/2015 Active Problems Problem Type SNOMED Code ICD Code Onset Dates Problem Status W/U Status Risk Notes Problem Colon cancer screening (463050341) Colon cancer screening (Z12.11) Active confirmed Problem Pre-procedure evaluation check (592470080) Encounter for other preprocedural examination (Z01.818) Active confirmed Plan Of Treatment Future Test Test Name Order Date COLONOSCOPY 01/28/2015 Insurance Providers Payer Name Payer Address Payer Phone Subscriber Number Group Number Insured Name Patient Relationship to Insured Coverage Start Date Coverage End Date [facility] [address] [place] [phone] [id number] VITO FLORIAN Self - patient is the insured Medical (General) History Medical History History ICD Code diabetes mellitus(diet controlled) anxiety Surgical History Surgery Date(Month/Year) cervical cauterization 1983 cholecystectomy sigmoidoscopy for fecal impaction
--- OUTSIDE RECORDS SUMMARY | 2024-12-02 09:37 | XMS_ITS | Encounter Summary ---
Author Organization [facility] Address [address] [address] Phone Care Team Providers Care Awake Overnight Counselor Name Role Phone Diego Alex Primary Care Provider [phone] Encounter Details Date Type Department Care Team (Late st Contact Info) Description 06/16/2022 Procedure Pass [facility], Ct Scan - [address] [address] Social History Tobacco Use Types Packs/Day Years Used Date Smoking Tobacco: Former Smokeless Tobacco: Never Education Answer Date Recorded Are you interested in more education? Not on sathish e 06/16/2022 Are you concerned about learning? Not on file 06/16/2022 No 06/16/2022 No 06/16/2022 Intimate Partner Violence Answer Date R ecorded [...] PM EDT documented as of this encounter Functional Status * Calculated C-SSRS Risk Score (Lifetime/Recent) Answer Date of Assessment Author No Risk Indicated 06/16/2022 4:36 PM EDT Shoshana Loomis, GWENDOLYN * [place] Suicide Severity Rating Scale (Screener/Recent Self-Report) Question Answer Date of Assessment Author 1. Wish to be (Past 1 Month) No 023 4:36 PM EDT Shoshana Pineda, GWENDOLYN 2. Non-Specific Active Suici dasha Thoughts (Past 1 Month) No 06/16/2022 4:36 PM EDT Shoshana Pineda, GWENDOLYN 6. Suicidal Behavior (Lifetime) No 4:36 PM EDT Shoshana Pineda RN documented as of this encounter Plan of Treatment Not on file documented as of this encounter Visit Diagnoses Not on filedocumented in this encounter Care Teams Awake Overnight Counselor Relationship Specialty Start Date End Date Diego Alex DO [email or web address] PCP - General Internal Medicine 05/31/18 documented as of this encounter Additional Source Comments The information contained in this document represents components of the legal health record. It is not the complete legal health record.[facility]
[2024-12-02 13:21] LABS: MANUAL DIFF FLAG NO
[2024-12-02 13:37] LABS: Hematocrit 41.2 % (37.0-47.0); Hemoglobin 13.4 g/dl (12.0-16.0); Imm Gran Abs Auto 0.03 X10*3/uL (0.00-0.03); Imm Gran Pct Auto 0.3 % (0.0-0.4); Lymphocytes Absolute Auto 4.3 X10*3/uL (1.2-4.9); Mean Corpuscular HGB Conc 32.5 g/dl (31.0-35.0); Mean Corpuscular Hemoglobin 30.8 pg (27.0-33.0); Mean Corpuscular Volume 94.7 fL (80.0-98.0); NRBC Abs Auto 0.000 X10*3/uL (0.0-0.012); NRBC Pct Auto 0.0 /100WBC (0.0-0.2); Platelet Count 410 X10*3/uL (160-400); Red Blood Count 4.35 X10*6/uL (4.20-5.50); White Blood Count 11.3 X10*3/uL (4.8-10.8)
[2024-12-02 13:49] LABS: Hemoglobin A1C 153.7275 umol/L; Total Hemoglobin (HGBA1C) 3476.4882 umol/L
[2024-12-02 14:17] LABS: Alanine Aminotransferase 21 U/L (0-31); Albumin Level 4.2 g/dL (3.5-5.0); Anion Gap 11 (12-20); Aspartate Amino Transferase 22 U/L (5-31); Blood Urea Nitrogen 11 mg/dL (9-16); Calcium 8.8 mg/dL (8.4-10.2); Carbon Dioxide 23 mmol/L (22-29); Chloride 108 mmol/L (96-108); Cholesterol 131 mg/dL (<200); Estimated Glomerular Filt Rate > 60; HDL Cholesterol 34 mg/dL (>40); Potassium 4.0 mmol/L (3.3-5.1); Sodium 138 mmol/L (135-145); Total Protein 6.9 g/dL (6.5-8.0); Triglycerides 186 mg/dL (<150)
[2024-12-02 14:27] LABS: Alkaline Phosphatase 97 U/L (39-117)
== END 2024-12-02 09:01 | disposition home or self-care (01) ==
LOC: HO.MANLDS 09:00
PROVIDERS: Visit Provider Physician Assistant
DX: I10 Essential (primary) hypertension (principal); E11.9 Type 2 diabetes mellitus without complications
CPT/HCPCS: 36415; 80053; 80061; 83036; 85025

== ENCOUNTER 2024-12-11 12:05 | Outpatient (REF) | payer OTHER, SELFPAY ==
--- NOTE | ~2024-12-11 | XR_ITS ---
EXAMINATION: X-ray bilateral ankles CLINICAL INFORMATION: Pain COMPARISON: X-ray right ankle 10/07/2018 TECHNIQUE: Right ankle 3 views. Left ankle 3 views. FINDINGS: Right ankle: Bony mineralization is normal. Ankle mortise is intact. No visible acute fracture, dislocation or suspicious bony lesion seen. No significant joint effusion is seen. No talar dome OCD. Left ankle: Bone mineralization is normal. Ankle mortise is intact. No visible acute fracture, dislocation or suspicious bony lesion. No joint effusion. No talar dome OCD. Small posterior calcaneal spur. XR/XR ankle LT min 3V IMPRESSION: No radiographic evidence of acute osseous findings. Electronically signed by: Fernando Vegas MD 12/11/2024 03:11 PM EDT
--- NOTE | ~2024-12-11 | XR_ITS ---
EXAMINATION: X-ray bilateral ankles CLINICAL INFORMATION: Pain COMPARISON: X-ray right ankle 10/07/2018 TECHNIQUE: Right ankle 3 views. Left ankle 3 views. FINDINGS: Right ankle: Bony mineralization is normal. Ankle mortise is intact. No visible acute fracture, dislocation or suspicious bony lesion seen. No significant joint effusion is seen. No talar dome OCD. Left ankle: Bone mineralization is normal. Ankle mortise is intact. No visible acute fracture, dislocation or suspicious bony lesion. No joint effusion. No talar dome OCD. Small posterior calcaneal spur. XR/XR ankle RT min 3V IMPRESSION: No radiographic evidence of acute osseous findings. Electronically signed by: Fernando Vegas MD 12/11/2024 03:11 PM EDT
--- OUTSIDE RECORDS SUMMARY | 2024-12-11 15:16 | XMS_ITS | Encounter Summary ---
Author Organization [facility] Address [address] [address] Phone Care Team Providers Care Allied Health Professional Name Role Phone Diego Alex DO Primary Care Provider Reason for Referral * Physical Therapy (Routine) - Closed Specialty Diagnoses / Procedures Referred By Contac t Referred To Contact Physical Therapy Diagnoses Encounter for rehabilitation System, Provider Not In, PhD [address] [place] [address] Phone: tel: Referral ID Status Reason Start Date Expiration Date Visits Re quested Visits Authorized [id number] Closed 06/25/2018 02/18/2019 25 25 Encounter Details Date Type Department Care Team (Late st Contact Info) Description 06/03/2018 Transcribe Orders [facility] [address] [place] [address] Diego Alex DO [address] [facility] [place] [address] [email or web address] Encounter for rehabilitation (Primary Dx) Social History [...] Diagnoses Orde r Schedule Ambulatory referral to [facility] Physical Therapy Outpatient Referral Routine Encounter for rehabilitation Ordered: 06/03/2018 documented as of this encounter Visit Diagnoses Diagnosis Encounter for rehabilitation- Primary documented in this encounter Care Teams Allied Health Professional Relationship Specialty Start Date End Date Diego Alex DO [email or web address] PCP - General Internal Medicine 05/31/18 documented as of this encounter Additional Source Comments The information contained in this document represents components of the legal health record. It is not the complete legal health record.[facility]
--- OUTSIDE RECORDS SUMMARY | 2024-12-11 15:16 | XMS_ITS | Encounter Summary ---
Author Organization [facility] Address [address] [address] Phone Care Team Providers Care Local Area Network Systems Adminstrator Name Role Phone Diego Alex Primary Care Provider [phone] Encounter Details Date Type Department Care Team (Late st Contact Info) Description 06/16/2022 Procedure Pass [facility], Ct Scan - [address] [address] Social History Tobacco Use Types Packs/Day Years [...] 4:36 PM EDT Shoshana Loomis, GWENDOLYN * [facility] Suicide Severity Rating Scale (Screener/Recent Self-Report) Question [...] on filedocumented in this encounter Care Teams Local Area Network Systems Adminstrator Relationship Specialty Start Date End Date Diego Alex DO [email or web address] PCP - General Internal Medicine 05/31/18 documented as of this encounter Additional Source Comments The information contained in this document represents components of the legal health record. It is not the complete legal health record.[facility]
--- OUTSIDE RECORDS SUMMARY | 2024-12-11 15:16 | XMS_ITS | Continuity of Care Document ---
Author Organization [facility], [facility] Address [address] [place] [address] [place] [address] Assessment No assessment recorded. Plan of Treatment Reminders Order Date Submit Date Provider Last Modified By Organization Details Last Modified Time Details Appointments FOLLOW UP 15 2025 01:30P M DESHAUN MONGE Not available Not available Not available Lab None recorded. Referral podiatris t referral 2024 025 ihsan Hannon DPM, [address] [place], [address], 2024 09:19:08 Procedures None recorded. Surgeries None recorded. Imaging XR, ankle, 3 or more view 2024 025 [email or web address] [facility], [address] [place], [address], 12/08/2024 16:26:01 XR, ankle, 3 or more view 2024 025 [facility], [address] [place], [address], 12/11/2024 15:15:50 Medication Orders losartan 100 mg tablet 2024 025 [place] [facility], [address] [place], [address], 12/08/2024 16:06:40 Patient TargetsNo targets recorded. Patient InstructionsNo instructions recorded. Reason for Referral Electrical Timing Device Calibrator Referral for Pain in left foot complications after previous surgery, callous formation and keloid scarring Referring Physician: Alexi Day, Internal Medicine, Encounter Date: 12/08/2024 Results Created Date Observation Date Name Description Value Unit Range Abnormal Flag Note LastModifiedBy Organization Detail LastModifiedTime 12/12/1912/11/2024 XR, ankle , 3 or more view No observ ation record ed. [facility] (Medical Records) [address] [place], [address], 12/11/2024 15:15:50 Result Notes None recorded. Problems Name Problem SNOMED Code Status Onset Date Resolution Date Notes Provider Name and Address Organization Details Recorded Time Type 2 diabetes mellitus 52660647 Active 2017 Anjelica garnett [facility] 4 11:55:58 Anxiety 00763441 Active 2017 Anjelica garnett [facility] 4 11:55:58 Hypercho lesterol emia 80590156 Active 2017 Anjelica garnett [facility] 4 11:55:58 Subclavi an steal syndrome 20585776 Active 2017 2017 Not Available [facility] 2 01:17:34 Constipa tion 38647370 Active 2021 Not Available [facility] 3 03:04:48 Divertic ulitis of colon 220382064 Active 2021 clindamyc in works the best bactrim is not effective DESHAUN MONGE [address] [place], [address], [facility] 3 16:50:19 Fatigue 14543124 Active 2022 Not Available [facility] 3 03:04:48 Low back pain 075360429 Active 2022 DESHAUN MONGE [address] [place], [address], [facility] 3 14:43:37 Degenera tion of lumbar interver tebral disc 80804135 Active 2023 DESHAUN MONGE [address] [place], [address], [facility] 4 14:22:08 Smoker 31979786 Active 2023 DESHAUN MONGE [address] [place], [address], [facility] 4 14:30:50 [facility] hyperten peggy 48603328 Active 2024 DESHAUN MONGE [address] [place] [address], [address], [facility] 5 14:33:02 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 2 diabetes mellitus 67511506364 9109 Active 2024 DESHAUN MONGE [address] [place] [address], [address], [facility] 5 14:33:24 Bilatera l stenosis of carotid arteries 191712295 Active 2024 DESHAUN MONGE [address] [place] [address], [address], [facility] 5 14:37:32 Primary insomnia 6500091 Active 2024 DESHAUN MONGE [address] [place] [address], [address], [facility] 5 14:41:01 Pain in left foot 26380294141 9107 Active 2024 DESHAUN MONGE [address] [place] [address], [address], [facility] 5 16:01:10 Acute ankle pain 34050891052 105 Active 2024 DESHAUN MONGE [address] [place] [address], [address], [facility] 5 16:04:01 Problem Notes None recorded. Medical Equipment None Reported. Allergies Allergen ID Allergen Name Allergen Category Reaction Reaction Severity Criticality Documentation Date Start Date Code Code System Note Provider Name and Address Organization Details Recorded Time 135 amoxicill in medicatio n Not available Not available Not available 04/20/2017 723 RxNorm Cathy Martinez [facility] Internal [facility] 8 14:51:12 6230 levofloxa carlo medicatio n Not available Not available Not available 02/03/2022 20441 RxNorm ALEXI DAY, DESHAUN [address] [place], [address], [facility] 2 14:23:49 6231 metronida zole medicatio n Not available Not available Not available 02/03/2022 6922 RxNorm DESHAUN MONGE [address] [place], [address], [facility] 2 14:24:03 Medications Name Sig Start Date Stop Date Status Note LastModified by Organization Details LastModified Time freestyle lyla lite 12/14 completed Not Available Not Available Not Available losartan 50 mg tablet TAKE 1 TABLET BY MOUTH EVERY DAY DIRECTED active Not Available Not Available No t Available cyclobenzap rine 10 mg tablet 09/26 [...] 1 TABLET BY MOUTH DAILY FOR PAIN 09/01 completed Not Available Not Available Not Available prednisone 20 mg tablet TAKE 1 [...] lisinopril 10 mg tablet TAKE 1 TABLET BY MOUTH EVERY DAY FOR HYPERTENS ION 09/01 completed Not Available Not Available Not Available codeine 10 mg-guaifene sin 100 mg/5 mL oral liquid 05/29 completed Not Available Not Available Not Available lorazepam 1 mg tablet TAKE 1-2 TABLETS BY MOUTH FOR PROCEDURE 09/01 completed Not Available Not Available Not Available levofloxaci n 750 mg tablet 02/03 completed Not Available Not Available Not Available ondansetron 4 mg disintegrat ing tablet 02/03 completed Not Available Not Available Not Available losartan 100 mg tablet Take 1 tablet every day by oral route as directed for 90 days. 2024 active Not Available Not Available Not Avai lable metformin ER 500 mg tablet,exte nded release [...] Not Available Not Available Not Available aspirin active Not Available Not Avail able Not Available sodium fluoride 1.1 % dental [...] Available Not Available Not Available Afluria Qd 2018-20 (36 mos up)(PF)60 mcg (15 mcg x4)/0.5 mL IM syringe 12/14 completed Not Available Not Available Not Available Fluarix Quad (PF) 60 mcg (15 mcg x 4)/0.5 mL IM syringe 12/14 completed Not Available Not Available Not Available BinaxNOW COVID-19 Ag Self Test kit TEST DIRECTED TODAY 05/05 completed Not Available Not Available Not Available Mounjaro 5 mg/0.5 mL subcutaneou s pen injector INJECT 0.5 ML UNDER THE SKIN WEEKLY DIRECTED active Not Available Not Available No t Available Mounjaro 2.5 mg/0.5 mL subcutaneou s pen injector Inject 2.5 mg every week by subcutane ous route as directed for 90 days. 12/08 completed Not Available Not Available Not Available Vitals Date Recorded Body height Body mass index (BMI) Body weight Heart rate Oxygen saturation Oxygen saturation in Arterial blood by Pulse oximetry Systolic And Diastolic Provider Name and Address Organization Details Last Updated DateTime 158.75 cm 29.9 kg/m2 37108.3 3 g 99 /min 97 % 97 % 150/86 mm[Hg] Ngozi Locke [facility] 15:54:05 Social History Question Answer Notes LastModified by Organizat ion Details LastModified Time Tobacco Smoking Status Former Smoker Quite a year and a half ago as of 05/02/2021 1 Pack Around 09/03/23 Cecilio garnett [facility] 09/12/2023 13:25:37 What Was The Date Of Your Most Recent Tobacco Screening? 12/08/2024 [email or web address] Information not available 12/08/2024 Sex: Unknown Functional Status None recorded. Mental [...] mcg/0.3 mL dose 1 completed Jessica garnett [facility] 03/13/2023 08:16:13 Influenza, split virus, quadrivalent, preservative 8 [facility] 08:16:13 COVID-19, mRNA, LNP-S, PF, 30 mcg/0.3 mL dose 2 [facility]2023 08:16:13 influenza nasal, unspecified formulation 2 completed Jessica garnett [facility] 03/13/2023 08:16:13 Influenza, split virus, quadrivalent, preservative 0 [facility] 03/13/2023 08:16:13 Tdap 5 completed Not Available [facility] 06/17/2022 03:04:48 COVID-19, mRNA, LNP-S, PF, 30 mcg/0.3 mL dose 1 completed Jessica garnett [facility] 03/13/2023 08:16:13 COVID-19, mRNA, LNP-S, PF, 30 mcg/0.3 mL dose 1 completed Jessica Maldonado [facility] 03/13/2023 08:16:13 Past Encounters Encounter ID Performer Location Encounter Start Date Encounter Closed Date Diagnosis/Indication Diagnosis SNOMED-CT Code Diagnosis ICD10 Code Diagnosis IMO Codes Diagnosis Note [id number] Diego Alex DO [facility] [address],[place] [address] 12/08/2024 15:49:20 12/08/2024 16:26:01 Depression screening 046141293 Z13.31 negative Pain in left foot 398177 4311 96033 M79.672 864777 Acute ankle pain 0974010 011 9105 M25.572 M25.571 44027399 27034228 recommend imaging looks like tissue changes fro tendinopat hy Essential hypertension 39661446 I10 will switch to losartan Health Concerns Section Related Observation LastModified by Organization Detai ls LastModified Time None Recorded Concern Status LastModified by Organization Details LastModified Time None Recorded Payers Encounter Date Sequence Insurance Name Policy Number Policy Severino Covered Member ID Severino Member ID Guarantor Name 12/08/2024 1 [facility] [id number] Dashawn Jimenez [id number] Bryant Jimenez Notes Date Note Type Note Provider Name a nd Address Organization Details Recorded Time 5 text/html ROS as noted in the HPI 2 week f/u BP is still elevated today in office againrecommended 100 mg for the BP control, was on the 50 mg (prior to that the 25 mg) hoping with the increasing dosage amount of mounjaro it'll decrease the BP and we can taper it back down to the 50 to 25 mg depending on how well she responds to the medication hoping to drop the oral meds for her diabetes as wellgreat control, down to 6.2% which is excellent as she was starting to increase even with titration of her medications will continue to increase mounjaro to the 7.5% for next dosedoes have some mild acid reflux the first day she uses it recommended pre medicating with pepcid/tums for she injects herself has two red lines along anterior aspect centrally of her ankles, which when she flexes or extends feel tight and burning could be tissue changes from tendon inflammation under the skinotherwise doing well DESHAUN MONGE [address], [place], [address], [facility] 12/08/2024 16:16:18 OBGyn Episode No OBEpisode recorded.
--- OUTSIDE RECORDS SUMMARY | 2024-12-11 15:17 | XMS_ITS | Clinical Summary ---
Author Organization [facility] Address [address] [address] Phone Care Team Providers Care Principal Statistical Programmer Name Role Phone Diego Alex Primary Care Provider [phone] Allergies Active Allergy Reactions Criticality Noted Date [...] EDT) SODIUM 137 133 - 146 mmol/L [facility] CHLORIDE 100 96 - 108 mmol/L [facility] POTASSIUM 4.5 3.3 - 5.1 mmol/L [facility] Comment:Specimen slightly he molyzed, result may be falsely elevated. CO2 24 21 - 35 mmol/L [facility] BUN 9 6 - 19 mg/dL [facility] CREATININE 0.90 0.5 - 1.5 mg/dL [facility] GLUCOSE 146(H) 70 - 99 mg/dL [facility] CALCIUM 10.0 8.4 - 10.3 mg/dL [facility] EGFR 73 >59 mL/min/1.7 3m2 [facility] Comment:Estimated glomerular filtration rate calculated using the CKD-EPI refit equation. ANION GAP 18 10 - 20 mmol/L [facility] Blood 06/16/2022 2:39 PM EDT 06/16/2022 3:01 PM EDT Obey Deal MD LAB BLOOD ORDERABLES Fin al Result [facility] [address] [place] [address] from Last 3 Months or Most Recently Relevant to Health Maintenance Insurance [place] [address] [address] [place] [address] HMO O O O O Member Subscriber Plan / Payer (Ef fective 2018-Present) Name:Bryant Florian Relation to Subscriber:Spouse Name:SUNI FLORIAN Date of :1963 (Home) Address: [address] [place] [address] Payer ID:Not on file Type:HMO Address: [place] [phone] Care Teams Principal Statistical Programmer Relationship Specialty Start Date End Date Diego Alex DO [email or web address] PCP - General Internal Medicine 05/31/18 Additional Source Comments The information contained in this document represents components of the legal health record. It is not the complete legal health record.[facility]
--- OUTSIDE RECORDS SUMMARY | 2024-12-11 15:17 | XMS_ITS | Data Portability ---
Author Organization [facility], Telehealth Patient Home Address [address] [place] [address] Assessment No assessment recorded. Plan of Treatment Reminders Order Date Submit Date Provider Last Modified By Organization Details Last Modified Time Details Appointments FOLLOW UP 15 2025 01:30P DESHAUN BOYCE Not available Not available Not available Lab CMP, serum or plasma 2024 025 [facility], [address] [place] [address], [id number], 08/28/2024 13:32:45 hemoglobi n A1c, QN, blood 2024 025 [facility], [address] [place] [address], [id number], 08/28/2024 13:32:46 CBC w/ auto diff 2024 025 [facility], [address] [place] [address], [address], 08/28/2024 13:32:46 CMP, serum or plasma 2024 025 [facility], [address] [place] [address], [address], 08/28/2024 13:32:45 hemoglobi n A1c, QN, blood 2024 025 [facility], [address] [place] [address], [address], 08/28/2024 13:32:46 CBC w/ auto diff 2024 025 [facility], [address] [place] [address], [address], 08/28/2024 13:32:46 CMP, serum or plasma 2024 025 [facility], [address] [place] [address], [address], 03/21/2024 13:54:31 hemoglobi n A1c, QN, blood 2024 025 [facility], [address] [place] [address], [address], 03/21/2024 13:54:31 CBC w/ auto diff 2024 025 [facility], [address] [place] [address], [address], 03/21/2024 13:54:31 lipid panel, blood 2024 025 [facility], [address] [place] [address], [address], 03/21/2024 13:54:31 Referral podiatris t referral 2024 025 ihsan Hannon DPM, [address] [facility], [place], [address], 2024 09:19:08 Procedures None recorded. Surgeries None recorded. Imaging XR, ankle, 3 or more view 2024 025 [email or web address] [facility] Scheduling, [address] [place] [address], [address], 12/08/2024 16:26:01 XR, ankle, 3 or more view 2024 025 [facility] Sched[facility], [address] [place] [address], [address], 12/11/2024 15:15:50 Medication Orders losartan 100 mg tablet 2024 025 [facility] [address] [place], [address], 12/08/2024 16:06:40 Mounjaro 2.5 mg/0.5 mL subcutane ous pen injector 2024 025 [facility] [address] [place], [address], 12/08/2024 15:55:57 losartan 50 mg tablet 2024 025 [facility] [address] [place], [address], 09/01/2024 14:31:17 Mounjaro 2.5 mg/0.5 mL subcutane ous pen injector 2024 025 [email or web address] [address] [place], [address], 12/08/2024 15:55:48 varenicli ne tartrate 1 mg tablet 2024 025 [facility] [address] [place], [address], 03/21/2024 13:46:35 Patient TargetsNo targets recorded. Patient InstructionsNo instructions recorded. Reason for Referral [employer] Referral for Pain in left foot complications after previous surgery, callous formation and keloid scarring Referring Physician: Magnolia Day, Internal Medicine, Encounter Date: 12/08/2024 Results Created Date Observation Date Name Description Value Unit Range Abnormal Flag Note LastModifiedBy Organization Detail LastModifiedTime 12/12/1912/11/2024 XR, ankle , 3 or more view No observ ation record ed. [facility] (Medical Records) [address] [place], [address], 12/11/2024 15:15:50 Result Notes None recorded. Problems Name Problem SNOMED Code Status Onset Date Resolution Date Notes Provider Name and Address Organization Details Recorded Time Type 2 diabetes mellitus 39959418 Active 2017 Anjelica garnett [facility] 4 11:55:58 Anxiety 20070092 Active 2017 Anjelica garnett [facility] 4 11:55:58 Hypercho lesterol emia 45266496 Active 2017 Anjelica garnett [facility] 4 11:55:58 Subclavi an steal syndrome 63567166 Active 2017 2017 Not Available [facility] 2 01:17:34 Constipa tion 74159764 Active 2021 Not Available [facility] 3 03:04:48 Divertic ulitis of colon 901903116 Active 2021 clindamyc in works the best bactrim is not effective DESHAUN MONGE [address] [place], [address], [facility] 3 16:50:19 Fatigue 77606161 Active 2022 Not Available [facility] 3 03:04:48 Low back pain 915524331 Active 2022 DESHAUN MONGE [address] [place], [address], [facility] 3 14:43:37 Degenera tion of lumbar interver tebral disc 07377560 Active 2023 DESHAUN MONGE [address] [place], [address], [facility] 4 14:22:08 Smoker 23002260 Active 2023 DESHAUN MONGE [address] [place], [address], [facility] 4 14:30:50 Essentia l hyperten peggy 92622017 Active 2024 DESHAUN MONGE [address] [place], [address], [facility] 14:33:02 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 2 diabetes mellitus 11428566719 9109 Active 2024 DESHAUN MONGE [address] [place], [address], [facility] Internal [facility] 14:33:24 Bilatera l stenosis of carotid arteries 907858451 Active 2024 DESHAUN MONGE [address] [place], [address], [facility] 14:37:32 Primary insomnia 6432579 Active 2024 DESHAUN MONGE [address] [place], [address], [facility] 14:41:01 Pain in left foot 78935667212 9107 Active 2024 DESHAUN MONGE [address] [place], [address], [facility] 16:01:10 Acute ankle pain 95358311319 105 Active 2024 DESHAUN MONGE [address] [place], [address], [facility] 16:04:01 Problem Notes None recorded. Medical Equipment None Reported. Allergies Allergen ID Allergen Name Allergen Category Reaction Reaction Severity Criticality Documentation Date Start Date Code Code System Note Provider Name and Address Organization Details Recorded Time 135 amoxicill in medicatio n Not available Not available Not available 04/20/2017 723 [facility] 8 14:51:12 6230 levofloxa carlo medicatio n Not available Not available Not available 02/03/2022 25000 RxNorm DESHAUN MONGE [address] [place], [address], [facility] 2 14:23:49 6231 metronida zole medicatio n Not available Not available Not available 02/03/2022 6922 RxNorm DESHAUN MONGE [address] [place], [address], [facility] 2 14:24:03 [...] Available Not Available Not Available Fluarix Quad 3130-6629 (PF) 60 mcg (15 mcg x 4)/0.5 [...] Updated DateTime 5 158.75 cm 30.4 kg/m2 50189.3 9 g 106 /min 95 % 95 % 162/78 mm[Hg] Anjelica [facility] 5 13:37:05 Date Recorded Body height Body mass index (BMI) Body weight Heart rate Oxygen saturation Oxygen saturation in Arterial blood by Pulse oximetry Systolic And Diastolic Provider Name and Address Organization Details Last Updated DateTime 5 158.75 cm 30.7 kg/m2 31975.5 8 g 111 /min 93 % 93 % 170/66 mm[Hg] Anjelica [facility] 5 14:13:56 Date Recorded Body height Body mass index (BMI) Body weight Heart rate Oxygen saturation Oxygen saturation in Arterial blood by Pulse oximetry Systolic And Diastolic Provider Name and Address Organization Details Last Updated DateTime 5 158.75 cm 30.2 kg/m2 00552.0 8 g 93 /min 93 % 93 % 158/82 mm[Hg] Anjelica [facility] 5 14:14:59 Date Recorded Body height Body mass index (BMI) Body weight Heart rate Oxygen saturation Oxygen saturation in Arterial blood by Pulse oximetry Systolic And Diastolic Provider Name and Address Organization Details Last Updated DateTime 5 158.75 cm 29.9 kg/m2 65288.4 1 g 98 /min 84 % 84 % 152/84 mm[Hg] Anjelica Arguello [facility] 5 14:23:29 Date Recorded Body height Body mass index (BMI) Body weight Heart rate Oxygen saturation Oxygen saturation in Arterial blood by Pulse oximetry Systolic And Diastolic Provider Name and Address Organization Details Last Updated DateTime 5 158.75 cm 29.9 kg/m2 34317.3 3 g 99 /min 97 % 97 % 150/86 mm[Hg] Ngozi Locke [facility] 5 15:54:05 Social History Question Answer Notes LastModified by Organizat ion Details LastModified Time Tobacco Smoking Status Former Smoker Quite a year and a half ago as of 05/02/2021 1 Pack Around 09/03/23 Cecilio garnett [facility] 09/12/2023 13:25:37 What Was The Date Of Your Most Recent Tobacco Screening? 12/08/2024 [email or web address] Information not available 12/08/2024 Sex: Unknown Functional [...] Vision or Eye Problems N Arthritis N Polyps N Infertility N Mental Disorder N Cancer N Varicosities N Stroke N Endometriosis N Bladder or Kidney Problems N High Cholesterol N Liver Disease N Headaches N Fibromyalgia N Kidney Disease N Allergies/Hayfever N Heart [...] mcg/0.3 mL dose 1 completed Jessica garnett [facility] 03/13/2023 08:16:13 Influenza, split virus, quadrivalent, preservative 8 completed Jessica garnett [facility] 03/13/2023 08:16:13 COVID-19, mRNA, LNP-S, PF, 30 mcg/0.3 mL dose 2 completed Jessica garnett [facility] 03/13/2023 08:16:13 influenza nasal, unspecified formulation 2 completed Jessica garnett [facility] 03/13/2023 08:16:13 Influenza, split virus, quadrivalent, preservative 0 completed Jessica garnett [facility] 03/13/2023 08:16:13 Tdap 5 completed Not Available [facility] 06/17/2022 03:04:48 COVID-19, mRNA, LNP-S, PF, 30 mcg/0.3 mL dose 1 completed Jessica garnett [facility] 03/13/2023 08:16:13 COVID-19, mRNA, LNP-S, PF, 30 mcg/0.3 mL dose 1 completed Jessica garnett [facility] 03/13/2023 08:16:13 Past Encounters Encounter ID Performer Location Encounter Start Date Encounter Closed Date Diagnosis/Indication Diagnosis SNOMED-CT Code Diagnosis ICD10 Code Diagnosis IMO Codes Diagnosis Note [id number] Diego Alex [facility] [address] [facility],[place] [address] 05/29/2017 13:34:22 05/30/2017 08:08:08 Type 2 diabetes mellitus 59993613 E11.9 follow Subclavian steal syndrome 58590371 G45.8 up to date with vascular, Dr. Wayne murphy anxiety disorder 97986627 F41.1 stable, rare lorazepam Hypercholesterolemia 136 42402 E78.00 check profile prior to next visit Low back pain 959053621 M54.5 discuss core strengthen ing exercises [id number] Diego Alex [facility] [address] [facility],[place] [address] 08/20/2017 10:55:37 08/20/2017 11:57:05 Acute low back pain 401330331 M54.5 Hypercholesterolemia 136 76041 E78.00 check profile prior to next visit [id number] Diego Alex DO [facility] [address] [facility],[place] [address] 09/26/2017 13:28:05 09/28/2017 11:32:36 Hypercholesterolemia 09284554 E78.00 Type 2 serge betes mellitus 34675368 E11.9 follow Screening procedure 2012 5006 Z13.9 Anxiety 51218617 F41.9 Tobacco de pendence syndrome 22943166 F17.200 Body mass index 25-29 - overweight 053911531 Z68.27 [id number] Diego Alex DO [facility] [address] [facility],[place] [address] 05/31/2018 13:24:04 05/31/2018 15:45:43 Hypercholesterolemia 94134957 E78.00 Type 2 serge betes mellitus 37044295 E11.9 follow A1C 6.8 Subclavian steal syndrome 58711785 G45.8 schedule appt w/ vascular, Dr. Black Pain in left knee 617335 1230 88996 M25.562 has f/u NEOS 6 weeks [id number] Diego Alex DO [facility] [address] [facility],[place] [address] 01/28/2018 13:47:20 01/28/2018 16:59:02 Vitamin D deficiency 11386378 E55.9 Hypercholesterolemia 136 92235 E78.00 stable Subclavian steal syndrome 81534883 G45.8 up to date with vascular, Dr. Black Type 2 serge betes mellitus 84166783 E11.9 follow A1C remains 6.6 Tobacco de pendence syndrome 85169760 F17.200 using chantix, continue with 100% cessation [id number] Diego Alex DO [facility] [address] [facility],[place] [address] 05/21/2018 15:41:46 05/21/2018 16:27:00 Sprain of medial collateral ligament of knee 27058300 S83.412A On examina tion - cardiac murmur 688690026 R01.1 Hypercholesterolemia 136 42408 E78.00 stable Type 2 serge betes mellitus 93175610 E11.9 follow A1C remains 6.6 [id number] Diego Alex [facility] [address] [facility],[place] [address] 10/01/2018 13:25:32 10/01/2018 13:57:09 Type 2 diabetes mellitus 55995509 E11.9 Anxiety 75342456 F41.9 Hypercholesterolemia 136 82269 E78.00 Pain in right foot 80926 10155 58669 M79.671 unclear etiology [id number] Diego Alex [facility] [address] [facility],[place] [address] 11/12/2018 14:02:26 11/12/2018 14:42:29 Type 2 diabetes mellitus 19119114 E11.9 well controlled with just diet/exerc ise Anxiety 92485342 F41.9 clonazepam for anxiety, goes through about 30 in a year Hypercholesterolemia 136 24227 E78.00 well controlled with simvastati n Pain in right foot 26785 83082 28361 M79.671 unclear etiology Old tear o f meniscus of knee 275087225 M23.209 Chronic ankle pain 21546 78829 9109 M25.579 [id number] Diego Alex [facility] [address] [facility],[place] [email or web address] [address] 08/01/2019 13:58:27 08/01/2019 14:37:09 Subclavian steal syndrome 45767830 G45.8 if it has progressed , will need to schedule her with vascular surgeon/ca rdiologist Adult [facility] examination 204639343 Z00.00 no other concerns today will watch BP > was told her BP is true in her left arm but can never get a read will disregard for now Tobacco de pendence syndrome 49735460 F17.200 will try chantix again when she feels ready did offer wellbutrin as an option but the patient declined [id number] Diego Alex [facility] [address],[place] [address] 12/15/2019 11:27:45 12/15/2019 11:57:31 Acute otitis media 2119897 H65.02 will treat with abx as well as OTC antihistam ine for the fluid build up in her ear will call on sunday to see if improvemen t, if no improvemen t will do fu Anxiety 81704374 F41.9 stable [id number] Diego Alex [facility] [address],[place] [address] 12/22/2019 16:08:00 12/22/2019 16:31:59 Serous otitis media 69997265 H65.02 will give the abx/sterio d drop the patient for patient would like her to use for the steriod component of the drop and continue to use the antihistam ine as well call with update Anxiety 00768861 F41.9 stable [id number] Diego Alex [facility] [address],[place] [address] 02/04/2020 08:16:55 02/04/2020 16:08:32 Anxiety 04171210 F41.9 stable Type 2 serge betes mellitus 20567953 E11.9 waiting on the BW to come in will call her when it comes it to go over with the patient [id number] Diego Alex [facility] [address],[place] [address] 08/04/2020 13:24:04 08/04/2020 16:04:14 Type 2 diabetes mellitus 53455466 E11.9 will start on medication and fu with recheck lab and appt in 3 mo Hypercholesterolemia 136 05695 E78.2 stable Tear of me niscus of knee 294526514 S83.[place] [id number] Diego Alex [facility] [address],[place] [address] 11/08/2020 08:27:57 11/09/2020 11:53:28 Anxiety 45874343 F41.1 stableneed s refill Type 2 serge betes mellitus 94297158 E11.9 A1c is down with medication and diet changeswil l continue at same dosagefu check 3 mo [id number] Diego Alex [facility] [address] [facility],[place] [address] 02/04/2021 08:35:12 02/04/2021 16:24:06 Anxiety 67611255 F41.1 stable Hypercholesterolemia 136 07016 E78.2 stable Type 2 serge betes mellitus 54492497 E11.9 A1c is down with medication and diet changeswil l continue at same dosagefu check 3 mo Subclavian steal syndrome 88993861 G45.8 stable [id number] Diego Alex DO [facility] [address] [facility], [place] [address] 05/02/2021 09:23:24 05/03/2021 11:09:15 Type 2 diabetes mellitus 71856916 E11.9 stable Hypercholesterolemia 136 71639 E78.2 stable Anxiety 91650198 F41.1 stable Ganglion c yst of left foot 8648219442 536530 M67.472 will set up with NEOS [id number] Diego Alex [facility] [address] [facility], [place] [address] 08/09/2021 08:46:02 08/12/2021 09:26:15 Pre-surgery evaluation 121295889 Z01.818 The patient was seen in the office today for pre-op evaluation . All medical conditions on patient's problem list were addressed and are currently stable, no interventi on needed at this time. Based on history and physical performed, the patient is cleared for surgery. Type 2 serge betes mellitus 73965980 E11.9 stable, last recheck 07/29/21 Subclavian steal syndrome 56567339 G45.8 stable, no change since initial diagnosis in 2017 [id number] Diego Alex [facility] [address] [facility],[place] [address] 11/01/2021 13:37:14 11/01/2021 15:56:38 Type 2 diabetes mellitus 38345257 E11.9 stable, last recheck 07/29/21 Hypercholesterolemia 136 61864 E78.2 stable Anxiety 40993411 F41.1 stable [id number] Diego Michel Alex [facility] [address] [facility] [address],[place] [address] 11/16/2021 09:08:36 11/16/2021 09:34:36 Constipation 14409998 K59.00 will continue stool softener and lactulose Diverticul itis of colon 393215040 K57.32 the patient will be seeing gastroente rology [id number] Diego Michel Alex [facility] [address] [facility] [address] [place] [email or web address] [address] 02/03/2022 14:08:55 02/03/2022 16:12:57 Type 2 diabetes mellitus 97471033 E11.9 stable, last recheck 07/29/21 Active or passive immunization 247076303 Z23 patient advised she is due for flu shot, pneu 23 & shingles Hypercholesterolemia 136 69005 E78.2 will need to recheckmix up at last [facility] recheck at 3 mos period Anxiety 40160569 F41.1 stableuses klonapin sparingly [id number] Diego AngelLu Abi [facility] [address] [facility] [address] [place] [address] 05/05/2022 14:05:49 05/05/2022 16:29:37 Type 2 diabetes mellitus 47332935 E11.9 increase her metformin to BID; her [facility] is [facility] months for a recheck Fatigue 98504396 R53.83 will set up lab-work [id number] Diego Alex [facility] [address] [facility] [address],[email or web address] [address] 09/04/2022 15:47:50 09/05/2022 08:40:05 Active or passive immunization 743917615 Z23 patient advised she is due for flu shot, pneu 23 & shingles Adult heal th examination 019167345 Z00.00 no other concerns today will watch BP > was told her BP is true in her left arm but can never get a read will disregard for now Hypercholesterolemia 136 39531 E78.2 bw is stable Type 2 serge betes mellitus 67263823 E11.9 increase her metformin to BID; her A1c is up to 7.9% fromwiaries fu with patient in three months for a recheck Anxiety 17798943 F41.1 stableuses klonapin sparingly [id number] Diego Alex [facility] [address] [facility],[place] [address] 12/12/2022 14:24:29 12/12/2022 15:14:57 Hypercholesterolemia 16717215 E78.2 stable Type 2 serge betes mellitus 84883093 E11.9 A1c is up to 7.7% Low back pain 935567710 M54.59 will start her on tramadol and tizanidine Anxiety 68712666 F41.1 stableuses klonapin sparingly [id number] Diego Alex [facility] [address] [facility],[place] [address] 03/13/2023 08:15:56 03/13/2023 14:35:04 Type 2 diabetes mellitus 97026636 E11.9 start glipizide Degenerati on of lumbar intervertebral disc 33320661 M51.36 will set up with XR lumbar spinewill need MRI for continous pain and no improvemen t with conservati ve therapy [id number] Diego Alex [facility] [address] [facility],[place] [address] 06/15/2023 14:21:00 06/15/2023 15:03:58 Type 2 diabetes mellitus 15982540 E11.9 doing much better Hypercholesterolemia 136 12524 E78.2 stable Low back pain 090388149 M54.59 stable [id number] Diego Alex [facility] [address] [facility] [address] [place] [address] 09/12/2023 13:22:13 09/14/2023 12:15:39 Depression screening 947164658 Z13.31 negative Anxiety 91035736 F41.1 stableuses Klonapin sparingly Type 2 serge betes mellitus 68574612 E11.9 doing much better Hypercholesterolemia 136 50618 E78.2 stable [id number] Diego Alex [facility] [address] [facility] [address] [place] [address] 12/18/2023 14:04:56 12/18/2023 16:38:40 Smoker 87314843 F17.200 starting on the vareniclin e starter arcenio for patient with instructio ns Type 2 serge betes mellitus 39160790 E11.9 still good despite dietary changeswil l work on getting her quitting smoking and following her diet [id number] Diego Alex [facility] [address] [facility] [address] [place] [address] 03/21/2024 13:27:45 03/21/2024 14:09:38 Degeneration of lumbar intervertebral disc 59946286 M51.369 will hold on second opinion Smoker 42389231 F17.200 starting on the vareniclin e starter arcenio for patient with instructio ns Type 2 serge betes mellitus 02962032 E11.9 stablework ing on smoking cessation [id number] Diego Alex [facility] [address] [facility] [address] [address] 06/17/2024 14:07:46 06/17/2024 16:07:05 Depression screening 203712032 Z13.31 negative Type 2 serge betes mellitus 39451527 E11.9 stable Subclavian steal syndrome 43896690 G45.8 stable, no change since initial diagnosis in 2017 Essential hypertension 06222467 I10 73855 will get me BP readings from home and report back in a week [id number] Diego Alex [facility] [address] [facility] [address] [place] [address] 09/01/2024 14:02:58 09/01/2024 15:25:02 Depression screening 338213006 Z13.31 negative Essential hypertension 89821312 I10 72565 will swtich to losartan Hyperglyce kaylah due to type 2 diabetes mellitus 6127193738 69891 E11.65 12262909 no improvemen t in glucosewil l go on the mounjaro now also has HLD, HTN, carotid artery stenosis Bilateral stenosis of carotid arteries 738960186 I65.23 589996 being monitored by cardiology every 18 mos Primary insomnia 2838108 F51.01 36033 working on sleep hygiene Anxiety 72434963 F41.1 stableuses Klonapin sparingly [id number] Diego Alex DO [facility] [address] [facility],[place] [place] [address] 10/03/2024 14:07:35 10/03/2024 15:14:03 Depression screening [id number] Z13.31 negative Hyperglyce kaylah due to type 2 diabetes mellitus [id number] E11.65 no improvemen t in glucosewil l go on the mounjaro now also has HLD, HTN, carotid artery stenosis [id number] Diego Alex [facility] [address] [facility],[place] [address] 12/08/2024 15:49:20 12/08/2024 16:26:01 Depression screening [id number] Z13.31 negative Pain in left foot [id number] 0620 35302 M79.672 [id number] Acute ankle pain 1167755 011 9105 M25.572 M25.571 [id number] recommend imaging looks like tissue changes fro tendinopat hy Essential hypertension [id number] I10 will switch to losartan Health Concerns Section Related Observation LastModified by Organization Detai ls LastModified Time None Recorded Concern Status LastModified by Organization Details LastModified Time None Recorded Advance Directives Directive None Recorded Payers Insurance Date Sequence Insurance Name Policy Number Policy Severino Covered Member ID Severino Member ID Guarantor Name 03/05/2024 1 [facility] [id number] Dashawn Jimenez [id number] Bryant Jimenez 12/05/2024 1 [place] [id number] Dashawn Jimenez [id number] Bryant Jimenez Notes Date Note Type Note Provider Name a nd Address Organization Details Recorded Time 5 text/html ROS as noted in the HPI T2DM: Patient presents today for follow-up for [...] at home and recheck DESHAUN MONGE [address] [place], [address], [facility] 03/21/2024 13:51:05 5 text/html ROS as noted in the HPI 3 mos f/u the patient is doing [...] back in 7 days DESHAUN MONGE [address] [place], [address], [facility] 06/17/2024 14:36:04 5 text/html ROS as noted in the HPI medication f/u the patient reports that she is doing well has to take ASA 81 mg due to carotid artery stenosis (mild, about 50% blockage) follows cardiology the patient is still on the simvastatinthe lisinopril was causing the dry cough, switching to losartan the patient reports that she is still having issue sleeping moods been fine the patient is otherwise doing DESHAUN MONGE [address] [place], [address], [facility] 09/01/2024 14:42:45 5 text/html ROS as noted in the HPI 1 mos fu 09/01/24:the patient reports that she is doing well has to take ASA 81 mg due to carotid artery stenosis (mild, about 50% blockage) follows cardiology the patient is still on the simvastatinthe lisinopril was causing the dry cough, switching to losartan the patient reports that she is still having issue sleeping moods been fine the patient is otherwise doing 10/04/24: doing wellglucose readings are excellent with the mounjarono serious side effects with the medication, some nausea with the first inj but otherwise very tolerable will cont on the 2.5 mg mounjarothe patient was given free samples today in office so she can stay on track since she is due today DESHAUN MONGE [address] [place], [address], [facility] 10/03/2024 14:41:52 5 text/html ROS as noted in the [...] the skinotherwise doing well DESHAUN MONGE [address] [place], [address], [facility] 12/08/2024 16:16:18 OBGyn Episode No OBEpisode recorded.
== END 2024-12-11 12:06 | disposition home or self-care (01) ==
LOC: HO.XRAY 12:05
PROVIDERS: PCP Internal Medicine; Visit Provider Physician Assistant
DX: M25.572 Pain in left ankle and joints of left foot (principal); M25.571 Pain in right ankle and joints of right foot
CPT/HCPCS: 73610

== ENCOUNTER → 2024-12-11 12:10 | Outpatient (BNV) | payer OTHER, SELFPAY | PROVIDERS: PCP Internal Medicine; Visit Provider Radiology Diagnostic Ultrasound | DX: M25.571 Pain in right ankle and joints of right foot (principal); M25.572 Pain in left ankle and joints of left foot | CPT/HCPCS: 73610 ==

== ENCOUNTER 2024-12-22 10:48 | Outpatient (REF) | payer OTHER, SELFPAY ==
--- OUTSIDE RECORDS SUMMARY | 2024-12-22 13:13 | XMS_ITS | Clinical Summary ---
Author Organization [facility] Address [address] [address] Phone Care Team Providers Care Brake Rider Name Role Phone Diego Alex Primary Care Provider [phone] Allergies Active Allergy Reactions Criticality Noted Date [...] Booster 06/18/2024 06/18/2014 INFLUENZA VACCINE (#1) 2024 , 12/05/2018, 11/25/2017, Additional history exists COVID-19 VACCINE [...] Date/Time Associated Diagnosis Comments BASIC METABOLIC PANEL (BMP) STAT 06/16/2022 2:39 PM EDT from Last 3 Months or Most Recently Relevant to Health Maintenance Results * (ABNORMAL) Basic metabolic panel (06/16/2022 2:39 PM EDT) SODIUM 137 133 - 146 mmol/L [facility] CHLORIDE 100 96 - 108 mmol/L [facility] POTASSIUM 4.5 3.3 - 5.1 mmol/L [facility] Comment:Specimen slightly he molyzed, result may be falsely elevated. CO2 24 21 - 35 mmol/L [facility] BUN 9 6 - 19 mg/dL [facility] CREATININE 0.90 0.5 - 1.5 mg/dL [facility] GLUCOSE 146(H) 70 - 99 mg/dL [facility] CALCIUM 10.0 8.4 - 10.3 mg/dL [facility] EGFR 73 >59 mL/min/1.7 3m2 [facility] Comment:Estimated glomerular filtration rate calculated using the CKD-EPI refit equation. ANION GAP 18 10 - 20 mmol/L [facility] Blood 06/16/2022 2:39 PM EDT 06/16/2022 3:01 PM EDT Obey Deal MD LAB BLOOD BKR ORDERABLES Final Result [facility] [address] [place] [address] from Last 3 Months or Most Recently Relevant to Health Maintenance Insurance HMO O O O O O O O O Care Teams Brake Rider Relationship Specialty Start Date End Date Diego Alex DO [email or web address] PCP - General Internal Medicine 05/31/18 Additional Source Comments The information contained in this document represents components of the legal health record. It is not the complete legal health record.[facility]
--- OUTSIDE RECORDS SUMMARY | 2024-12-22 13:13 | XMS_ITS | Data Portability ---
Author Organization [facility], Telehealth Patient Home Address [address] [place] [address] Assessment No assessment recorded. Plan of Treatment Reminders Order Date Submit Date Provider Last Modified By Organization Details Last Modified Time Details Appointments FOLLOW UP 15 2025 01:30P DESHAUN BOYCE Not available Not available Not available Lab CMP, serum or plasma 2024 025 [facility], [address] [place] [address], [id number], 08/28/2024 13:32:45 hemoglobi n A1c, QN, blood 2024 025 [facility], [address] [place] [address], [id number], 08/28/2024 13:32:46 CBC w/ auto diff 2024 025 [facility], [address] [place] [address], [id number], 08/28/2024 13:32:46 CMP, serum or plasma 2024 025 [facility], [address] [place] [address], [id number], 08/28/2024 13:32:45 hemoglobi n A1c, QN, blood 2024 025 [facility], [address] [place] [address], [address], 08/28/2024 13:32:46 CBC w/ auto diff 2024 025 [facility], [address] [place] [address], [address], 08/28/2024 13:32:46 CMP, serum or plasma 2024 025 [facility], [address] [place] [address], [address], 03/21/2024 13:54:31 hemoglobi n A1c, QN, blood 2024 025 [facility], [address] [place] [address], [address], 03/21/2024 13:54:31 CBC w/ auto diff 2024 025 [facility], [address] [place] [address], [id number], 03/21/2024 13:54:31 lipid panel, blood 2024 025 [facility], [address] [place] [address], [address], 03/21/2024 13:54:31 Referral podiatris t referral 2024 025 ihsan Hannon DPM, [address] [facility], [place], [address], 2024 09:19:08 Procedures None recorded. Surgeries None recorded. Imaging XR, ankle, 3 or more view 2024 025 [email or web address] 10 [facility], [address] [place] [address], [id number], 12/22/2024 08:26:28 XR, ankle, 3 or more view 2024 025 [facility], [address] [place] [address], [address], 12/11/2024 15:15:50 Medication Orders losartan 100 mg tablet 2024 025 [facility]/Pharmacy #2024, [address] [place], [address], 12/08/2024 16:06:40 Mounjaro 2.5 mg/0.5 mL subcutane ous pen injector 2024 025 [facility]/Pharmacy #2024, [address] [place], [address], 12/08/2024 15:55:57 losartan 50 mg tablet 2024 025 [facility]/Pharmacy #2024, [address] [place], [address], 09/01/2024 14:31:17 Mounjaro 2.5 mg/0.5 mL subcutane ous pen injector 2024 025 [facility] [address] [place], [address], 12/08/2024 15:55:48 varenicli ne tartrate 1 mg tablet 2024 025 [facility] [address] [place], [address], 03/21/2024 13:46:35 Patient TargetsNo targets recorded. Patient InstructionsNo instructions recorded. 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 [facility] (Medical Records) [address] [place], [address], 12/12/2024 08:55:53 12/12/19 25 12/11/2024 XR, ankle , 3 or more view No observ ation record ed. [facility] (Medical Records) [address] [facility], [place], [address], 12/12/2024 08:55:54 Result Notes None recorded. Problems Name Problem SNOMED Code Status Onset Date Resolution Date Notes Provider Name and Address Organization Details Recorded Time Type 2 diabetes mellitus 98656585 Active 2017 Anjelica garnett [facility] 4 11:55:58 Anxiety 92677896 Active 2017 Anjelica garnett [facility] Internal [facility] 4 11:55:58 Hypercho lesterol emia 04127675 Active 2017 Anjelicapatricia garnett [facility] Internal [facility] 4 11:55:58 Subclavi an steal syndrome 37493379 Active 2017 2017 Not Available [facility] 2 01:17:34 Constipa tion 29334083 Active 2021 Not Available [facility] 3 03:04:48 Divertic ulitis of colon 811960185 Active 2021 clindamyc in works the best bactrim is not effective DESHAUN MONGE [address] [place], [address], [facility] 3 16:50:19 Fatigue 91313546 Active 2022 Not Available [facility] 3 03:04:48 Low back pain 149298562 Active 2022 DESHAUN MONGE [address] [place], [address], [facility] 3 14:43:37 Degenera tion of lumbar interver tebral disc 36142166 Active 2023 DESHAUN MONGE [address] [place], [address], [place] [facility] 4 14:22:08 Smoker 72325565 Active 2023 DESHAUN MONGE [address] [place], [address], [facility] 4 14:30:50 [facility]entia l hyperten peggy 22331207 Active 2024 DESHAUN MONGE [address] [place], [address], [facility] Internal [facility] 5 14:33:02 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 2 diabetes mellitus 56862161198 9109 Active 2024 DESHAUN MONGE [address] [place], [address], [facility] 5 14:33:24 Bilatera l stenosis of carotid arteries 317180935 Active 2024 DESHAUN MONGE [address] [place], [address], [facility] 5 14:37:32 Primary insomnia 2995868 Active 2024 DESHAUN MONGE [address] [place], [address], [facility] 5 14:41:01 Pain in left foot 84964747919 9107 Active 2024 DESHAUN MONGE [address] [place], [address], [facility] Internal [facility] 5 16:01:10 Acute ankle pain 36644487816 105 Active 2024 DESHAUN MONGE [address] [place], [address], [facility] 5 08:56:43 Problem Notes None recorded. Medical Equipment None Reported. Allergies Allergen ID Allergen Name Allergen Category Reaction Reaction Severity Criticality Documentation Date Start Date Code Code System Note Provider Name and Address Organization Details Recorded Time 135 amoxicill in medicatio n Not available Not available Not available 04/20/2017 723 RxNorm Cathy garnett [facility] Medicine 8 14:51:12 6230 levofloxa carlo medicatio n Not available Not available Not available 02/03/2022 64150 RxNoDESHAUN Gregory [address] [place], [address], [facility] 2 14:23:49 6231 metronida zole medicatio n Not available Not available Not available 02/03/2022 6922 RxNoDESHAUN Gregory [address] [place], [address], [facility] 2 14:24:03 Medications [...] Available Not Available Not Available Fluarix Quad 0776-3233 (PF) 60 mcg (15 mcg x 4)/0.5 [...] Updated DateTime 5 158.75 cm 30.4 kg/m2 89891.3 9 g 106 /min 95 % 95 % 162/78 mm[Hg] Anjelica [facility] 5 13:37:05 Date Recorded Body height Body mass index (BMI) Body weight Heart rate Oxygen saturation Oxygen saturation in Arterial blood by Pulse oximetry Systolic And Diastolic Provider Name and Address Organization Details Last Updated DateTime 5 158.75 cm 30.7 kg/m2 33115.5 8 g 111 /min 93 % 93 % 170/66 mm[Hg] Anjelica [facility] 5 14:13:56 Date Recorded Body height Body mass index (BMI) Body weight Heart rate Oxygen saturation Oxygen saturation in Arterial blood by Pulse oximetry Systolic And Diastolic Provider Name and Address Organization Details Last Updated DateTime 5 158.75 cm 30.2 kg/m2 76128.0 8 g 93 /min 93 % 93 % 158/82 mm[Hg] Anjelica [facility] 5 14:14:59 Date Recorded Body height Body mass index (BMI) Body weight Heart rate Oxygen saturation Oxygen saturation in Arterial blood by Pulse oximetry Systolic And Diastolic Provider Name and Address Organization Details Last Updated DateTime 5 158.75 cm 29.9 kg/m2 91156.4 1 g 98 /min 84 % 84 % 152/84 mm[Hg] Anjelica Arguello [facility] 5 14:23:29 Date Recorded Body height Body mass index (BMI) Body weight Heart rate Oxygen saturation Oxygen saturation in Arterial blood by Pulse oximetry Systolic And Diastolic Provider Name and Address Organization Details Last Updated DateTime 158.75 cm 29.9 kg/m2 51061.3 3 g 99 /min 97 % 97 % 150/86 mm[Hg] Ngozi Garsiamond [facility] Internal Medicine 5 15:54:05 Social History Question Answer Notes LastModified by Organizat ion Details LastModified Time Tobacco Smoking Status Former Smoker Quite a year and a half ago as of 05/02/2021 1 Pack Around 09/03/23 [facility] 09/12/2023 13:25:37 What Was The Date Of Your Most Recent Tobacco Screening? 12/08/2024 [email or web address] Information not available 12/08/2024 Sex: Unknown Functional [...] mcg/0.3 mL dose 1 completed Jessica garnett [facility] 03/13/2023 08:16:13 Influenza, split virus, quadrivalent, preservative 8 completed Jessica garnett [facility] 03/13/2023 08:16:13 COVID-19, mRNA, LNP-S, PF, 30 mcg/0.3 mL dose 2 completed Jessica garnett [facility] 03/13/2023 08:16:13 influenza nasal, unspecified formulation 2 completed Jessica garnett [facility] 03/13/2023 08:16:13 Influenza, split virus, quadrivalent, preservative 0 completed Jessica garnett [facility] 03/13/2023 08:16:13 Tdap 5 completed Not Available [facility] 06/17/2022 03:04:48 COVID-19, mRNA, LNP-S, PF, 30 mcg/0.3 mL dose 1 completed Jessica garnett [facility] 03/13/2023 08:16:13 COVID-19, mRNA, LNP-S, PF, 30 mcg/0.3 mL dose 1 completed Jessica garnett [facility] 03/13/2023 08:16:13 Past Encounters Encounter ID Performer Location Encounter Start Date Encounter Closed Date Diagnosis/Indication Diagnosis SNOMED-CT Code Diagnosis ICD10 Code Diagnosis IMO Codes Diagnosis Note [id number] Diego Alex DO [facility] Internal Medicine [address] [facility],[place] [address] 05/29/2017 13:34:22 05/30/2017 08:08:08 Type 2 diabetes mellitus 79646386 E11.9 follow Subclavian steal syndrome 07311698 G45.8 up to date with vascular, Dr. Black Generalize jeffrey anxiety disorder 30857972 F41.1 stable, rare lorazepam Hypercholesterolemia 136 74519 E78.00 check profile prior to next visit Low back pain 534365260 M54.5 discuss core strengthen ing exercises [id number] [facility] Internal Medicine [address] [facility],[place] [facility] [place] [address] 08/20/2017 10:55:37 08/20/2017 11:57:05 Acute low back pain 677658794 M54.5 Hypercholesterolemia 136 82870 E78.00 check profile prior to next visit [id number] [facility] Internal Medicine [address] [facility],[place] [address] 09/26/2017 13:28:05 09/28/2017 11:32:36 Hypercholesterolemia 00977455 E78.00 Type 2 serge betes mellitus 97928137 E11.9 follow Screening procedure 2012 5006 Z13.9 Anxiety 18514842 F41.9 Tobacco de pendence syndrome 50123322 F17.200 Body mass index 25-29 - overweight 332241700 Z68.27 [id number] [facility] [address] [facility],[place] [address] 05/31/2018 13:24:04 05/31/2018 15:45:43 Hypercholesterolemia 81093056 E78.00 Type 2 serge betes mellitus 39600088 E11.9 follow A1C 6.8 Subclavian steal syndrome 75872627 G45.8 schedule appt w/ vascular, Dr. Black Pain in left knee 083475 7569 89651 M25.562 has f/u NEOS [id number] [facility] Internal Medicine [address] [facility],[place] [address] 01/28/2018 13:47:20 01/28/2018 16:59:02 Vitamin D deficiency 60213248 E55.9 Hypercholesterolemia 136 70206 E78.00 stable Subclavian steal syndrome 72613604 G45.8 up to date with vascularDr. Black Type 2 serge betes mellitus 11930003 E11.9 follow A1C remains 6.6 Tobacco de pendence syndrome 87024086 F17.200 using chantix, continue with 100% cessation [id number] [facility] Internal Medicine [address] [facility],[place] [facility] [place] [address] 05/21/2018 15:41:46 05/21/2018 16:27:00 Sprain of medial collateral ligament of knee 77667821 S83.412A On examina tion - cardiac murmur 844905616 R01.1 Hypercholesterolemia 136 23024 E78.00 stable Type 2 serge betes mellitus 43898213 E11.9 follow A1C remains 6.6 [id number] Diego Alex DO [facility] Internal Medicine [address] [facility],[place] [facility] [place] [address] 10/01/2018 13:25:32 10/01/2018 13:57:09 Type 2 diabetes mellitus 97472379 E11.9 Anxiety 21165255 F41.9 Hypercholesterolemia 136 07265 E78.00 Pain in right foot 00779 87553 44723 M79.671 unclear etiology [id number] Diego Alex DO [facility] Internal Medicine [address] [facility],[place] [facility] [place] [address] 11/12/2018 14:02:26 11/12/2018 14:42:29 Type 2 diabetes mellitus 50127971 E11.9 well controlled with just diet/exerc ise Anxiety 55726937 F41.9 clonazepam for anxiety, goes through about 30 in a year Hypercholesterolemia 136 46763 E78.00 well controlled with simvastati n Pain in right foot 21272 47578 61785 M79.671 unclear etiology Old tear o f meniscus of knee 776734871 M23.209 Chronic ankle pain 97024 21502 9[address]25.[id number] [facility] Internal Medicine [address] [facility],[place] [facility] [address] 08/01/2019 13:58:27 08/01/2019 14:37:09 Subclavian steal syndrome 65241491 G45.8 if it has progressed , will need to schedule her with vascular surgeon/ca rdiologist [facility] examination 677160891 Z00.00 no other concerns today will watch BP > was told her BP is true in her left arm but can never get a read will disregard for now Tobacco de pendence syndrome 22628040 F17.200 will try chantix again when she feels ready did offer wellbutrin as an option but the patient declined [id number] [facility] Internal Medicine [address] [place] [address],[place] [address] 12/15/2019 11:27:45 12/15/2019 11:57:31 Acute otitis media 9651271 H65.02 will treat with abx as well as OTC antihistam ine for the fluid build up in her ear will call on sunday to see if improvemen t, if no improvemen t will do fu Anxiety 00930334 F41.9 stable [id number] [facility] Internal [address],[place] [address] 12/22/2019 16:08:00 12/22/2019 16:31:59 Serous otitis media 18140559 H65.02 will give the abx/sterio d drop the patient for patient would like her to use for the steriod component of the drop and continue to use the antihistam ine as well call with update Anxiety 99012381 F41.[id number] [facility] Internal Medicine [address] [place] [address],[place] [address] 02/04/2020 08:16:55 02/04/2020 16:08:32 Anxiety 12555464 F41.9 stable Type 2 serge betes mellitus 52364852 E11.9 waiting on the to come in will call her when it comes it to go over with the patient [id number] [facility] Internal Medicine [address] [place] [address],[place] [address] 08/04/2020 13:24:04 08/04/2020 16:04:14 Type 2 diabetes mellitus 58541835 E11.9 will start on medication and fu with recheck lab and appt in 3 mo Hypercholesterolemia 136 67967 E78.2 stable Tear of me niscus of knee 783379799 S83.207[place] [id number] [facility] Internal Medicine [address] [facility],[place] [address] 11/08/2020 08:27:57 11/09/2020 11:53:28 Anxiety 10490870 F41.1 stableneed s refill Type 2 serge betes mellitus 01676202 E11.9 A1c is down with medication and diet changeswil l continue at same dosagefu check [id number] [facility] Internal Medicine [address] [facility],[place] [address] 02/04/2021 08:35:12 02/04/2021 16:24:06 Anxiety 97756338 F41.1 stable Hypercholesterolemia 136 51532 E78.2 stable Type 2 serge betes mellitus 75823634 E11.9 A1c is down with medication and diet changeswil l continue at same dosagefu check 3 mo Subclavian steal syndrome 42305387 G45.[id number] [facility] Internal Medicine [address] [facility],[place] [address] 05/02/2021 09:23:24 05/03/2021 11:09:15 Type 2 diabetes mellitus 68328799 E11.9 stable Hypercholesterolemia 136 74943 E78.2 stable Anxiety 87309404 F41.1 stable Ganglion c yst of left foot 4116886970 302515 M67.472 will set up with [facility] [id number] [facility] Internal Medicine [address] [facility], [place] [address] 08/09/2021 08:46:02 08/12/2021 09:26:15 Pre-surgery evaluation 832756915 Z01.818 The patient was seen in the office today for pre-op evaluation . All medical conditions on patient's problem list were addressed and are currently stable, no interventi on needed at this time. Based on history and physical performed, the patient is cleared for surgery. Type 2 serge betes mellitus 17530270 E11.9 stable, last recheck 07/29/21 Subclavian steal syndrome 78787926 G45.8 stable, no change since initial diagnosis in [id number] [facility] Internal Medicine [address] [facility],[place] [address] 11/01/2021 13:37:14 11/01/2021 15:56:38 Type 2 diabetes mellitus 71152770 E11.9 stable, last recheck 07/29/21 Hypercholesterolemia 136 42426 E78.2 stable Anxiety 03952782 F41.[id number] [facility] Internal Medicine [address] [facility],[place] [address] 11/16/2021 09:08:36 11/16/2021 09:34:36 Constipation 15870642 K59.00 will continue stool softener and lactulose Diverticul itis of colon 964863848 K57.32 the patient will be seeing gastroente rology [id number] [facility] Internal Medicine [address] [facility],[place] [address] 02/03/2022 14:08:55 02/03/2022 16:12:57 Type 2 diabetes mellitus 28767913 E11.9 stable, last recheck 07/29/21 Active or passive immunization 436935777 Z23 patient advised she is due for flu shot, pneu 23 & shingles Hypercholesterolemia 136 87871 E78.2 will need to recheckmix up at last apptwill recheck at 3 mos period Anxiety 78913441 F41.1 stableuses klonapin sparingly [id number] [facility] Internal Medicine [address] [facility],[place] [address] 05/05/2022 14:05:49 05/05/2022 16:29:37 Type 2 diabetes mellitus 32497521 E11.9 increase her metformin to BID; her A1c is up to 7.9% fromwill fu with patient in three months for a recheck Fatigue 49057488 R53.83 will set up lab-work [id number] [facility] Internal Medicine [address] [facility],[place] [address] 09/04/2022 15:47:50 09/05/2022 08:40:05 Active or passive immunization 452235762 Z23 patient advised she is due for flu shot, pneu 23 & shingles Adult heal th examination 680194287 Z00.00 no other concerns today will watch BP > was told her BP is true in her left arm but can never get a read will disregard for now Hypercholesterolemia 136 71088 E78.2 bw is stable Type 2 serge betes mellitus 51800921 E11.9 increase her metformin to BID; [facility] for a recheck Anxiety 29041350 F41.1 stableuses klonapin sparingly [id number] [facility] Internal Medicine [address] [facility],[place] [address] 12/12/2022 14:24:29 12/12/2022 15:14:57 Hypercholesterolemia 68606135 E78.2 stable Type 2 serge betes mellitus 46470007 E11.9 A1c is up to 7.7% Low back pain 347852226 M54.59 will start her on tramadol and tizanidine Anxiety 08292843 F41.1 stableuses klonapin sparingly [id number] Diego Alex [facility] Internal Medicine [address] [facility],[place] [address] 03/13/2023 08:15:56 03/13/2023 14:35:04 Type 2 diabetes mellitus 38897284 E11.9 start glipizide Degenerati on of lumbar intervertebral disc 01143244 M51.36 will set up with XR lumbar spinewill need MRI for continous pain and no improvemen t with conservati ve therapy [id number] Diego Alex [facility] Internal Medicine [address] [facility],[place] [address] 06/15/2023 14:21:00 06/15/2023 15:03:58 Type 2 diabetes mellitus 82506354 E11.9 doing much better Hypercholesterolemia 136 90702 E78.2 stable Low back pain 623132674 M54.[id number] [facility] Internal Medicine [address] [facility],[place] [address] 09/12/2023 13:22:13 09/14/2023 12:15:39 Depression screening 021814997 Z13.31 negative Anxiety 42797421 F41.1 stableuses Klonapin sparingly Type 2 serge betes mellitus 05176874 E11.9 doing much better Hypercholesterolemia 136 42021 E78.[id number] [facility] Internal Medicine [address] [facility],[place] [address] 12/18/2023 14:04:56 12/18/2023 16:38:40 Smoker 23577089 F17.200 starting on the vareniclin e starter arcenio for patient with instructio ns Type 2 serge betes mellitus 23143382 E11.9 still good despite dietary changesshiva mayen work on getting her quitting smoking and following her diet [id number] Diego Alex [facility] Internal Medicine [address] [facility],[place] [address] 03/21/2024 13:27:45 03/21/2024 14:09:38 Degeneration of lumbar intervertebral disc 99259986 M51.369 will hold on second opinion Smoker 34253703 F17.200 starting on the vareniclin e starter arcenio for patient with instructio ns Type 2 serge betes mellitus 80749548 E11.9 stablework ing on smoking cessation [id number] Diego Alex [facility] Internal Medicine [address] [facility],[place] [address] 06/17/2024 14:07:46 06/17/2024 16:07:05 Depression screening 639909908 Z13.31 negative Type 2 serge betes mellitus 96461609 E11.9 stable Subclavian steal syndrome 99096273 G45.8 stable, no change since initial diagnosis in 2017 Essential hypertension 69479265 I10 38702 will get me BP readings from home and report back in a week [id number] Diego [address] [facility] Internal Medicine [address] [facility],[place] [address] 09/01/2024 14:02:58 09/01/2024 15:25:02 Depression screening 855931709 Z13.31 negative Essential hypertension 11310572 I10 24584 will swtich to losartan Hyperglyce kaylah due to type 2 diabetes mellitus 9192520851 04277 E11.65 12136523 no improvemen t in glucosewil l go on the [facility] now also has HLD, HTN, carotid artery stenosis Bilateral stenosis of carotid arteries 063630777 I65.23 151681 being monitored by cardiology every 18 mos Primary insomnia 7873922 F51.01 61623 working on sleep hygiene Anxiety 64403846 F41.1 stableuses Klonapin sparingly [id number] Diego Alex [facility] Internal Medicine [address] [facility],[place] [address] 10/03/2024 14:07:35 10/03/2024 15:14:03 Depression screening [id number] Z13.31 negative Hyperglyce kaylah due to type 2 diabetes mellitus [id number] 34143 E11.65 no improvemen t in glucosewil l go on the [facility] [employer] now also has HLD, HTN, carotid artery stenosis [id number] Diego Alex [facility] [address] [facility] [address] 12/08/2024 15:49:20 12/08/2024 16:26:01 Depression screening [id number] Z13.31 negative Pain in left foot 038178 3657 87513 M79.672 211844 Acute ankle pain 0816805 011 9105 M25.572 M25.571 [id number] recommend imaging looks like tissue changes fro tendinopat hy Essential hypertension [id number] I10 will switch to losartan Health Concerns Section Related Observation LastModified by Organization Detai ls LastModified Time None Recorded Concern Status LastModified by Organization Details LastModified Time None Recorded Advance Directives Directive None Recorded Payers Insurance Date Sequence Insurance Name Policy Number Policy Severino Covered Member ID Severino Member ID Guarantor Name 03/05/2024 1 [facility] [id number] Dashawn Jimenez [id number] Bryant Jimenez 12/05/2024 1 [id number] Dashawn Jimenez [id number] Bryant Jimenez Notes Date Note Type Note Provider Name a nd Address Organization Details Recorded Time 01/31/202 5 text/html ROS as noted in the [...] at home and recheck DESHAUN MONGE [address] [place], [address], [facility] 03/21/2024 13:51:05 5 [...] back in 7 days DESHAUN MONGE [address] [place], [address], [facility] 06/17/2024 14:36:04 5 [...] patient is otherwise doing DESHAUN MONGE [address] [place], [address], [facility] 09/01/2024 14:42:45 5 [...] she is due today DESHAUN MONGE [address] [place], [address], [facility] 10/03/2024 14:41:52 5 [...] the skinotherwise doing well DESHAUN MONGE [address] [place], [address], [facility] 12/08/2024 16:16:18 OBGyn Episode No OBEpisode recorded.
--- OUTSIDE RECORDS SUMMARY | 2024-12-22 13:13 | XMS_ITS | Patient Health Record ---
Author Organization [facility] Address [address] [place] [address] Care Team Providers Care Gis Professor Name Role Phone Lily (RETIRED) Ariel REN Primary Care Provide Balta Ortiz Jr Unavailable Allergies Allergen (clinical drug ingredient) [...] Status Risk Notes Problem Colon cancer screening (745246324) Colon cancer screening (Z12.11) Active confirmed Problem Pre-procedure evaluation check (029175670) Encounter for other preprocedural examination (Z01.818) Active confirmed Plan Of Treatment Future Test Test Name Order Date COLONOSCOPY 01/28/2015 Insurance Providers Payer Name Payer Address Payer Phone Subscriber Number Group Number Insured Name Patient Relationship to Insured Coverage Start Date Coverage End Date [facility] [address] [place] [address] [phone] [id number] VITO FLORIAN Self - patient is the insured Medical (General) History Medical History History ICD Code diabetes mellitus(diet controlled) anxiety Surgical History Surgery Date(Month/Year) cervical cauterization 1983 cholecystectomy sigmoidoscopy for fecal impaction
--- OUTSIDE RECORDS SUMMARY | 2024-12-22 13:13 | XMS_ITS | Encounter Summary ---
Author Organization [facility] Address [address] [address] Phone Care Team Providers Care Geometry Teacher Name Role Phone Diego Alex Primary Care Provider [phone] Encounter Details Date Type Department Care Team (Late st Contact Info) Description 06/16/2022 Procedure Pass [facility], Ct Scan - [address] [address] Social History Tobacco Use Types Packs/Day Years [...] 4:36 PM EDT Shoshana Loomis, GWENDOLYN * [place] Suicide Severity Rating Scale (Screener/Recent Self-Report) Question [...] on filedocumented in this encounter Care Teams Geometry Teacher Relationship Specialty Start Date End Date Diego Alex DO [email or web address] PCP - General Internal Medicine 05/31/18 documented as of this encounter Additional Source Comments The information contained in this document represents components of the legal health record. It is not the complete legal health record.[facility]
--- OUTSIDE RECORDS SUMMARY | 2024-12-22 13:13 | XMS_ITS | Encounter Summary ---
Author Organization [facility] Address [address] [address] Phone Care Team Providers Care Community Resource Consultant Name Role Phone Diego Alex DO Primary Care Provider [phone] Reason for Referral * Physical Therapy (Routine) - Closed Specialty Diagnoses / Procedures Referred By Contac t Referred To Contact Physical Therapy Diagnoses Encounter for rehabilitation System, Provider Not In, PhD [address] [place] [address] Phone: tel: Referral ID Status Reason Start Date Expiration Date Visits Re quested Visits Authorized [id number] Closed 06/25/2018 02/18/2019 25 25 Encounter Details Date Type Department Care Team (Late st Contact Info) Description 06/03/2018 Transcribe Orders [facility] [address] [place] [address] Diego Alex DO [address] [facility] [place] [address] [email or web address] Encounter for rehabilitation (Primary Dx) Social History [...] Diagnoses Orde r Schedule Ambulatory referral to [facility] Physical Therapy Outpatient Referral Routine Encounter for rehabilitation Ordered: 06/03/2018 documented as of this encounter Visit Diagnoses Diagnosis Encounter for rehabilitation- Primary documented in this encounter Care Teams Community Resource Consultant Relationship Specialty Start Date End Date Diego Alex DO [email or web address] PCP - General Internal Medicine 05/31/18 documented as of this encounter Additional Source Comments The information contained in this document represents components of the legal health record. It is not the complete legal health record.[facility]
== END 2024-12-22 10:49 | disposition home or self-care (01) ==
LOC: HO.MAMMO 10:48
PROVIDERS: PCP Internal Medicine; Visit Provider Internal Medicine
DX: Z12.31 Encounter for screening mammogram for malignant neoplasm of breast (principal)
CPT/HCPCS: 77063; 77067

== ENCOUNTER → 2024-12-22 11:00 | Outpatient (BNV) | payer OTHER, SELFPAY | PROVIDERS: PCP Internal Medicine; Visit Provider Internal Medicine | DX: Z12.31 Encounter for screening mammogram for malignant neoplasm of breast (principal) | CPT/HCPCS: 77063; 77067 ==